=== PATIENT | female | born 1990 | race Caucasian/White ===

== ENCOUNTER 2019-09-30 09:27 | Emergency (ER) | payer SELFPAY ==
[~2019-09-30] VITALS: Ht 173 cm; Wt 86.0 kg
[~2019-09-30 09:27] MED LIST: AZIT-21 PO; CEPH500C PO; CYCL10TA9 PO; DEPRESSION; DOXY100C2 PO; FLUO40CA12 PO; GUAI5LIQ3 PO; HYDR25CA5 PO; METR500T PO; NAPR-243 PO; NITR100C3 PO; ONDA-42 PO; PREN1TAB39 PO; SERT25TA PO; SERT50TA PO
--- OUTSIDE RECORDS SUMMARY | 2019-09-30 09:33 | XMS REPORT | Continuity of Care Document ---
Author Organization Unknown Address Unknown Phone Unavailable Allergies There is no data. Medications There is no data. Problems There is no data. Procedures There is no data. Results There is no data. Encounters ACCT No. Visit Date/Time Discharge Status Pt. Type Provider Facility Loc./Unit Complaint [id number] 12/14/2018 15:10:00 12/14/2018 23:59: 59 CLS Outpatient RUDY LEIVA [facility]
[2019-09-30] MEDS ORDERED: BENZ-13 PO (09:39)
[2019-09-30] MEDS ORDERED: AZIT1PAC PO (09:39)
[2019-09-30] MEDS ORDERED: OMEP20CA18 (09:39)
[2019-09-30] MEDS ORDERED: ESTR0.5T (09:39)
[2019-09-30] MEDS ORDERED: RT-ALBUINH IH (09:39)
[2019-09-30] MEDS ORDERED: PRD50T PO (09:50)
--- NOTE | 2019-09-30 09:51 | ED Cough/URI ---
General Chief Complaint: Respiratory Problems Stated Complaint: COUGH,SOA,HEADACHE Nursing Triage Note: Patient c/o cough x 10 days. was treated at urgent care on 09/24 and given inhaler, zithromax and tessalon pearles. patient states she has not gotten better Sepsis Screen: No Definite Risk Source: patient Exam Limitations: no limitations History of Present Illness Date Seen by Provider: Sep 30, 2019 Time Seen by Provider: 09:47 Initial Comments Intermittent cough and shortness of breath for the past 10 days. Was seen at an outpatient clinic and diagnosed with bronchitis and given prescription for Z- Mike, albuterol inhaler and Tessalon Perles. Denies fever or chills, chest pain. Only has shortness of air when she is coughing. Patient is a smoker, denies history of lung disease. No contact with anyone with COVID-19 Allergies and Home Medications Allergies Coded Allergies: amoxicillin (Verified Allergy, Unknown, 09/30/19) Home Medications Albuterol Sulfate 1 Puff Puff, 2 PUFF IH Q4H, (Reported) 1 PUFF = 90 MCG Prednisone 50 Mg Tab, 50 MG PO DAILY Prescribed by: KANDIS CAMP on 09/30/19 0950 Patient Home Medication List Home Medication List Reviewed: Yes Review of Systems Review of Systems Constitutional: see HPI; No chills, No diaphoresis, No fever, No malaise EENTM: no symptoms reported Respiratory: see HPI, cough; No hemoptysis, No orthopnea, No phlegm; short of breath; No stridor, No wheezing Cardiovascular: No chest pain, No edema, No palpitations Gastrointestinal: No abdominal pain, No loss of appetite, No nausea, No vomiting Musculoskeletal: No back pain, No joint pain Past Rjhsyxr-Zdzwvh-Armsxu Hx Past Med/Social Hx: Reviewed Nursing Past Med/Soc Hx Patient Social History Alcohol Use: Denies Use Recreational Drug Use: No Smoking Status: Current Everyday Smoker Type Used: Cigarettes Recent Foreign Travel: No Contact w/Someone Who Travel: No Recent Infectious Disease Expo: No Past Medical History Surgeries: Yes Hysterectomy Respiratory: Yes Asthma Cardiac: No Neurological: No Genitourinary: No Gastrointestinal: No Musculoskeletal: No Endocrine: No HEENT: No Cancer: No Psychosocial: No Integumentary: No Blood Disorders: No Physical Exam Vital Signs - First Documented 09/30/19 09:33 Temp 36.5 Pulse 90 Resp 18 B/P (MAP) 138/87 (104) Pulse Ox 98 Capillary Refill : Less Than 3 Seconds Height: '" Weight: lbs. oz. kg; 28.00 BMI Method: General Appearance: WD/WN, no apparent distress HEENT: PERRL/EOMI, normal ENT inspection Neck: non-tender, supple Respiratory: chest non-tender, lungs clear, normal breath sounds, no respiratory distress, no accessory muscle use Cardiovascular: regular rate, rhythm, no edema Gastrointestinal: non tender, soft Neurologic/Psychiatric: alert, normal mood/affect Progress/Results/Core Measures Suspected Sepsis Recent Fever Within 48 Hours: No Infection Criteria Present: None New/Unexplained Altered Menta: No Sepsis Screen: No Definite Risk SIRS Temperature: Pulse: 90 Respiratory Rate: 18 Blood Pressure 138 /87 Mean: 104 Results/Orders Vital Signs/I&O 09/30/19 09:33 Temp 36.5 Pulse 90 Resp 18 B/P (MAP) 138/87 (104) Pulse Ox 98 Capillary Refill : Less Than 3 Seconds Blood Pressure Mean: 104 Departure Impression Primary Impression: Acute bronchitis Qualified Codes: J20.9 - Acute bronchitis, unspecified Disposition: 01 HOME, SELF-CARE Condition: Stable Departure-Patient Inst. Decision time for Depature: 09:49 Referrals: [facility] (PCP) Primary Care Physician CHIOMA CLEMENTE APRN (Family) Primary Care Physician Patient Instructions: Acute Bronchitis, Adult (DC) Scripts Prednisone (Prednisone) 50 Mg Tab 50 MG PO DAILY, #7 TAB Prov: KANDIS CAMP DO 09/30/19 Work/School Note: Work Release Form Date Seen in the Emergency Department: Sep 30, 2019 Return to Work: October 21, 2019 KANDIS CAMP DO Sep 30, 2019 09:50
[2019-09-30 10:13] VITALS: BP 138/87
== END 2019-09-30 10:13 | disposition home or self-care (01) ==
LOC: MERGE 09:30 → ER FS 09:30
DX: J20.9 Acute bronchitis, unspecified (principal); J45.909 Unspecified asthma, uncomplicated; F17.210 Nicotine dependence, cigarettes, uncomplicated; Z88.0 Allergy status to penicillin
CPT/HCPCS: 99282

== ENCOUNTER 2019-12-30 19:37 | Emergency (ER) | payer SELFPAY ==
[~2019-12-30] VITALS: Ht 172 cm; Wt 89.0 kg
[~2019-12-30 19:37] MED LIST changes: +AZIT1PAC PO; +BENZ-13 PO; +ESTR0.5T; +OMEP20CA18; +PRD50T PO; +RT-ALBUINH IH
--- OUTSIDE RECORDS SUMMARY | 2019-12-30 19:45 | XMS REPORT ---
Author Author Saira Keaton Doctor Organization [facility] Address Unknown Phone Unavailable Care Team Providers Care Grades 9 12 Tutor Name Role Phone Migration, Doctor Unavailable Unavailable PROBLEMS Type Condition ICD9-CM Code DDI27-AH Code Onset Dates Condition S tatus SNOMED Code Problem Dysmenorrhea N94.6 16 Jul, 2016 Active 2665 87026 Problem Vaginal itching N89.8 Aug, Active 3 4622077 Problem Cervical dysplasia N87.9 10 Jul, 2016 Active 86515789 Problem Obesity E66.9 Active 692032945 Problem Anxiety and depression F41.9 Jan, Acti ve 447887037 Problem Depression F32.9 Active 640922952 Problem Cigarette nicotine dependence, uncomplicated F1 7.210 May, Active 385144222 Problem Intractable migraine without status migrainosus, unspecified migraine type G43.919 Active 741860771 Problem Postmenopausal symptoms N95.9 Active 024414687 Problem Reflux gastritis K29.60 Active 574 15017 ALLERGIES No Information ENCOUNTERS Encounter Location Date Diagnosis [facility] [address] [id number] [address] Sep, Bronchitis J40 [facility] [place] [address] [facility] [id number] [address] [place] [address] Sep, [facility] [address] [id number], [place] [address] Jul, Gastroenteritis K52.9 ; Chil ls R68.83 and Headache R51 [address] [id number] [address] Jul, Depression F32.[address] [id number], [place] [address] Jul, Depression F32.9 ; Reflux ga stritis K29.60 and Postmenopausal symptoms N95.[address] [id number] [place] [address] Jun, Postmenopausal symptoms N95. 9 ; Reflux gastritis K29.60 and Depression F32.9 [facility] [place] [address] [facility] [place] [place] [id number] [address] [place] [address] May, Elevated glucose R73.[address] [id number] [address] May, Postmenopausal symptoms N95. 9 ; Reflux gastritis K29.60 ; Depression F32.9 ; Cigarette nicotine dependence, uncomplicated F17.210 and Obesity E66.[address] [id number], [place] [address] May, Depression F32.9 ; Postmenop ausal symptoms N95.9 ; Reflux gastritis K29.60 ; Cigarette nicotine dependence, uncomplicated F17.210 and Obesity E66.9 [facility] [address] [id number], [place] [address] Jan, Acute bacterial conjunctivit is of right eye H10.[address] [id number], [place] [address] Jan, Right wrist pain M25.531 and Injury of right upper extremity, initial encounter S49.91XA [facility] [address] [id number], [place] [address] Jan, [facility] [address] [id number], [place] [address] Jan, Right wrist pain M25.531 and Injury of right upper extremity, initial encounter S49.91XA [address] [id number], [place] [address] Jan, Injury of right upper extrem ity, initial encounter S49.91XA and Right wrist pain M25.531 [facility] [address] [id number], [place] [address] Jan, Injury of right upper extrem ity, initial encounter S49.91XA and Drug screening, pre-employment Z02.1 [facility] [address] [id number] [address] Dec, Bronchitis J40 ; Sore throat J02.9 and Viral upper respiratory tract infection J06.9 [facility] [address] [id number] [place] [address] Aug, Intractable migraine without status migrainosus, unspecified migraine type G43.919 [facility] [address] [id number] [address] Jul, Viral upper respiratory trac t infection J06.9 [facility] [place] [address] [facility] [id number] [address] [place] [address] May, [facility] [place] [address] [facility] [id number] [address] [place] [address] May, [facility] [place] [address] [facility] [id number] [address] [place] [address] May, [facility] [place] [address] [facility] [id number] [address] [place] [address] Jan, [facility] [place] [address] [facility] [place] [id number] [address] [place] [address] Jan, [facility] [place] [address] [facility] [id number] [address] [place] [address] Sep, [facility] [place] [address] [id number] [address] [place] [address] Sep, [facility] [place] [address] [facility] [place] [id number] [address] [place] [address] October, [facility] [place] [address] [facility] [place] [id number] [address] [place] [address] October, [facility] [place] [address] [facility] [place] [id number] [address] [place] [address] Jul, [facility] [address] [id number] [address] [place] [address], [place] [address] Jul, [facility] [address] [id number] [address] [place] [address], [place] [address] Apr, [facility] [address] [id number] [address] [place] [address], [place] [address] Apr, [facility] [address] [id number] [address] [place] [address], [place] [address] Feb, [facility] [address] [id number] [address] [place] [address], [place] [address] Jul, [facility] [address] [id number] [address] [place] [address], [place] [address] Jul, [facility] [address] [id number] [address] [place] [address], [place] [address] Jun, [facility] [address] [id number] [address] [place] [address], [place] [address] May, [facility] [address] [id number] [address] [place] [address], [place] [address] May, [facility] [address] [id number] [address] [place] [address], [place] [address] May, [facility] [address] [id number] [address] [place] [address], [place] [address] Apr, [facility] [address] [id number] [address] [place] [address], [place] [address] Apr, [facility] [address] [id number] [address] [place] [address], [place] [address] Mar, [facility] [address] [id number] [address] [place] [address], [place] [address] Mar, [facility] [address] [id number] [address] [place] [address], [place] [address] Mar, [facility] [address] [id number] [address] [place] [address], [place] [address] 30 Feb, 2012 [facility] [address] [id number] [address] [place] [address], [place] [address] 13 Feb, 2012 [facility] [address] [id number] [address] [place] [address], [place] [address] 10 Feb, 2012 [facility] [address] [id number] [address] [place] [address], [place] [address] 23 Jan, 2012 [facility] [address] [id number] [address] [place] [address], [place] [address] Jan, [facility] [address] [id number] [address] [place] [address], [place] [address] 16 Jan, 2012 [facility] [address] [id number] [address] [place] [address], [place] [address] Jan, [facility] [address] [id number] [address] [place] [address], [place] [address] Jan, [facility] [address] [id number] [address] [place] [address], [place] [address] Jan, [facility] [address] [id number] [address] [place] [address], [place] [address] Dec, [facility] [address] [id number] [address] [place] [address], [place] [address] Nov, [facility] [address] [id number] [address] [place] [address], [place] [address] Nov, [facility] [address] [id number] [address] [place] [address], [place] [address] Nov, [facility] [address] [id number] [address] [place] [address], [place] [address] Nov, [facility] [address] [id number] [address] [place] [address], [place] [address] Nov, [facility] [address] [id number] [address] [place] [address], [place] [address] Nov, [facility] [address] [id number] [address] [place] [address], [place] [address] Nov, [facility] [address] [id number] [address] [place] [address], [place] [address] Nov, [facility] [address] [id number] [address] [place] [address], [place] [address] Nov, [facility] [address] [id number] [address] [place] [address], [place] [address] October, [facility] [address] [id number] [address] [place] [address], [place] [address] October, [facility] [address] [id number] [address] [place] [address], [place] [address] October, [facility] [address] [id number] [address] [place] [address], [place] [address] October, [facility] [address] [id number] [address] [place] [address], [place] [address] October, [facility] [address] [id number] [address] [place] [address], [place] [address] October, [facility] [address] [id number] [address] [place] [address], [place] [address] Sep, [facility] [address] [id number] [address] [place] [address], [place] [address] Sep, [facility] [address] [id number] [address] [place] [address], [place] [address] Sep, [facility] [address] [id number] [address] [place] [address], [place] [address] Aug, [facility] [address] [id number] [address] [place] [address], [place] [address] Aug, [facility] [address] [id number] [address] [place] [address], [place] [address] Jul, [facility] [address] [id number] [address] [place] [address] 15 Jul, 2011 [facility] [place] [address] [id number] [address] [place] [address] 10 Jul, 2011 [facility] [place] [address] [id number] [address] [place] [address] Jul, [facility] [place] [address] [id number] [address] [place] [address] Jul, [facility] [place] [address] [id number] [address] [place] [address] Jun, [facility] [place] [address] [id number] [address] [place] [address] Jun, [facility] [place] [address] [facility] [place] [place] [id number] [address] [place] [address] Jun, [facility] [place] [address] [facility] [place] [id number] [address] [place] [address] Jun, [facility] [place] [address] [id number] [address] [place] [address] May, [facility] [place] [address] [facility] [id number] [address] [place] [address] May, IMMUNIZATIONS No Known Immunizations SOCIAL HISTORY Never Assessed REASON FOR VISIT PLAN OF CARE VITAL SIGNS MEDICATIONS No Known Medications RESULTS No Results PROCEDURES No Known procedures INSTRUCTIONS MEDICATIONS ADMINISTERED No Known Medications MEDICAL (GENERAL) HISTORY Type Description Date Medical History acid reflux Medical History Anxiety and depression Medical History Dysmenorrhea Medical History Cigarette nicotine dependence, uncomplic ated Medical History Cervical dysplasia Medical History Vaginal itching Medical History Intractable migraine without status migrainosus, unspecified migraine type Surgical History hysterectomy Surgical History gastrectomy Surgical History wisdom teeth removed Surgical History oral surgery to remove all teeth Surgical History cholecystectomy Hospitalization History surgeries Hospitalization History child
--- OUTSIDE RECORDS SUMMARY | 2019-12-30 19:45 | XMS REPORT ---
Author Author Saira Keaton Doctor Organization [facility] Address Unknown Phone Unavailable Care Team Providers Care Rn Clinical Review Name Role Phone Migration, Doctor Unavailable Unavailable PROBLEMS Type Condition ICD9-CM Code SAQ42-QQ Code Onset Dates Condition S tatus SNOMED Code Problem Dysmenorrhea N94.6 16 Jul, 2016 Active 2665 06322 Problem Vaginal itching N89.8 Aug, Active 3 3424459 Problem Cervical dysplasia N87.9 10 Jul, 2016 Active 04535549 Problem Obesity E66.9 Active 963767071 Problem Anxiety and depression F41.9 Jan, Acti ve 111507371 Problem Depression F32.9 Active 678843095 Problem Cigarette nicotine dependence, uncomplicated F1 7.210 May, Active 912213172 Problem Intractable migraine without status migrainosus, unspecified migraine type G43.919 Active 112025317 Problem Postmenopausal symptoms N95.9 Active 799687205 Problem Reflux gastritis K29.60 Active [id number] ALLERGIES No Information ENCOUNTERS Encounter Location Date Diagnosis [facility] [address] [id number] [address] Sep, Bronchitis J40 [facility] [address] [facility] [id number] [place] [address] Sep, [facility] [address] [id number], [place] [address] Jul, Gastroenteritis K52.9 ; Chil ls R68.83 and Headache R51 [address] 340[address] [id number], [place] [address] Jul, Depression F32.[address] [id number], [place] [address] Jul, Depression F32.9 ; Reflux ga stritis K29.60 and Postmenopausal symptoms N95.[address] [id number] [place] [address] Jun, Postmenopausal symptoms N95. 9 ; Reflux gastritis K29.60 and Depression F32.9 [facility] [address] [facility] [id number] [address] [address] May, Elevated glucose R73.[address] 340 [id number], [place] [address] May, Postmenopausal symptoms N95. 9 ; Reflux gastritis K29.60 ; Depression F32.9 ; Cigarette nicotine dependence, uncomplicated F17.210 and Obesity E66.[address] [id number], [place] [address] May, Depression F32.9 ; Postmenop ausal symptoms N95.9 ; Reflux gastritis K29.60 ; Cigarette nicotine dependence, uncomplicated F17.210 and Obesity E66.9 [facility] [address] [id number], [place] [address] Jan, Acute bacterial conjunctivit is of right eye H10.[address] 340 [id number], [place] [address] Jan, Right wrist pain M25.531 and Injury of right upper extremity, initial encounter S49.91XA [facility] [address] [id number], [place] [address] Jan, [facility] [address] [id number], [place] [address] Jan, Right wrist pain M25.531 and Injury of right upper extremity, initial encounter S49.91XA [address] 340[address] [id number], [place] [address] Jan, Injury of right upper extrem ity, initial encounter S49.91XA and Right wrist pain M25.531 [facility] [address] [id number], [place] [address] Jan, Injury of right upper extrem ity, initial encounter S49.91XA and Drug screening, pre-employment Z02.1 [facility] [address] [id number] [address] Dec, Bronchitis J40 ; Sore throat J02.9 and Viral upper respiratory tract infection J06.9 [facility] [address] [id number] [place] [address] Aug, Intractable migraine without status migrainosus, unspecified migraine type G43.919 [facility] [address] [id number] [place] [address] Jul, Viral upper respiratory trac t infection J06.9 [facility] [address] [facility] [id number] [address] [place] [address] May, [facility] [address] [facility] [id number] [address] [place] [address] May, [facility] [address] [facility] [id number] [address] [place] [address] May, [facility] [address] [facility] [id number] [address] [place] [address] Jan, [facility] [address] [facility] [id number] [address] [place] [phone] Jan, [facility] [address] [facility] [id number] [address] [place] [address] Sep, [facility] [address] [id number] [address] [place] [address] Sep, [facility] [address] [facility] [id number] [address] [place] [phone] October, [facility] [address] [facility] [id number] [address] [place] [address] October, [facility] [address] [facility] [id number] [address] [place] [address] Jul, [facility] [address] [id number] [address] [place] [address], [place] [address] Jul, [facility] [address] [id number] [address] [place] [address], [place] [address] Apr, [facility] [address] [id number] [address] [place] [address], [place] [address] Apr, [facility] [address] [id number] [address] [place] [address], [place] [address] Feb, [facility] [address] [id number] [address] [place] [address], [place] [address] Jul, [facility] [address] [id number] [address] [place] [address], [place] [address] Jul, [facility] [address] [id number] [address] [place] [address], [place] [address] Jun, [facility] [address] [id number] [address] [place] [address], [place] [address] May, [facility] [address] [id number] [address] [place] [address], [place] [address] May, [facility] [address] [id number] [address] [place] [address], [place] [address] May, [facility] [address] [id number] [address] [place] [address], [place] [address] Apr, [facility] [address] [id number] [address] [place] [address], [place] [address] Apr, [facility] [address] [id number] [address] [place] [address], [place] [address] Mar, [facility] [address] [id number] [address] [place] [address], [place] [address] Mar, [facility] [address] [id number] [address] [place] [address], [place] [address] Mar, [facility] [address] [id number] [address] [place] [address], [place] [address] 30 Feb, 2012 [facility] [address] [id number] [address] [place] [address], [place] [address] 13 Feb, 2012 [facility] [address] [id number] [address] [place] [address], [place] [address] 10 Feb, 2012 [facility] [address] [id number] [address] [place] [address], [place] [address] 23 Jan, 2012 [facility] [address] [id number] [address] [place] [address], [place] [address] Jan, [facility] [address] [id number] [address] [place] [address], [place] [address] 16 Jan, 2012 [facility] [address] [id number] [address] [place] [address], [place] [address] Jan, [facility] [address] [id number] [address] [place] [address], [place] [address] Jan, [facility] [address] [id number] [address] [place] [address], [place] [address] Jan, [facility] [address] [id number] [address] [place] [address], [place] [address] Dec, [facility] [address] [id number] [address] [place] [address], [place] [address] Nov, [facility] [address] [id number] [address] [place] [address], [place] [address] Nov, [facility] [address] [id number] [address] [place] [address], [place] [address] Nov, [facility] [address] [id number] [address] [place] [address], [place] [address] Nov, [facility] [address] [id number] [address] [place] [address], [place] [address] Nov, [facility] [address] [id number] [address] [place] [address], [place] [address] Nov, [facility] [address] [id number] [address] [place] [address], [place] [address] Nov, [facility] [address] [id number] [address] [place] [address], [place] [address] Nov, [facility] [address] [id number] [address] [place] [address], [place] [address] Nov, [facility] [address] [id number] [address] [place] [address], [place] [address] October, [facility] [address] [id number] [address] [place] [address], [place] [address] October, [facility] [address] [id number] [address] [place] [address], [place] [address] October, [facility] [address] [id number] [address] [place] [address], [place] [address] October, [facility] [address] [id number] [address] [place] [address], [place] [address] October, [facility] [address] [id number] [address] [place] [address], [place] [address] October, [facility] [address] [id number] [address] [place] [address], [place] [address] Sep, [facility] [address] [id number] [address] [place] [address], [place] [address] Sep, [facility] [address] [id number] [address] [place] [address], [place] [address] Sep, [facility] [address] [id number] [address] [place] [address], [place] [address] Aug, [facility] [address] [id number] [address] [place] [address], [place] [address] Aug, [facility] [address] [id number] [address] [place] [address], [place] [address] Jul, [facility] [address] [id number] [address] [place] [id number] 15 Jul, 2011 [facility] [address] [id number] [address] [place] [address] 10 Jul, 2011 [facility] [address] [id number] [address] [place] [phone] Jul, [facility] [address] [id number] [address] [place] [address] Jul, [facility] [address] [id number] [address] [place] [address] Jun, [facility] [address] [id number] [address] [place] [address] Jun, [facility] [address] [facility] [id number] [address] [place] [phone] Jun, [facility] [address] [facility] [id number] [address] [place] [phone] Jun, [facility] [address] [id number] [address] [place] [address] May, [facility] [address] [facility] [id number] [address] [place] [phone] May, IMMUNIZATIONS No Known Immunizations SOCIAL HISTORY [...]
--- OUTSIDE RECORDS SUMMARY | 2019-12-30 19:45 | XMS REPORT ---
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 Name Role Phone Migration, Doctor Unavailable Unavailable PROBLEMS Type Condition ICD9-CM Code MKA01-DU Code Onset Dates Condition S tatus SNOMED Code Problem Dysmenorrhea N94.6 16 Jul, 2016 Active 2665 43594 Problem Vaginal itching N89.8 Aug, Active 3 2952802 Problem Cervical dysplasia N87.9 10 Jul, 2016 Active 83557937 Problem Obesity E66.9 Active 841761950 Problem Anxiety and depression F41.9 Jan, Acti ve 637386164 Problem Depression F32.9 Active 335613984 Problem Cigarette nicotine dependence, uncomplicated F1 7.210 May, Active 931929786 Problem Intractable migraine without status migrainosus, unspecified migraine type G43.919 Active 457968211 Problem Postmenopausal symptoms N95.9 Active 004246052 Problem Reflux gastritis K29.60 Active [id number] ALLERGIES No Information ENCOUNTERS Encounter Location Date Diagnosis [facility] [address] [id number], [place] [address] Sep, Bronchitis J40 [facility] [address] [facility] [id number] [place] [address] Sep, [facility] [address] [id number], [place] [address] Jul, Gastroenteritis K52.9 ; Chil ls R68.83 and Headache R51 [address] [id number], [place] [address] Jul, Depression F32.[address] [id number], [place] [address] Jul, Depression F32.9 ; Reflux ga stritis K29.60 and Postmenopausal symptoms N95.[address] [id number] [place] [address] Jun, Postmenopausal symptoms N95. 9 ; Reflux gastritis K29.60 and Depression F32.9 [facility] [address] [facility] [id number] [place] [address] May, Elevated glucose R73.[address] [id number], [place] [address] May, Postmenopausal symptoms N95. 9 ; Reflux gastritis K29.60 ; Depression F32.9 ; Cigarette nicotine dependence, uncomplicated F17.210 and Obesity E66.[address] [id number], [place] [address] May, Depression F32.9 ; Postmenop ausal symptoms N95.9 ; Reflux gastritis K29.60 ; Cigarette nicotine dependence, uncomplicated F17.210 and Obesity E66.9 [facility] [address] [id number], [place] [address] Jan, Acute bacterial conjunctivit is of right eye H10.[address] [id number], [place] [address] Jan, Right wrist pain M25.531 and Injury of right upper extremity, initial encounter S49.91XA [facility] [address] [id number], [place] [address] Jan, [facility] [address] [id number], [place] [address] Jan, Right wrist pain M25.531 and Injury of right upper extremity, initial encounter S49.91XA [address] [id number], [place] [address] Jan, Injury of right upper extrem ity, initial encounter S49.91XA and Right wrist pain M25.531 [facility] [address] [id number], [place] [address] Jan, Injury of right upper extrem ity, initial encounter S49.91XA and Drug screening, pre-employment Z02.1 [facility] [address] [id number] [place] [address] Dec, Bronchitis J40 ; Sore throat J02.9 and Viral upper respiratory tract infection J06.9 [facility] [address] [id number] [place] [address] Aug, Intractable migraine without status migrainosus, unspecified migraine type G43.919 [facility] [address] [id number] [place] [address] Jul, Viral upper respiratory trac t infection J06.9 [facility] [address] [facility] [id number] [address] [place] [address] May, [facility] [address] [facility] [id number] [address] [place] [address] May, [facility] [address] [facility] [id number] [address] [place] [address] May, [facility] [address] [facility] [id number] [address] [place] [address] Jan, [facility] [address] [facility] [id number] [address] [place] [address] Jan, [facility] [address] [facility] [id number] [address] [place] [address] Sep, [facility] [address] [id number] [address] [place] [address] Sep, [facility] [address] [facility] [id number] [address] [place] [address] October, [facility] [address] [facility] [id number] [address] [place] [address] October, [facility] [address] [facility] [id number] [address] [place] [address] Jul, [facility] [address] [id number] [address] [place] [address], [place] [address] Jul, [facility] [address] [id number] [address] [place] [address], [place] [address] Apr, [facility] [address] [id number] [address] [place] [address], [place] [address] Apr, [facility] [address] [id number] [address] [place] [address], [place] [address] Feb, [facility] [address] [id number] [address] [place] [address], [place] [address] Jul, [facility] [address] [id number] [address] [place] [address], [place] [address] Jul, [facility] [address] [id number] [address] [place] [address], [place] [address] Jun, [facility] [address] [id number] [address] [place] [address], [place] [address] May, [facility] [address] [id number] [address] [place] [address], [place] [address] May, [facility] [address] [id number] [address] [place] [address], [place] [address] May, [facility] [address] [id number] [address] [place] [address], [place] [address] Apr, [facility] [address] [id number] [address] [place] [address], [place] [address] Apr, [facility] [address] [id number] [address] [place] [address], [place] [address] Mar, [facility] [address] [id number] [address] [place] [address], [place] [address] Mar, [facility] [address] [id number] [address] [place] [address], [place] [address] Mar, [facility] [address] [id number] [address] [place] [address], [place] [address] 30 Feb, 2012 [facility] [address] [id number] [address] [place] [address], [place] [address] 13 Feb, 2012 [facility] [address] [id number] [address] [place] [address], [place] [address] 10 Feb, 2012 [facility] [address] [id number] [address] [place] [address], [place] [address] 23 Jan, 2012 [facility] [address] [id number] [address] [place] [address], [place] [address] Jan, [facility] [address] [id number] [address] [place] [address], [place] [address] 16 Jan, 2012 [facility] [address] [id number] [address] [place] [address], [place] [address] Jan, [facility] [address] [id number] [address] [place] [address], [place] [address] Jan, [facility] [address] [id number] [address] [place] [address], [place] [address] Jan, [facility] [address] [id number] [address] [place] [address], [place] [address] Dec, [facility] [address] [id number] [address] [place] [address], [place] [address] Nov, [facility] [address] [id number] [address] [place] [address], [place] [address] Nov, [facility] [address] [id number] [address] [place] [address], [place] [address] Nov, [facility] [address] [id number] [address] [place] [address], [place] [address] Nov, [facility] [address] [id number] [address] [place] [address], [place] [address] Nov, [facility] [address] [id number] [address] [place] [address], [place] [address] Nov, [facility] [address] [id number] [address] [place] [address], [place] [address] Nov, [facility] [address] [id number] [address] [place] [address], [place] [address] Nov, [facility] [address] [id number] [address] [place] [address], [place] [address] Nov, [facility] [address] [id number] [address] [place] [address], [place] [address] October, [facility] [address] [id number] [address] [place] [address], [place] [address] October, [facility] [address] [id number] [address] [place] [address], [place] [address] October, [facility] [address] [id number] [address] [place] [address], [place] [address] October, [facility] [address] [id number] [address] [place] [address], [place] [address] October, [facility] [address] [id number] [address] [place] [address], [place] [address] October, [facility] [address] [id number] [address] [place] [address], [place] [address] Sep, [facility] [address] [id number] [address] [place] [address], [place] [address] Sep, [facility] [address] [id number] [address] [place] [address], [place] [address] Sep, [facility] [address] [id number] [address] [place] [address], [place] [address] Aug, [facility] [address] [id number] [address] [place] [address], [place] [address] Aug, [facility] [address] [id number] [address] [place] [address], [place] [address] Jul, [facility] [address] [id number] [address] [place] [address] 15 Jul, 2011 [facility] [address] [id number] [address] [place] [address] Jul, [facility] [address] [id number] [address] [place] [address] Jul, [facility] [address] [id number] [address] [place] [address] Jul, [facility] [address] [id number] [address] [place] [address] Jun, [facility] [address] [id number] [address] [place] [address] Jun, [facility] [address] [id number] [address] [place] [address] Jun, [facility] [address] [id number] [address] [place] [address] Jun, [facility] [address] [id number] [address] [place] [address] May, [facility] [address] [facility] [id number] [address] [place] [address] May, IMMUNIZATIONS No Known Immunizations SOCIAL HISTORY Never Assessed REASON FOR VISIT PLAN OF CARE VITAL SIGNS Height 66 in 2011-12-01 Weight 148 lbs 2011-12-01 Temperature 97.7 degrees Fahrenheit 2011-12-01 Heart Rate 90 bpm 2011-12-01 Respiratory Rate 18 2011-12-01 Blood pressure systolic 110 mmHg 2011-12-01 Blood pressure diastolic 70 mmHg 2011-12-01 MEDICATIONS No Known Medications RESULTS No Results PROCEDURES Procedure Date Ordered Result Body Site URINALYSIS, AUTO, W/O SCOPE December 01, 2011 STREP CULTURE December 01, 2011 INSTRUCTIONS MEDICATIONS ADMINISTERED No Known Medications MEDICAL [...]
--- OUTSIDE RECORDS SUMMARY | 2019-12-30 19:45 | XMS REPORT ---
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 Name Role Phone Migration, Doctor Unavailable Unavailable PROBLEMS Type Condition ICD9-CM Code FMZ84-HA Code Onset Dates Condition S tatus SNOMED Code Problem Dysmenorrhea N94.6 16 Jul, 2016 Active 2665 50667 Problem Vaginal itching N89.8 Aug, Active 3 4582717 Problem Cervical dysplasia N87.9 10 Jul, 2016 Active 89196551 Problem Obesity E66.9 Active 736758795 Problem Anxiety and depression F41.9 Jan, Acti ve 702867621 Problem Depression F32.9 Active 474754500 Problem Cigarette nicotine dependence, uncomplicated F1 7.210 May, Active 645987326 Problem Intractable migraine without status migrainosus, unspecified migraine type G43.919 Active 289412006 Problem Postmenopausal symptoms N95.9 Active 791534183 Problem Reflux gastritis K29.60 Active 574 43092 ALLERGIES No Information ENCOUNTERS Encounter Location Date Diagnosis [facility] [address] [id number] [address] Sep, Bronchitis J40 [facility] [address] [facility] [id number] [place] [address] Sep, [facility] [address] 340 [id number] [place] [address] Jul, Gastroenteritis K52.9 ; Chil ls R68.83 and Headache R51 [address] 340B [id number] [place] [address] Jul, Depression F32.[address] 340B [id number] [place] [address] Jul, Depression F32.9 ; Reflux ga stritis K29.60 and Postmenopausal symptoms N95.[address] 340B [id number] [place] [address] Jun, Postmenopausal symptoms N95. 9 ; Reflux gastritis K29.60 and Depression F32.9 [facility] [address] [facility] [id number] [address] [address] May, Elevated glucose R73.[address] 340 [id number] [address] May, Postmenopausal symptoms N95. 9 ; Reflux gastritis K29.60 ; Depression F32.9 ; Cigarette nicotine dependence, uncomplicated F17.210 and Obesity E66.[address] 340B [id number] [place] [address] May, Depression F32.9 ; Postmenop ausal symptoms N95.9 ; Reflux gastritis K29.60 ; Cigarette nicotine dependence, uncomplicated F17.210 and Obesity E66.9 [facility] [address] 340 [id number] [place] [address] Jan, Acute bacterial conjunctivit is of right eye H10.[address] 340 [id number] [address] Jan, Right wrist pain M25.531 and Injury of right upper extremity, initial encounter S49.91XA [facility] IN [facility] [address] 340 [id number] [address] Jan, [facility] IN [facility] [address] 340 [id number] [place] [address] Jan, Right wrist pain M25.531 and Injury of right upper extremity, initial encounter S49.91XA [address] 340B [id number] [place] [address] Jan, Injury of right upper extrem ity, initial encounter S49.91XA and Right wrist pain M25.531 [facility] IN [facility] [address] 340 [id number] [address] Jan, Injury of right upper extrem ity, initial encounter S49.91XA and Drug screening, pre-employment Z02.1 [facility] [address] 340 [id number] [place] [address] Dec, Bronchitis J40 ; Sore throat J02.9 and Viral upper respiratory tract infection J06.9 [facility] [address] 340B [id number] [place] [address] Aug, Intractable migraine without status migrainosus, unspecified migraine type G43.919 [facility] [address] 340 [id number] [place] [address] Jul, Viral upper respiratory trac t infection J06.9 [facility] [address] [facility] [id number] [address] [place] [address] May, [facility] [address] [facility] [id number] [address] [place] [address] May, [facility] [address] [facility] [id number] [address] [place] [address] May, [facility] [address] [facility] [id number] [address] [place] [address] Jan, [facility] [address] [facility] [id number] [address] [place] [address] Jan, [facility] [address] [facility] [id number] [address] [place] [address] Sep, [facility] [address] [id number] [address] [place] [address] Sep, [facility] [address] [facility] [id number] [address] [place] [address] October, [facility] [address] [facility] [id number] [address] [place] [address] October, [facility] [address] [facility] [id number] [address] [place] [address] Jul, [facility] [address] [id number] [address] [place] [address], [place] [address] Jul, [facility] [address] [id number] [address] [place] [address], [place] [address] Apr, [facility] [address] [id number] [address] [place] [address], [place] [address] Apr, [facility] [address] [id number] [address] [place] [address], [place] [address] Feb, [facility] [address] [id number] [address] [place] [address], [place] [address] Jul, [facility] [address] [id number] [address] [place] [address], [place] [address] Jul, [facility] [address] [id number] [address] [place] [address], [place] [address] Jun, [facility] [address] [id number] [address] [place] [address], [place] [address] May, [facility] [address] [id number] [address] [place] [address], [place] [address] May, [facility] [address] [id number] [address] [place] [address], [place] [address] May, [facility] [address] [id number] [address] [place] [address], [place] [address] Apr, [facility] [address] [id number] [address] [place] [address], [place] [address] Apr, [facility] [address] [id number] [address] [place] [address], [place] [address] Mar, [facility] [address] [id number] [address] [place] [address], [place] [address] Mar, [facility] [address] [id number] [address] [place] [address], [place] [address] Mar, [facility] [address] [id number] [address] [place] [address], [place] [address] 30 Feb, 2012 [facility] [address] [id number] [address] [place] [address], [place] [address] 13 Feb, 2012 [facility] [address] [id number] [address] [place] [address], [place] [address] 10 Feb, 2012 [facility] [address] [id number] [address] [place] [address], [place] [address] 23 Jan, 2012 [facility] [address] [id number] [address] [place] [address], [place] [address] Jan, [facility] [address] [id number] [address] [place] [address], [place] [address] 16 Jan, 2012 [facility] [address] [id number] [address] [place] [address], [place] [address] Jan, [facility] [address] [id number] [address] [place] [address], [place] [address] Jan, [facility] [address] [id number] [address] [place] [address], [place] [address] Jan, [facility] [address] [id number] [address] [place] [address], [place] [address] Dec, [facility] [address] [id number] [address] [place] [address], [place] [address] Nov, [facility] [address] [id number] [address] [place] [address], [place] [address] Nov, [facility] [address] [id number] [address] [place] [address], [place] [address] Nov, [facility] [address] [id number] [address] [place] [address], [place] [address] Nov, [facility] [address] [id number] [address] [place] [address], [place] [address] Nov, [facility] [address] [id number] [address] [place] [address], [place] [address] Nov, [facility] [address] [id number] [address] [place] [address], [place] [address] Nov, [facility] [address] [id number] [address] [place] [address], [place] [address] Nov, [facility] [address] [id number] [address] [place] [address], [place] [address] Nov, [facility] [address] [id number] [address] [place] [address], [place] [address] October, [facility] [address] [id number] [address] [place] [address], [place] [address] October, [facility] [address] [id number] [address] [place] [address], [place] [address] October, [facility] [address] [id number] [address] [place] [address], [place] [address] October, [facility] [address] [id number] [address] [place] [address], [place] [address] October, [facility] [address] [id number] [address] [place] [address], [place] [address] October, [facility] [address] [id number] [address] [place] [address], [place] [address] Sep, [facility] [address] [id number] [address] [place] [address], [place] [address] Sep, [facility] [address] [id number] [address] [place] [address], [place] [address] Sep, [facility] [address] [id number] [address] [place] [address], [place] [address] Aug, [facility] [address] [id number] [address] [place] [address], [place] [address] Aug, [facility] [address] [id number] [address] [place] [address], [place] [address] Jul, [facility] [address] [id number] [address] [place] [address] 15 Jul, 2011 [facility] [address] [id number] [address] [place] [address] 10 Jul, 2011 [facility] [address] [id number] [address] [place] [address] Jul, [facility] [address] [id number] [address] [place] [address] Jul, [facility] [address] [id number] [address] [place] [address] Jun, [facility] [address] [id number] [address] [place] [address] Jun, [facility] [address] [facility] [id number] [address] [place] [address] Jun, [facility] [address] [facility] [id number] [address] [place] [address] Jun, [facility] [address] [id number] [address] [place] [address] May, [facility] [address] [facility] [id number] [address] [place] [address] May, IMMUNIZATIONS No Known Immunizations SOCIAL HISTORY [...]
--- OUTSIDE RECORDS SUMMARY | 2019-12-30 19:45 | XMS REPORT ---
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 Name Role Phone CARLYN CALHOUN Unavailable PROBLEMS Type Condition ICD9-CM Code SMC15-RH Code Onset Dates Condition S tatus SNOMED Code Problem Dysmenorrhea N94.6 16 Jul, 2016 Active 2665 96395 Problem Vaginal itching N89.8 Aug, Active 3 8885630 Problem Cervical dysplasia N87.9 10 Jul, 2016 Active 19650697 Problem Obesity E66.9 Active 722152763 Problem Anxiety and depression F41.9 Jan, Acti ve 019973955 Problem Depression F32.9 Active 652351549 Problem Cigarette nicotine dependence, uncomplicated F1 7.210 05 May, 2015 Active 672264099 Problem Intractable migraine without status migrainosus, unspecified migraine type G43.919 Active 329548543 Problem Postmenopausal symptoms N95.9 Active 806613055 Problem Reflux gastritis K29.60 Active 574 [id number] ALLERGIES No Information ENCOUNTERS Encounter Location Date Diagnosis [facility] [address] 340 [id number] [place] [address] Sep, Bronchitis J40 [facility] [address] [facility] [id number] [address] [address] Sep, [facility] [address] 340 [id number] [place] [address] Jul, Gastroenteritis K52.9 ; Chil ls R68.83 and Headache R51 [address] 340B [id number], [place] [address] Jul, Depression F32.[address] 340B [id number], [place] [address] Jul, Depression F32.9 ; Reflux ga stritis K29.60 and Postmenopausal symptoms N95.[address] 340B [id number], [place] [address] Jun, Postmenopausal symptoms N95. 9 ; Reflux gastritis K29.60 and Depression F32.9 [facility] [address] [facility] [id number] [address] [address] May, Elevated glucose R73.[address] 340B [id number], [place] [address] May, Postmenopausal symptoms N95. 9 ; Reflux gastritis K29.60 ; Depression F32.9 ; Cigarette nicotine dependence, uncomplicated F17.210 and Obesity E66.[address] 340B [id number], [place] [address] May, Depression F32.9 ; Postmenop ausal symptoms N95.9 ; Reflux gastritis K29.60 ; Cigarette nicotine dependence, uncomplicated F17.210 and Obesity E66.9 [facility] IN [facility] [address] 340 [id number] [place] [address] Jan, Acute bacterial conjunctivit is of right eye H10.[address] 340B [id number], [place] [address] Jan, Right wrist pain M25.531 and Injury of right upper extremity, initial encounter S49.91XA [facility] IN [facility] [address] 340 [id number], [place] [address] Jan, [facility] [address] 340 [id number], [place] [address] Jan, Right wrist pain M25.531 and Injury of right upper extremity, initial encounter S49.91XA [address] 340B 12099877MZSPICELAND, [place] [address] Jan, Injury of right upper extrem ity, initial encounter S49.91XA and Right wrist pain M25.531 [facility] [address] [id number] [address] Jan, Injury of right upper extrem ity, initial encounter S49.91XA and Drug screening, pre-employment Z02.1 [facility] [address] [id number] [place] [address] Dec, Bronchitis J40 ; Sore throat J02.9 and Viral upper respiratory tract infection J06.9 [facility] [place] [address] 340B [id number] [place] [address] Aug, Intractable migraine without status migrainosus, unspecified migraine type G43.919 [facility] [address] [id number] [place] [address] Jul, Viral upper respiratory trac t infection J06.9 [facility] [address] [facility] [id number] [address] [place] [address] May, [facility] [address] [facility] [id number] [address] [place] [address] May, [facility] [address] [facility] [id number] [address] [place] [address] May, [facility] [address] [facility] [id number] [address] [place] [address] Jan, [facility] [address] [facility] [id number] [address] [place] [address] Jan, [facility] [address] [facility] [id number] [address] [place] [address] Sep, [facility] [address] [facility] [id number] [address] [place] [address] Sep, [facility] [address] [facility] [id number] [address] [place] [address] October, [facility] [address] [facility] [id number] [address] [place] [address] October, [facility] [address] [id number] [address] [place] [address], [place] [address] Jul, [facility] [address] [id number] [address] [place] [address], [place] [address] Jul, [facility] [address] [id number] [address] [place] [address], [place] [address] Apr, [facility] [address] [id number] [address] [place] [address], [place] [address] Apr, [facility] [address] [id number] [address] [place] [address], [place] [address] Feb, [facility] [address] [id number] [address] [place] [address], [place] [address] Jul, [facility] [address] [id number] [address] [place] [address], [place] [address] Jul, [facility] [address] [id number] [address] [place] [address], [place] [address] Jun, [facility] [address] [id number] [address] [place] [address], [place] [address] May, [facility] [address] [id number] [address] [place] [address], [place] [address] May, [facility] [address] [id number] [address] [place] [address], [place] [address] May, [facility] [address] [id number] [address] [place] [address] Apr, [facility] [address] [id number] [address] [place] [address], [place] [address] Apr, [facility] [address] [id number] [address] [place] [address], [place] [address] Mar, [facility] [address] [id number] [address] [place] [address], [place] [address] Mar, [facility] [address] [id number] [address] [place] [address], [place] [address] 05 Mar, 2012 [facility] [address] [id number] [address] [place] [address], [place] [address] 30 Feb, 2012 [facility] [address] [id number] [address] [place] [address], [place] [address] 13 Feb, 2012 [facility] [address] [id number] [address] [place] [address], [place] [address] 10 Feb, 2012 [facility] [address] [id number] [address] [place] [address], [place] [address] 23 Jan, 2012 [facility] [address] [id number] [address] [place] [address], [place] [address] Jan, [facility] [address] [id number] [address] [place] [address], [place] [address] 16 Jan, 2012 [facility] [address] [id number] [address] [place] [address], [place] [address] Jan, [facility] [address] [id number] [address] [place] [address], [place] [address] Jan, [facility] [address] [id number] [address] [place] [address], [place] [address] Jan, [facility] [address] [id number] [address] [place] [address], [place] [address] Dec, [facility] [address] [id number] [address] [place] [address], [place] [address] Nov, [facility] [address] [id number] [address] [place] [address], [place] [address] Nov, [facility] [address] [id number] [address] [place] [address], [place] [address] Nov, [facility] [address] [id number] [address] [place] [address], [place] [address] Nov, [facility] [address] [id number] [address] [place] [address], [place] [address] Nov, [facility] [address] [id number] [address] [place] [address], [place] [address] Nov, [facility] [address] [id number] [address] [place] [address], [place] [id number] 14 Nov, 2011 [facility] [address] [id number] [address] [place] [address], [place] [address] Nov, [facility] [address] [id number] [address] [place] [address], [place] [address] Nov, [facility] [address] [id number] [address] [place] [address], [place] [address] October, [facility] [address] [id number] [address] [place] [address], [place] [address] October, [facility] [address] [id number] [address] [place] [address], [place] [address] October, [facility] [address] [id number] [address] [place] [address], [place] [address] October, [facility] [address] [id number] [address] [place] [address], [place] [address] October, [facility] [address] [id number] [address] [place] [address], [place] [address] October, [facility] [address] [id number] [address] [place] [address], [place] [address] Sep, [facility] [address] [id number] [address] [place] [address], [place] [address] Sep, [facility] [address] [id number] [address] [place] [address], [place] [address] Sep, [facility] [address] [id number] [address] [place] [address], [place] [address] Aug, [facility] [address] [id number] [address] [place] [address], [place] [address] 08 Aug, 2011 [facility] [address] [id number] [address] [address] Jul, [facility] [address] [id number] [address] [place] [id number] 15 Jul, 2011 [facility] [address] [id number] [address] [place] [id number] Jul, [facility] [address] [id number] [address] [place] [id number] Jul, [facility] [address] [id number] [address] [place] [id number] Jul, [facility] [address] [id number] [address] [place] [id number] Jun, [facility] [address] [id number] [address] [place] [id number] Jun, [facility] [address] [id number] [address] [place] [id number] Jun, [facility] [address] [id number] [address] [place] [id number] Jun, [facility] [address] [id number] [address] [place] [id number] May, [facility] [address] [id number] [address] [place] [id number] May, IMMUNIZATIONS No Known Immunizations SOCIAL HISTORY [...]
--- OUTSIDE RECORDS SUMMARY | 2019-12-30 19:45 | XMS REPORT ---
Author Author Keaton CALHOUN Organization [facility] Address [address] [place] [address] Care Team Providers [facility] Manager Name Role Phone CARLYN CALHOUN Unavailable PROBLEMS Type Condition ICD9-CM Code [id number] Code Onset Dates Condition S tatus SNOMED Code Problem Dysmenorrhea N94.6 16 Jul, 2016 Active 2665 87983 Problem Vaginal itching N89.8 Aug, Active 3 5268511 Problem Cervical dysplasia N87.9 10 Jul, 2016 Active 80678374 Problem Obesity E66.9 Active 712442156 Problem Anxiety and depression F41.9 Jan, Acti ve 142493243 Problem Depression F32.9 Active 909432954 Problem Cigarette nicotine dependence, uncomplicated F1 7.210 May, Active 525851181 Problem Intractable migraine without status migrainosus, unspecified migraine type G43.919 Active 497554964 Problem Postmenopausal symptoms N95.9 Active 962044022 Problem Reflux gastritis K29.60 Active 574 17262 ALLERGIES No Information ENCOUNTERS Encounter Location Date Diagnosis [facility] [address] [id number] [place] [address] Sep, Bronchitis J40 [facility] [address] [facility] [id number] [address] [place] [address] Sep, [facility] [address] [id number] [place] [address] Jul, Gastroenteritis K52.9 ; Chil ls R68.83 and Headache R51 [address] [id number], [place] [address] Jul, Depression F32.[address] [id number], [place] [address] Jul, Depression F32.9 ; Reflux ga stritis K29.60 and Postmenopausal symptoms N95.[address] [id number], [place] [address] Jun, Postmenopausal symptoms N95. 9 ; Reflux gastritis K29.60 and Depression F32.9 [facility] [address] [facility] [id number] [address] [place] [address] May, Elevated glucose R73.[address] [id number], [place] [address] May, Postmenopausal symptoms N95. 9 ; Reflux gastritis K29.60 ; Depression F32.9 ; Cigarette nicotine dependence, uncomplicated F17.210 and Obesity E66.[address] [id number], [place] [address] May, Depression F32.9 ; Postmenop ausal symptoms N95.9 ; Reflux gastritis K29.60 ; Cigarette nicotine dependence, uncomplicated F17.210 and Obesity E66.9 [facility] [address] [id number] [place] [address] Jan, Acute bacterial conjunctivit is of right eye H10.[address] [id number], [place] [address] Jan, Right wrist pain M25.531 and Injury of right upper extremity, initial encounter S49.91XA [facility] [address] [id number], [place] [address] Jan, [facility] [address] [id number], [place] [address] Jan, Right wrist pain M25.531 and Injury of right upper extremity, initial encounter S49.91XA [address] [id number], [place] [address] Jan, Injury of right upper extrem ity, initial encounter S49.91XA and Right wrist pain M25.531 [facility] [address] [id number] [address] Jan, Injury of right upper extrem ity, initial encounter S49.91XA and Drug screening, pre-employment Z02.1 [facility] [address] [id number] [place] [address] Dec, Bronchitis J40 ; Sore throat J02.9 and Viral upper respiratory tract infection J06.9 [facility] [place] [address] [id number] [place] [address] Aug, Intractable migraine without status migrainosus, unspecified migraine type G43.919 [facility] [address] [id number] [place] [address] Jul, Viral upper respiratory trac t infection J06.9 [facility] [address] [facility] [id number] [address] [place] [address] May, [facility] [address] [facility] [id number] [address] [place] [address] May, [facility] [address] [facility] [id number] [address] [place] [address] May, [facility] [address] [facility] [id number] [address] [place] [address] Jan, [facility] [address] [facility] [id number] [address] [place] [address] Jan, [facility] [address] [facility] [id number] [address] [place] [address] Sep, [facility] [address] [facility] [id number] [address] [place] [address] Sep, [facility] [address] [facility] [id number] [address] [place] [address] October, [facility] [address] [facility] [id number] [address] [place] [address] October, [facility] [address] [id number] [address] [place] [address], [place] [address] Jul, [facility] [address] [id number] [address] [place] [address], [place] [address] Jul, [facility] [address] [id number] [address] [place] [address], [place] [address] Apr, [facility] [address] [id number] [address] [place] [address], [place] [address] Apr, [facility] [address] [id number] [address] [place] [address], [place] [address] Feb, [facility] [address] [id number] [address] [place] [address], [place] [address] Jul, [facility] [address] [id number] [address] [place] [address], [place] [address] Jul, [facility] [address] [id number] [address] [place] [address], [place] [address] Jun, [facility] [address] [id number] [address] [place] [address], [place] [address] May, [facility] [address] [id number] [address] [place] [address], [place] [address] May, [facility] [address] [id number] [address] [place] [address], [place] [address] May, [facility] [address] [id number] [address] [place] [address] Apr, [facility] [address] [id number] [address] [place] [address], [place] [address] Apr, [facility] [address] [id number] [address] [place] [address], [place] [address] Mar, [facility] [address] [id number] [address] [place] [address], [place] [address] Mar, [facility] [address] [id number] [address] [place] [address], [place] [address] 05 Mar, 2012 [facility] [address] [id number] [address] [place] [address], [place] [address] 30 Feb, 2012 [facility] [address] [id number] [address] [place] [address], [place] [address] 13 Feb, 2012 [facility] [address] [id number] [address] [place] [address], [place] [address] 10 Feb, 2012 [facility] [address] [id number] [address] [place] [address], [place] [address] 23 Jan, 2012 [facility] [address] [id number] [address] [place] [address], [place] [address] Jan, [facility] [address] [id number] [address] [place] [address], [place] [address] 16 Jan, 2012 [facility] [address] [id number] [address] [place] [address], [place] [address] Jan, [facility] [address] [id number] [address] [place] [address], [place] [address] Jan, [facility] [address] [id number] [address] [place] [address], [place] [address] Jan, [facility] [address] [id number] [address] [place] [address], [place] [address] Dec, [facility] [address] [id number] [address] [place] [address], [place] [address] Nov, [facility] [address] [id number] [address] [place] [address], [place] [address] Nov, [facility] [address] [id number] [address] [place] [address], [place] [address] Nov, [facility] [address] [id number] [address] [place] [address], [place] [address] Nov, [facility] [address] [id number] [address] [place] [address], [place] [address] Nov, [facility] [address] [id number] [address] [place] [address], [place] [address] Nov, [facility] [address] [id number] [address] [place] [address], [place] [address] 14 Nov, 2011 [facility] [address] [id number] [address] [place] [address], [place] [address] Nov, [facility] [address] [id number] [address] [place] [address], [place] [address] Nov, [facility] [address] [id number] [address] [place] [address], [place] [address] October, [facility] [address] [id number] [address] [place] [address], [place] [address] October, [facility] [address] [id number] [address] [place] [address], [place] [address] October, [facility] [address] [id number] [address] [place] [address], [place] [address] October, [facility] [address] [id number] [address] [place] [address], [place] [address] October, [facility] [address] [id number] [address] [place] [address], [place] [address] October, [facility] [address] [id number] [address] [place] [address], [place] [address] Sep, [facility] [address] [id number] [address] [place] [address], [place] [address] Sep, [facility] [address] [id number] [address] [place] [address], [place] [address] Sep, [facility] [address] [id number] [address] [place] [address], [place] [address] Aug, [facility] [address] [id number] [address] [place] [address], [place] [address] 08 Aug, 2011 [facility] [address] [id number] [address] [address] Jul, [facility] [address] [id number] [address] [place] [address] 15 Jul, 2011 [facility] [address] [id number] [address] [place] [address] Jul, [facility] [address] [id number] [address] [place] [address] Jul, [facility] [address] [id number] [address] [place] [address] Jul, [facility] [address] [id number] [address] [place] [address] Jun, [facility] [address] [id number] [address] [place] [address] Jun, [facility] [address] [id number] [address] [place] [address] Jun, [facility] [address] [id number] [address] [place] [address] Jun, [facility] [address] [id number] [address] [place] [address] May, [facility] [address] [id number] [address] [place] [address] May, IMMUNIZATIONS No Known Immunizations SOCIAL HISTORY [...]
--- OUTSIDE RECORDS SUMMARY | 2019-12-30 19:45 | XMS REPORT ---
Author Author Keaton CALHOUN Organization [facility] Address [address] [place] [address] Care Team Providers Care Transportation Planning Engineer Name Role Phone CARLYN CALHOUN Unavailable PROBLEMS Type Condition ICD9-CM Code GOJ00-HF Code Onset Dates Condition S tatus SNOMED Code Problem Dysmenorrhea N94.6 16 Jul, 2016 Active 2665 76166 Problem Vaginal itching N89.8 Aug, Active 3 0801292 Problem Cervical dysplasia N87.9 10 Jul, 2016 Active 80885145 Problem Obesity E66.9 Active 506612482 Problem Anxiety and depression F41.9 Jan, Acti ve 898063820 Problem Depression F32.9 Active 206802262 Problem Cigarette nicotine dependence, uncomplicated F1 7.210 May, Active 595079937 Problem Intractable migraine without status migrainosus, unspecified migraine type G43.919 Active 231124294 Problem Postmenopausal symptoms N95.9 Active 477032469 Problem Reflux gastritis K29.60 Active 574 61222 ALLERGIES No Information ENCOUNTERS Encounter Location Date Diagnosis [facility] [address] [id number] [address] Sep, Bronchitis J40 [facility] [address] [facility] [id number] [address] [place] [address] Sep, [facility] [address] [id number] [place] [address] Jul, Gastroenteritis K52.9 ; Chil ls R68.83 and Headache R51 [address] [id number] [address] 20 Jul, 2019 Depression F32.[address] [id number], [place] [address] Jul, Depression F32.9 ; Reflux ga stritis K29.60 and Postmenopausal symptoms N95.[address] [id number], [place] [address] Jun, Postmenopausal symptoms N95. 9 ; Reflux gastritis K29.60 and Depression F32.9 [facility] [address] [facility] [id number] [address] [place] [address] May, Elevated glucose R73.[address] [id number], [place] [address] May, Postmenopausal symptoms N95. 9 ; Reflux gastritis K29.60 ; Depression F32.9 ; Cigarette nicotine dependence, uncomplicated F17.210 and Obesity E66.[address] [id number] [address] May, Depression F32.9 ; Postmenop ausal symptoms N95.9 ; Reflux gastritis K29.60 ; Cigarette nicotine dependence, uncomplicated F17.210 and Obesity E66.9 [facility] [address] [id number] [place] [address] Jan, Acute bacterial conjunctivit is of right eye H10.[address] [id number], [place] [address] Jan, Right wrist pain M25.531 and Injury of right upper extremity, initial encounter S49.91XA [facility] [address] [id number], [place] [address] Jan, [facility] [address] [id number], [place] [address] Jan, Right wrist pain M25.531 and Injury of right upper extremity, initial encounter S49.91XA [address] 340[address] [id number], [place] [address] Jan, Injury of right upper extrem ity, initial encounter S49.91XA and Right wrist pain M25.531 [facility] [address] [id number] [address] Jan, Injury of right upper extrem ity, initial encounter S49.91XA and Drug screening, pre-employment Z02.1 [facility] [address] [id number] [address] Dec, Bronchitis J40 ; Sore throat J02.9 and Viral upper respiratory tract infection J06.9 [facility] [place] [address] 340B [id number] [place] [address] Aug, Intractable migraine without status migrainosus, unspecified migraine type G43.919 [facility] [address] [id number] [place] [address] Jul, Viral upper respiratory trac t infection J06.9 [facility] [address] [facility] [id number] [address] [place] [address] May, [facility] [address] [facility] [id number] [address] [place] [address] May, [facility] [address] [facility] [id number] [address] [place] [address] May, [facility] [address] [facility] [id number] [address] [place] [address] Jan, [facility] [address] [facility] [id number] [address] [place] [address] Jan, [facility] [address] [facility] [id number] [address] [place] [address] Sep, [facility] [address] [facility] [id number] [address] [place] [address] Sep, [facility] [address] [facility] [id number] [address] [place] [address] October, [facility] [address] [facility] [id number] [address] [place] [address] October, [facility] [address] [id number] [address] [place] [address], [place] [address] Jul, [facility] [address] [id number] [address] [place] [address], [place] [address] Jul, [facility] [address] [id number] [address] [place] [address], [place] [address] Apr, [facility] [address] [id number] [address] [place] [address], [place] [address] Apr, [facility] [address] [id number] [address] [place] [address], [place] [address] Feb, [facility] [address] [id number] [address] [place] [address], [place] [address] Jul, [facility] [address] [id number] [address] [place] [address], [place] [address] Jul, [facility] [address] [id number] [address] [place] [address], [place] [address] Jun, [facility] [address] [id number] [address] [place] [address], [place] [address] May, [facility] [address] [id number] [address] [place] [address], [place] [address] May, [facility] [address] [id number] [address] [place] [address], [place] [address] May, [facility] [address] [id number] [address] [place] [address] Apr, [facility] [address] [id number] [address] [place] [address], [place] [address] Apr, [facility] [address] [id number] [address] [place] [address], [place] [address] Mar, [facility] [address] [id number] [address] [place] [address], [place] [address] Mar, [facility] [address] [id number] [address] [place] [address], [place] [address] 05 Mar, 2012 [facility] [address] [id number] [address] [place] [address], [place] [address] 30 Feb, 2012 [facility] [address] [id number] [address] [place] [address], [place] [address] 13 Feb, 2012 [facility] [address] [id number] [address] [place] [address], [place] [address] 10 Feb, 2012 [facility] [address] [id number] [address] [place] [address], [place] [address] 23 Jan, 2012 [facility] [address] [id number] [address] [place] [address], [place] [address] Jan, [facility] [address] [id number] [address] [place] [address], [place] [address] 16 Jan, 2012 [facility] [address] [id number] [address] [place] [address], [place] [address] Jan, [facility] [address] [id number] [address] [place] [address], [place] [address] Jan, [facility] [address] [id number] [address] [place] [address], [place] [address] Jan, [facility] [address] [id number] [address] [place] [address], [place] [address] Dec, [facility] [address] [id number] [address] [place] [address], [place] [address] Nov, [facility] [address] [id number] [address] [place] [address], [place] [address] Nov, [facility] [address] [id number] [address] [place] [address], [place] [address] Nov, [facility] [address] [id number] [address] [place] [address], [place] [address] Nov, [facility] [address] [id number] [address] [place] [address], [place] [address] Nov, [facility] [address] [id number] [address] [place] [address], [place] [address] Nov, [facility] [address] [id number] [address] [place] [address], [place] [address] 14 Nov, 2011 [facility] [address] [id number] [address] [place] [address], [place] [address] Nov, [facility] [address] [id number] [address] [place] [address], [place] [address] Nov, [facility] [address] [id number] [address] [place] [address], [place] [address] October, [facility] [address] [id number] [address] [place] [address], [place] [address] October, [facility] [address] [id number] [address] [place] [address], [place] [address] October, [facility] [address] [id number] [address] [place] [address], [place] [address] October, [facility] [address] [id number] [address] [place] [address], [place] [address] October, [facility] [address] [id number] [address] [place] [address], [place] [address] October, [facility] [address] [id number] [address] [place] [address], [place] [address] Sep, [facility] [address] [id number] [address] [place] [address], [place] [address] Sep, [facility] [address] [id number] [address] [place] [address], [place] [address] Sep, [facility] [address] [id number] [address] [place] [address], [place] [address] Aug, [facility] [address] [id number] [address] [place] [address], [place] [address] 08 Aug, 2011 [facility] [address] [id number] [place] [address] Jul, [facility] [address] [id number] [address] [place] [address] Jul, [facility] [address] [id number] [address] [place] [address] Jul, [facility] [address] [id number] [address] [place] [address] Jul, [facility] [address] [id number] [address] [place] [address] Jul, [facility] [address] [id number] [address] [place] [address] Jun, [facility] [address] [id number] [address] [place] [address] Jun, [facility] [address] [id number] [address] [place] [address] Jun, [facility] [address] [id number] [address] [place] [address] Jun, [facility] [address] [id number] [address] [place] [address] May, [facility] [address] [id number] [address] [place] [address] May, IMMUNIZATIONS No Known Immunizations SOCIAL HISTORY Never Assessed REASON FOR VISIT PLAN OF CARE VITAL SIGNS Height 66 in 2011-11-18 Weight 147.9 lbs 2011-11-18 Temperature 97.3 degrees Fahrenheit 2011-11-18 Heart Rate 90 bpm 2011-11-18 Respiratory Rate 16 2011-11-18 Blood pressure systolic 114 mmHg 2011-11-18 Blood pressure diastolic 70 mmHg 2011-11-18 MEDICATIONS No Known Medications RESULTS No Results PROCEDURES Procedure Date Ordered Result Body Site URINE-NO MICRO November 18, 2011 INSTRUCTIONS MEDICATIONS ADMINISTERED No Known Medications [...]
--- OUTSIDE RECORDS SUMMARY | 2019-12-30 19:46 | XMS REPORT ---
Author Author Saira Keaton Doctor Organization [facility] Address Unknown Phone Unavailable Care Team Providers Care Entry Level Management Name Role Phone Migration, Doctor Unavailable Unavailable PROBLEMS Type Condition ICD9-CM Code TBO67-DN Code Onset Dates Condition S tatus SNOMED Code Problem Screening for malignant neoplasm of the cervix V76.2 Active 903013351 Problem Counseling on other sexually transmitted diseases V65.45 Active 537626559 Problem Screening examination for venereal disease V74.5 Active 753985588 Problem General counseling for initiation of oth er contraceptive measures V25.02 Active 756391851453809 Problem Encounter for long-term (current) use of other medications V58.69 Active 286258614 Problem Cough 786.2 Active 97459099 Problem Pain in thoracic spine 724.1 Active 062781245 Problem Esophageal reflux 530.81 Active 24 7988989 Problem Hypopotassemia 276.8 Active 85456 004 Problem Papanicolaou smear of cervix with low grade squamous intraepithelial lesion (LGSIL) 795.03 Active 218796355 Problem Intractable migraine without status migrainosus, unspecified migraine type G43.919 Active 572567173 Problem Routine follow-up V24.2 A ctive 551970124 Problem Mild hyperemesis gravidarum, unspecified as to episode of care 643.00 Active 11413686 Problem Depressive disorder, not elsewhere classified 311 Active 47403903 Problem Posttraumatic stress disorder 309.81 Active 86743067 Problem Anxiety state, unspecified 300.00 Act idaila [id number] ALLERGIES No Information ENCOUNTERS Encounter Location Date Diagnosis [address] [address] Aug, Intractable migraine without status migr ainosus, unspecified migraine type G43.919 [facility] [address] [facility] [id number] [address] [place] [address] Sep, [facility] [address] [facility] [id number] [address] [place] [address] Sep, [facility] [address] [id number] [address] [place] [address], [place] [address] October, [facility] [address] [id number] [address] [place] [address], [place] [address] October, [facility] [address] [id number] [address] [place] [address], [place] [address] Jul, [facility] [address] [id number] [address] [place] [address], [place] [address] Jul, [facility] [address] [id number] [address] [place] [address], [place] [address] Apr, [facility] [address] [id number] [address] [place] [address], [place] [address] Apr, [facility] [address] [id number] [address] [place] [address], [place] [address] Feb, [facility] [address] [id number] [address] [place] [address], [place] [address] Jul, [facility] [address] [id number] [address] [place] [address], [place] [address] Jul, [facility] [address] [id number] [address] [place] [address], [place] [address] Jun, [facility] [address] [id number] [address] [place] [address], [place] [address] May, [facility] [address] [id number] [address] [place] [address], [place] [address] May, [facility] [address] [id number] [address] [place] [address], [place] [address] May, [facility] [address] [id number] [address] [place] [address], [place] [address] Apr, [facility] [address] [id number] [address] [place] [address], [place] [address] Apr, [facility] [address] [id number] [address] [place] [address], [place] [address] Mar, [facility] [address] [id number] [address] [place] [address], [place] [address] Mar, [facility] [address] [id number] [address] [place] [address], [place] [address] Mar, [facility] [address] [id number] [address] [place] [address], [place] [address] 30 Feb, 2012 [facility] [address] [id number] [address] [place] [address], [place] [address] Feb, [facility] [address] [id number] [address] [place] [address], [place] [address] Feb, [facility] [address] [id number] [address] [place] [address], [place] [address] Jan, [facility] [address] [id number] [address] [place] [address], [place] [address] Jan, [facility] [address] [id number] [address] [place] [address], [place] [address] Jan, [facility] [address] [id number] [address] [place] [address], [place] [address] Jan, [facility] [address] [id number] [address] [place] [address], [place] [address] Jan, [facility] [address] [id number] [address] [place] [address], [place] [address] Jan, [facility] [address] [id number] [address] [place] [address], [place] [address] Dec, [facility] [address] [id number] [address] [place] [address], [place] [address] Nov, [facility] [address] [id number] [address] [place] [address], [place] [address] Nov, [facility] [address] [id number] [address] [place] [address], [place] [address] Nov, [facility] [address] [id number] [address] [place] [address], [place] [address] Nov, [facility] [address] [id number] [address] [place] [address], [place] [address] Nov, [facility] [address] [id number] [address] [place] [address], [place] [address] Nov, [facility] [address] [id number] [address] [place] [address], [place] [address] Nov, [facility] [address] [id number] [address] [place] [address], [place] [address] Nov, [facility] [address] [id number] [address] [place] [address], [place] [address] Nov, [facility] [address] [id number] [address] [place] [address], [place] [address] October, [facility] [address] [id number] [address] [place] [address], [place] [address] October, [facility] [address] [id number] [address] [place] [address], [place] [address] October, [facility] [address] [id number] [address] [place] [address], [place] [address] October, [facility] [address] [id number] [address] [place] [address], [place] [address] October, [facility] [address] [id number] [address] [place] [address], [place] [address] October, [facility] [address] [id number] [address] [place] [address], [place] [address] Sep, [facility] [address] [id number] [address] [place] [address], [place] [address] Sep, [facility] [address] [id number] [address] [place] [address], [place] [address] Sep, [facility] [address] [id number] [address] [place] [address] Aug, [facility] [address] [id number] [address] [place] [address] Aug, [facility] [address] [id number] [address] [place] [address] Jul, [facility] [address] [id number] [address] [place] [address] Jul, [facility] [address] [id number] [address] [place] [address] Jul, [facility] [address] [id number] [address] [place] [address] Jul, [facility] [address] [id number] [address] [place] [address] Jul, [facility] [address] [id number] [address] [place] [address] Jun, [facility] [address] [id number] [address] [place] [address] Jun, [facility] [address] [id number] [address] [place] [phone] Jun, [facility] [address] [id number] [address] [place] [id number] Jun, [facility] [address] [id number] [address] [place] [phone] May, [facility] [address] [id number] [address] [place] [id number] May, IMMUNIZATIONS No Known Immunizations SOCIAL HISTORY Never Assessed REASON FOR VISIT [facility] [place] VITAL SIGNS MEDICATIONS No Known Medications RESULTS No Results PROCEDURES No Known procedures INSTRUCTIONS MEDICATIONS ADMINISTERED No Known Medications MEDICAL (GENERAL) HISTORY Type Description Date Medical History anxiety & depression Medical History cigarette dependence Medical History cervical dysplasia Medical History dysmenorrhea Medical History calculus of gallbladder with chronic cholecystitis without obstruction Surgical History hysterectomy Surgical History wisdom teeth removed Surgical History oral surgery to remove all teeth Surgical History cholecystectomy Hospitalization History surgeries Hospitalization History child
--- OUTSIDE RECORDS SUMMARY | 2019-12-30 19:46 | XMS REPORT ---
Author Author Saira Keaton Doctor Organization [facility] Address Unknown Phone Unavailable Care Team Providers Care Steward/Stewardess Night Name Role Phone Migration, Doctor Unavailable Unavailable PROBLEMS Type Condition ICD9-CM Code [id number] Code Onset Dates Condition S tatus SNOMED Code Problem Screening for malignant neoplasm of the cervix V76.2 Active 254662046 Problem Counseling on other sexually transmitted diseases V65.45 Active 840289442 Problem Screening examination for venereal disease V74.5 Active 167890741 Problem General counseling for initiation of oth er contraceptive measures V25.02 Active 138876741560680 Problem Encounter for long-term (current) use of other medications V58.69 Active 441083738 Problem Cough 786.2 Active 04359013 Problem Pain in thoracic spine 724.1 Active 140129889 Problem Esophageal reflux 530.81 Active 24 4658442 Problem Hypopotassemia 276.8 Active 50665 004 Problem Papanicolaou smear of cervix with low grade squamous intraepithelial lesion (LGSIL) 795.03 Active 299284339 Problem Intractable migraine without status migrainosus, unspecified migraine type G43.919 Active 818792754 Problem Routine follow-up V24.2 A ctive 834861379 Problem Mild hyperemesis gravidarum, unspecified as to episode of care 643.00 Active 81037079 Problem Depressive disorder, not elsewhere classified 311 Active 26853062 Problem Posttraumatic stress disorder 309.81 Active 06989455 Problem Anxiety state, unspecified 300.00 Act idalia [id number] ALLERGIES No Information ENCOUNTERS Encounter Location Date Diagnosis [address] [address] Aug, Intractable migraine without status migr ainosus, unspecified migraine type G43.919 [facility] [address] [facility] [id number] [address] [place] [address] Sep, [facility] [address] [facility] [id number] [address] [place] [address] Sep, [facility] [address] [id number] [address] [place] [address], [place] [address] October, [facility] [address] [id number] [address] [place] [address], [place] [address] October, [facility] [address] [id number] [address] [place] [address], [place] [address] Jul, [facility] [address] [id number] [address] [place] [address], [place] [address] Jul, [facility] [address] [id number] [address] [place] [address], [place] [address] Apr, [facility] [address] [id number] [address] [place] [address], [place] [address] Apr, [facility] [address] [id number] [address] [place] [address], [place] [address] Feb, [facility] [address] [id number] [address] [place] [address], [place] [address] Jul, [facility] [address] [id number] [address] [place] [address], [place] [address] Jul, [facility] [address] [id number] [address] [place] [address], [place] [address] Jun, [facility] [address] [id number] [address] [place] [address], [place] [address] May, [facility] [address] [id number] [address] [place] [address], [place] [address] May, [facility] [address] [id number] [address] [place] [address], [place] [address] May, [facility] [address] [id number] [address] [place] [address], [place] [address] Apr, [facility] [address] [id number] [address] [place] [address], [place] [address] Apr, [facility] [address] [id number] [address] [place] [address], [place] [address] Mar, [facility] [address] [id number] [address] [place] [address], [place] [address] Mar, [facility] [address] [id number] [address] [place] [address], [place] [address] Mar, [facility] [address] [id number] [address] [place] [address], [place] [address] 30 Feb, 2012 [facility] [address] [id number] [address] [place] [address], [place] [address] Feb, [facility] [address] [id number] [address] [place] [address], [place] [address] Feb, [facility] [address] [id number] [address] [place] [address], [place] [address] Jan, [facility] [address] [id number] [address] [place] [address], [place] [address] Jan, [facility] [address] [id number] [address] [place] [address], [place] [address] Jan, [facility] [address] [id number] [address] [place] [address], [place] [address] Jan, [facility] [address] [id number] [address] [place] [address], [place] [address] Jan, [facility] [address] [id number] [address] [place] [address], [place] [address] Jan, [facility] [address] [id number] [address] [place] [address], [place] [address] Dec, [facility] [address] [id number] [address] [place] [address], [place] [address] Nov, [facility] [address] [id number] [address] [place] [address], [place] [address] Nov, [facility] [address] [id number] [address] [place] [address], [place] [address] Nov, [facility] [address] [id number] [address] [place] [address], [place] [address] Nov, [facility] [address] [id number] [address] [place] [address], [place] [address] Nov, [facility] [address] [id number] [address] [place] [address], [place] [address] Nov, [facility] [address] [id number] [address] [place] [address], [place] [address] Nov, [facility] [address] [id number] [address] [place] [address], [place] [address] Nov, [facility] [address] [id number] [address] [place] [address], [place] [address] Nov, [facility] [address] [id number] [address] [place] [address], [place] [address] October, [facility] [address] [id number] [address] [place] [address], [place] [address] October, [facility] [address] [id number] [address] [place] [address], [place] [address] October, [facility] [address] [id number] [address] [place] [address], [place] [address] October, [facility] [address] [id number] [address] [place] [address], [place] [address] October, [facility] [address] [id number] [address] [place] [address], [place] [address] October, [facility] [address] [id number] [address] [place] [address], [place] [address] Sep, [facility] [address] [id number] [address] [place] [address], [place] [address] Sep, [facility] [address] [id number] [address] [place] [address], [place] [address] Sep, [facility] [address] [id number] [address] [place] [address] Aug, [facility] [address] [id number] [address] [place] [address] Aug, [facility] [address] [id number] [address] [place] [address] Jul, [facility] [address] [id number] [address] [place] [address] Jul, [facility] [address] [id number] [address] [place] [address] Jul, [facility] [address] [id number] [address] [place] [address] Jul, [facility] [address] [id number] [address] [place] [address] Jul, [facility] [address] [id number] [address] [place] [address] Jun, [facility] [address] [id number] [address] [place] [address] Jun, [facility] [address] [id number] [address] [place] [address] Jun, [facility] [address] [id number] [address] [place] [address] Jun, [facility] [address] [id number] [address] [place] [address] May, [facility] [address] [id number] [address] [place] [address] May, IMMUNIZATIONS No Known Immunizations SOCIAL HISTORY Never Assessed REASON FOR VISIT EMR-[facility] PLAN OF CARE VITAL SIGNS MEDICATIONS No [...]
--- OUTSIDE RECORDS SUMMARY | 2019-12-30 19:46 | XMS REPORT ---
Author Author Saira Keaton Doctor Organization [facility] Address Unknown Phone Unavailable Care Team Providers Care Chief Deputy Sheriff Name Role Phone Migration, Doctor Unavailable Unavailable PROBLEMS Type Condition ICD9-CM Code CQC17-JM Code Onset Dates Condition S tatus SNOMED Code Problem Dysmenorrhea N94.6 16 Jul, 2016 Active 2665 34765 Problem Vaginal itching N89.8 Aug, Active 3 9211338 Problem Cervical dysplasia N87.9 10 Jul, 2016 Active 99731255 Problem Obesity E66.9 Active 798526668 Problem Anxiety and depression F41.9 Jan, Acti ve 703933300 Problem Depression F32.9 Active 745083739 Problem Cigarette nicotine dependence, uncomplicated F1 7.210 May, Active 910172461 Problem Intractable migraine without status migrainosus, unspecified migraine type G43.919 Active 437245302 Problem Postmenopausal symptoms N95.9 Active 877732833 Problem Reflux gastritis K29.60 Active 574 12686 ALLERGIES No Information ENCOUNTERS Encounter Location Date Diagnosis [facility] [address] [id number] [address] Sep, [address]itis [address] [facility] [address] [facility] [id number] [address] [address] Sep, [facility] [address] [id number], [place] [address] Jul, Gastroenteritis K52.9 ; Chil ls R68.83 and Headache R51 [address] [id number], [place] [address] Jul, Depression F32.[address] [id number], [place] [address] Jul, Depression F32.9 ; Reflux ga stritis K29.60 and Postmenopausal symptoms N95.[address] [id number] [place] [address] Jun, Postmenopausal symptoms N95. 9 ; Reflux gastritis K29.[address] [facility] [address] [facility] [id number] [address] [address] May, Elevated glucose R73.[address] [id number], [place] [address] May, Postmenopausal symptoms N95. 9 ; Reflux gastritis K29.60 ; Depression F32.9 ; Cigarette nicotine dependence, uncomplicated F17.210 and Obesity E66.[address] [id number], [place] [address] May, Depression F32.9 ; Postmenop ausal symptoms N95.9 ; Reflux gastritis K29.60 ; Cigarette nicotine dependence, uncomplicated F17.210 and Obesity E66.9 [facility] [address] [id number], [place] [address] Jan, Acute bacterial conjunctivit is of right eye H10.[address] [id number], [place] [address] Jan, Right wrist pain M25.531 and Injury of right upper extremity, initial encounter S49.91XA [facility] [address] [id number], [place] [address] Jan, [facility] [address] [id number], [place] [address] Jan, Right wrist pain M25.531 and Injury of right upper extremity, initial encounter S49.91XA [address] 340[address] [id number], [place] [address] Jan, Injury of right upper extrem ity, initial encounter S49.91XA and Right wrist pain M25.531 [facility] [address] [id number], [place] [address] Jan, Injury of right upper extrem ity, initial encounter S49.91XA and Drug screening, pre-employment Z02.1 [facility] [address] [id number] [place] [address] Dec, Bronchitis J40 ; Sore throat J02.9 and Viral upper respiratory tract infection J06.9 [facility] [address] 340B [id number] [place] [address] Aug, Intractable migraine without status migrainosus, unspecified migraine type G43.919 [facility] [address] [id number] [address] Jul, Viral upper respiratory trac t infection J06.9 [facility] [address] [facility] [id number] [address] [place] [address] May, [facility] [address] [facility] [id number] [address] [place] [address] May, [facility] [address] [facility] [id number] [address] [place] [address] May, [facility] [address] [facility] [id number] [address] [place] [address] Jan, [facility] [address] [facility] [id number] [address] [place] [address] Jan, [facility] [address] [facility] [id number] [address] [place] [address] Sep, [facility] [address] [id number] [address] [place] [address] Sep, [facility] [address] [facility] [id number] [address] [place] [address] October, [facility] [address] [facility] [id number] [address] [place] [address] October, [facility] [address] [facility] [id number] [address] [place] [address] Jul, [facility] [address] [id number] [address] [place] [address], [place] [address] Jul, [facility] [address] [id number] [address] [place] [address], [place] [address] Apr, [facility] [address] [id number] [address] [place] [address], [place] [address] Apr, [facility] [address] [id number] [address] [place] [address], [place] [address] Feb, [facility] [address] [id number] [address] [place] [address], [place] [address] Jul, [facility] [address] [id number] [address] [place] [address], [place] [address] Jul, [facility] [address] [id number] [address] [place] [address], [place] [address] Jun, [facility] [address] [id number] [address] [place] [address], [place] [address] May, [facility] [address] [id number] [address] [place] [address], [place] [address] May, [facility] [address] [id number] [address] [place] [address], [place] [address] May, [facility] [address] [id number] [address] [place] [address], [place] [address] Apr, [facility] [address] [id number] [address] [place] [address], [place] [address] Apr, [facility] [address] [id number] [address] [place] [address], [place] [address] Mar, [facility] [address] [id number] [address] [place] [address], [place] [address] Mar, [facility] [address] [id number] [address] [place] [address], [place] [address] Mar, [facility] [address] [id number] [address] [place] [address], [place] [address] 30 Feb, 2012 [facility] [address] [id number] [address] [place] [address], [place] [address] 13 Feb, 2012 [facility] [address] [id number] [address] [place] [address], [place] [address] 10 Feb, 2012 [facility] [address] [id number] [address] [place] [address], [place] [address] 23 Jan, 2012 [facility] [address] [id number] [address] [place] [address], [place] [address] Jan, [facility] [address] [id number] [address] [place] [address], [place] [address] 16 Jan, 2012 [facility] [address] [id number] [address] [place] [address], [place] [address] Jan, [facility] [address] [id number] [address] [place] [address], [place] [address] Jan, [facility] [address] [id number] [address] [place] [address], [place] [address] Jan, [facility] [address] [id number] [address] [place] [address], [place] [address] Dec, [facility] [address] [id number] [address] [place] [address], [place] [address] Nov, [facility] [address] [id number] [address] [place] [address], [place] [address] Nov, [facility] [address] [id number] [address] [place] [address], [place] [address] Nov, [facility] [address] [id number] [address] [place] [address], [place] [address] Nov, [facility] [address] [id number] [address] [place] [address], [place] [address] Nov, [facility] [address] [id number] [address] [place] [address], [place] [address] Nov, [facility] [address] [id number] [address] [place] [address], [place] [address] Nov, [facility] [address] [id number] [address] [place] [address], [place] [address] Nov, [facility] [address] [id number] [address] [place] [address], [place] [address] Nov, [facility] [address] [id number] [address] [place] [address], [place] [address] October, [facility] [address] [id number] [address] [place] [address], [place] [address] October, [facility] [address] [id number] [address] [place] [address], [place] [address] October, [facility] [address] [id number] [address] [place] [address], [place] [address] October, [facility] [address] [id number] [address] [place] [address], [place] [address] October, [facility] [address] [id number] [address] [place] [address], [place] [address] October, [facility] [address] [id number] [address] [place] [address], [place] [address] Sep, [facility] [address] [id number] [address] [place] [address], [place] [address] Sep, [facility] [address] [id number] [address] [place] [address], [place] [address] Sep, [facility] [address] [id number] [address] [place] [address], [place] [address] Aug, [facility] [address] [id number] [address] [place] [address], [place] [address] Aug, [facility] [address] [id number] [address] [place] [address], [place] [address] Jul, [facility] [address] [id number] [address] [place] [address] 15 Jul, 2011 [facility] [address] [id number] [address] [place] [address] 10 Jul, 2011 [facility] [address] [id number] [address] [place] [address] Jul, [facility] [address] [id number] [address] [place] [address] Jul, [facility] [address] [id number] [address] [place] [address] Jun, [facility] [address] [id number] [address] [place] [address] Jun, [facility] [address] [facility] [id number] [address] [place] [id number] Jun, [facility] [address] [facility] [id number] [address] [place] [id number] Jun, [facility] [address] [id number] [address] [place] [id number] May, [facility] [address] [facility] [id number] [address] [place] [id number] May, IMMUNIZATIONS No Known Immunizations SOCIAL HISTORY [...]
--- OUTSIDE RECORDS SUMMARY | 2019-12-30 19:46 | XMS REPORT ---
Author Author Keaton Colin Organization [facility] Address [address] [place] [address] Care Team Providers Care Corporate Responsibility Officer Name Role Phone IRASEMA Colin Unavailable PROBLEMS Type Condition ICD9-CM Code FHU80-MG Code Onset Dates Condition S tatus SNOMED Code Problem Dysmenorrhea N94.6 16 Jul, 2016 Active 2665 74493 Problem Vaginal itching N89.8 Aug, Active 3 2415617 Problem Cervical dysplasia N87.9 10 Jul, 2016 Active 43093086 Problem Obesity E66.9 Active 247576455 Problem Anxiety and depression F41.9 Jan, Acti ve 695903203 Problem Depression F32.9 Active 949295116 Problem Cigarette nicotine dependence, uncomplicated F1 7.210 May, Active 061557073 Problem Intractable migraine without status migrainosus, unspecified migraine type G43.919 Active 328849328 Problem Postmenopausal symptoms N95.9 Active 942728714 Problem Reflux gastritis K29.60 Active 574 18758 ALLERGIES Substance Reaction Event Type Date Status Cinnamon swelling Drug Allergy Aug, Active Amoxicillin Unknown Drug Allergy Aug, Active nutmeg angioedema Non Drug Allergy Aug, Active ENCOUNTERS Encounter Location Date Diagnosis [facility] [address] [place] [address] Jul, Gastroenteritis K52.9 ; Chil ls R68.83 and Headache R51 [address] [place] [address] Jul, Depression F32.[address] [place] [address] Jul, Depression F32.9 ; Reflux ga stritis K29.60 and Postmenopausal symptoms N95.[address] [place] [address] Jun, Postmenopausal symptoms N95. 9 ; Reflux gastritis K29.60 and Depression F32.9 [facility] [address] [id number] [place] [address] May, Elevated glucose R73.[address] [place] [address] May, Postmenopausal symptoms N95. 9 ; Reflux gastritis K29.60 ; Depression F32.9 ; Cigarette nicotine dependence, uncomplicated F17.210 and Obesity E66.[address] [place] [address] May, Depression F32.9 ; Postmenop ausal symptoms N95.9 ; Reflux gastritis K29.60 ; Cigarette nicotine dependence, uncomplicated F17.210 and Obesity E66.9 [facility] [address] [place] [address] Jan, Acute bacterial conjunctivit is of right eye H10.[address] [place] [address] Jan, Right wrist pain M25.531 and Injury of right upper extremity, initial encounter S49.91XA [facility] [address] [place] [address] Jan, [facility] [address] [place] [address] Jan, Right wrist pain M25.531 and Injury of right upper extremity, initial encounter S49.91XA [address] [place] [address] Jan, Injury of right upper extrem ity, initial encounter S49.91XA and Right wrist pain M25.531 [facility] [address] [place] [address] Jan, Injury of right upper extrem ity, initial encounter S49.91XA and Drug screening, pre-employment Z02.1 [facility] [address] [place] [address] Dec, Bronchitis J40 ; Sore throat J02.9 and Viral upper respiratory tract infection J06.9 [facility] [address] [place] [address] Aug, Intractable migraine without status migrainosus, unspecified migraine type G43.919 [facility] [address] [place] [address] Jul, Viral upper respiratory trac t infection J06.9 [facility] [address] [place] [address] May, [facility] [address] [place] [address] May, [facility] [address] [address] May, [facility] [address] [place] [address] Jan, [facility] [address] [address] Jan, [facility] [address] [place] [address] Sep, [facility] [address] [place] [address] Sep, [facility] [id number] [place] [address] October, [facility] [address] [place] [address] October, [facility] [address] [place] [address] Jul, [facility] [address] [place] [address] Jul, [facility] [address] [id number] [place] [address] 06 Apr, 2013 [facility] [address] [id number] [place] [address] Apr, [facility] [address] [id number] [place] [address] 26 Feb, 2013 [facility] [id number] [place] [address] 08 Jul, 2012 [facility] [id number] [place] [address] Jul, [facility] [address] [id number] [place] [address] Jun, [facility] [id number] [place] [address] May, [facility] [id number] [place] [address] May, [facility] [id number] [place] [address] May, [facility] [id number] [place] [address] Apr, [facility] [id number] [place] [address] Apr, [facility] [id number] [place] [address] Mar, [facility] [id number] [place] [address] 08 Mar, 2012 [facility] [address] [id number] [place] [address] 05 Mar, 2012 [facility] [id number] [place] [address] 30 Feb, 2012 [facility] [address] [id number] [place] [address] 13 Feb, 2012 [facility] [id number] [place] [address] Feb, [facility] [address] [id number] [place] [address] Jan, [facility] [address] [id number] [facility] [address] Jan, [facility] [address] [id number] [place] [address] Jan, [facility] [address] [id number] [facility] [address] Jan, [facility] [address] [facility] [id number] [place] [address] Jan, [facility] [address] [id number] [place] [address] Jan, [facility] [address] [id number] [place] [address] Dec, [facility] [address] [id number] [place] [address] Nov, [facility] [address] [id number] [place] [address] Nov, [facility] [address] [id number] [place] [address] Nov, [facility] [address] [id number] [place] [address] Nov, [facility] [address] [id number] [place] [address] Nov, [facility] [address] [id number] [place] [address] Nov, [facility] [address] [id number] [place] [address] 14 Nov, 2011 [facility] [address] [id number] [place] [address] Nov, [facility] [address] [id number] [place] [address] Nov, [facility] [address] [id number] [place] [address] October, [facility] [address] [facility] [id number] [facility] [address] October, [facility] [address] [id number] [place] [address] October, [facility] [address] [id number] [place] [address] October, [facility] [address] [id number] [place] [address] October, [facility] [address] [id number] [place] [address] October, [facility] [address] [id number] [place] [address] Sep, [facility] [address] [id number] [place] [address] Sep, [facility] [address] [id number] [place] [address] Sep, [facility] [address] [id number] [place] [address] Aug, [facility] [address] [id number] [place] [address] Aug, [facility] [address] [id number] [place] [address] Jul, [facility] [address] [id number] [place] [address] 15 Jul, 2011 [facility] [address] [id number] [place] [address] Jul, [facility] [address] [id number] [place] [address] Jul, [facility] [address] [id number] [place] [address] Jul, [facility] [address] [id number] [place] [address] Jun, [facility] [address] [id number] [place] [address] Jun, [place] [id number] [place] [address] Jun, [facility] [id number] [place] [address] Jun, [place] [address] [address] May, [place] [address] [address] May, IMMUNIZATIONS Vaccine Route Administration Date Status TORADOL (IM) 60 MG/2ML (UP TO 15 MG) IM Intramuscular September 08, 2018 Administered SOCIAL HISTORY Never Assessed REASON FOR VISIT Migraine, c/o migraine x2 weeks, head is tender to the touch, did not have a inj ury, gallbladder surgery in 02/2018 about a month after surgery has to have a BM after meals, irregular mucus type BM, abdominal & back pain PLAN OF CARE Activity Details Follow Up prn with me. Follow up with Dr Christie if not improving Reason: VITAL SIGNS Height 66 in 2018-09-08 Weight 177 lbs 2018-09-08 Temperature 99.4 degrees Fahrenheit 2018-09-08 BMI 28.57 kg/m2 2018-09-08 Blood pressure systolic 140 mmHg 2018-09-08 Blood pressure diastolic 76 mmHg 2018-09-08 MEDICATIONS Medication Instructions Dosage Frequency Start Date End Date Duration S tatus Imitrex 50 mg Orally as directed 1 tablet PO X 1, May repeat dose X 1 after 2h 30 days Active Estradiol 0.5 MG Orally daily 1 tablet 24h 30 day(s) Active Ibuprofen 200 MG Orally Three times a day 1 tablet with food or milk as needed 8h Active Omeprazole 20 MG Orally Once a day 1 capsule 24h 30 day(s) Active Effexor XR 75 MG Orally Once a day 1 capsule with food 24h 30 day(s) Active RESULTS No Results PROCEDURES Procedure Date Ordered Result Body Site THER/PROPH/DIAG INJ, SC/IM September 08, 2018 TORADOL (IM) 60 MG/2ML (UP TO 15 MG) September 08, 2018 INSTRUCTIONS MEDICATIONS ADMINISTERED No Known Medications MEDICAL [...]
--- OUTSIDE RECORDS SUMMARY | 2019-12-30 19:46 | XMS REPORT ---
Author Author Keaton CALHOUN Organization [facility] Address [address] [place] [address] Care Team Providers Care Finance Clerk Name Role Phone CARLYN CALHOUN Unavailable PROBLEMS Type Condition ICD9-CM Code RQA94-DX Code Onset Dates Condition S tatus SNOMED Code Problem Screening for malignant neoplasm of the cervix V76.2 Active 694572332 Problem Counseling on other sexually transmitted diseases V65.45 Active 840648156 Problem Screening examination for venereal disease V74.5 Active 195223940 Problem General counseling for initiation of oth er contraceptive measures V25.02 Active 726686074976702 Problem Encounter for long-term (current) use of other medications V58.69 Active 879177192 Problem Cough 786.2 Active 02666320 Problem Pain in thoracic spine 724.1 Active 507114545 Problem Esophageal reflux 530.81 Active 24 2895201 Problem Hypopotassemia 276.8 Active 63197 004 Problem Papanicolaou smear of cervix with low grade squamous intraepithelial lesion (LGSIL) 795.03 Active 755293994 Problem Intractable migraine without status migrainosus, unspecified migraine type G43.919 Active 170008151 Problem Routine follow-up V24.2 A ctive 075099016 Problem Mild hyperemesis gravidarum, unspecified as to episode of care 643.00 Active 22359691 Problem Depressive disorder, not elsewhere classified 311 Active 95162350 Problem Posttraumatic stress disorder 309.81 Active 65584633 Problem Anxiety state, unspecified 300.00 Act idalia [id number] ALLERGIES No Information ENCOUNTERS Encounter Location Date Diagnosis [address] [address] Aug, Intractable migraine without status migr ainosus, unspecified migraine type G43.919 [facility] [address] [facility] [id number] [place] [address] Sep, [facility] [address] [id number] [address] [place] [address], [place] [address] Sep, [facility] [address] [id number] [address] [place] [address], [place] [address] October, [facility] [address] [id number] [address] [place] [address], [place] [address] October, [facility] [address] [id number] [address] [place] [address], [place] [address] Jul, [facility] [address] [id number] [address] [place] [address], [place] [address] Jul, [facility] [address] [id number] [address] [place] [address], [place] [address] Apr, [facility] [address] [id number] [address] [place] [address], [place] [address] Apr, [facility] [address] [id number] [address] [place] [address], [place] [address] Feb, [facility] [address] [id number] [address] [place] [address], [place] [address] Jul, [facility] [address] [id number] [address] [place] [address], [place] [address] Jul, [facility] [address] [id number] [address] [place] [address], [place] [address] Jun, [facility] [address] [id number] [address] [place] [address], [place] [address] May, [facility] [address] [id number] [address] [place] [address], [place] [address] May, [facility] [address] [id number] [address] [place] [address], [place] [address] May, [facility] [address] [id number] [address] [place] [address], [place] [address] Apr, [facility] [address] [id number] [address] [place] [address], [place] [address] Apr, [facility] [address] [id number] [address] [place] [address], [place] [address] Mar, [facility] [address] [id number] [address] [place] [address], [place] [address] Mar, [facility] [address] [id number] [address] [place] [address], [place] [address] Mar, [facility] [address] [id number] [address] [place] [address], [place] [address] 30 Feb, 2012 [facility] [address] [id number] [address] [place] [address], [place] [address] Feb, [facility] [address] [id number] [address] [place] [address], [place] [address] Feb, [facility] [address] [id number] [address] [place] [address], [place] [address] Jan, [facility] [address] [id number] [address] [place] [address], [place] [address] Jan, [facility] [address] [id number] [address] [place] [address], [place] [address] Jan, [facility] [address] [id number] [address] [place] [address], [place] [address] Jan, [facility] [address] [id number] [address] [place] [address], [place] [address] Jan, [facility] [address] [id number] [address] [place] [address], [place] [address] Jan, [facility] [address] [id number] [address] [place] [address], [place] [address] Dec, [facility] [address] [id number] [address] [place] [address], [place] [address] Nov, [facility] [address] [id number] [address] [place] [address], [place] [address] Nov, [facility] [address] [id number] [address] [place] [address], [place] [address] Nov, [facility] [address] [id number] [address] [place] [address], [place] [address] Nov, [facility] [address] [id number] [address] [place] [address], [place] [address] Nov, [facility] [address] [id number] [address] [place] [address], [place] [address] Nov, [facility] [address] [id number] [address] [place] [address], [place] [address] 14 Nov, 2011 [facility] [address] [id number] [address] [place] [address], [place] [address] Nov, [facility] [address] [id number] [address] [place] [address], [place] [address] Nov, [facility] [address] [id number] [address] [place] [address], [place] [address] October, [facility] [address] [id number] [address] [place] [address], [place] [address] October, [facility] [address] [id number] [address] [place] [address], [place] [address] October, [facility] [address] [id number] [address] [place] [address], [place] [address] October, [facility] [address] [id number] [address] [place] [address], [place] [address] October, [facility] [address] [id number] [address] [place] [address], [place] [address] October, [facility] [address] [id number] [address] [place] [address], [place] [address] Sep, [facility] [address] [id number] [address] [place] [address], [place] [address] Sep, [facility] [address] [id number] [place] [address] Sep, [facility] [address] [id number] [address] [place] [address] Aug, [facility] [address] [id number] [address] [place] [address] Aug, [facility] [address] [id number] [address] [place] [address] Jul, [facility] [address] [id number] [address] [place] [address] Jul, [facility] [address] [id number] [address] [place] [address] Jul, [facility] [address] [id number] [address] [place] [address] Jul, [facility] [address] [id number] [address] [place] [address] Jul, [facility] [address] [id number] [address] [place] [address] Jun, [facility] [address] [id number] [address] [place] [address] Jun, [facility] [address] [id number] [address] [place] [address] Jun, [facility] [address] [id number] [address] [place] [address] Jun, [facility] [address] [id number] [address] [place] [address] May, [facility] [address] [id number] [address] [place] [address] May, IMMUNIZATIONS No Known Immunizations SOCIAL HISTORY [...]
--- OUTSIDE RECORDS SUMMARY | 2019-12-30 19:46 | XMS REPORT ---
Author Author Saira Keaton Doctor Organization [facility] Address Unknown Phone Unavailable Care Team Providers Care Piece Jobber Name Role Phone Migration, Doctor Unavailable Unavailable PROBLEMS Type Condition ICD9-CM Code HDT31-TF Code Onset Dates Condition S tatus SNOMED Code Problem Dysmenorrhea N94.6 16 Jul, 2016 Active 2665 44725 Problem Vaginal itching N89.8 Aug, Active 3 7956629 Problem Cervical dysplasia N87.9 10 Jul, 2016 Active 89864348 Problem Obesity E66.9 Active 515917668 Problem Anxiety and depression F41.9 Jan, Acti ve 735858016 Problem Depression F32.9 Active 498492008 Problem Cigarette nicotine dependence, uncomplicated F1 7.210 May, Active 566343291 Problem Intractable migraine without status migrainosus, unspecified migraine type G43.919 Active 719981169 Problem Postmenopausal symptoms N95.9 Active 872893191 Problem Reflux gastritis K29.60 Active 574 70494 ALLERGIES No Information ENCOUNTERS Encounter Location Date Diagnosis [facility] [address] [place] [address] Jul, Gastroenteritis K52.9 ; Chil ls R68.83 and Headache R[address] [place] [address] Jul, Depression F32.9 [address] [place] [address] Jul, Depression F32.9 ; Reflux ga stritis K29.60 and Postmenopausal symptoms N95.[address] [place] [address] Jun, Postmenopausal symptoms N95. 9 ; Reflux gastritis K29.[address] [facility] [address] [id number] [place] [address] May, Elevated glucose R73.09 [facility] [address] [place] [address] May, Postmenopausal symptoms N95. 9 ; Reflux gastritis K29.60 ; Depression F32.9 ; Cigarette nicotine dependence, uncomplicated F17.210 and Obesity E66.9 [address] [place] [address] May, Depression F32.9 ; Postmenop ausal symptoms N95.9 ; Reflux gastritis K29.60 ; Cigarette nicotine dependence, uncomplicated F17.210 and Obesity E66.9 [facility] [address] [place] [address] Jan, Acute bacterial conjunctivit is of right eye H10.31 [facility] [address] [place] [address] Jan, Right wrist pain M25.531 and Injury of right upper extremity, initial encounter S49.91XA [facility] [address] [place] [address] Jan, [facility] [address] [place] [address] Jan, Right wrist pain M25.531 and Injury of right upper extremity, initial encounter S49.91XA [facility] [address] [place] [address] Jan, Injury of right upper extrem ity, initial encounter S49.91XA and Right wrist pain M25.531 [facility] [address] [place] [address] Jan, Injury of right upper extrem ity, initial encounter S49.91XA and Drug screening, pre-[facility] Z02.1 [facility] [address] [place] [address] Dec, Bronchitis J40 ; Sore throat J02.9 and Viral upper respiratory tract infection J06.9 [facility] [place] [facility] [address] [facility] [address] [address] [place] [address] Aug, Intractable migraine without status migrainosus, unspecified migraine type G43.919 [facility] [address] [place] [address] Jul, Viral upper respiratory trac t infection J06.9 [facility] [address] [id number] [place] [address] May, [facility] [address] [id number] [place] [address] May, [facility] [id number] [place] [address] May, [facility] [address] [id number] [place] [address] Jan, [facility] [id number] [place] [address] Jan, [facility] [address] [id number] [place] [address] Sep, [facility] [id number] [place] [address] Sep, [facility] [address] [id number] [place] [address] October, [facility] [id number] [place] [address] October, [facility] [address] [id number] [place] [address] Jul, [facility] [address] [id number] [place] [address] Jul, [facility] [address] [id number] [place] [address] Apr, [facility] [id number] [place] [address] Apr, [facility] [id number] [place] [address] 26 Feb, 2013 [facility] [address] [id number] [place] [address] Jul, [facility] [address] [id number] [place] [address] Jul, [facility] [address] [id number] [place] [address] Jun, [facility] [address] [id number] [place] [address] May, [facility] [address] [id number] [place] [address] May, [facility] [address] [id number] [place] [address] May, [facility] [id number] [place] [address] Apr, [facility] [address] [id number] [place] [address] Apr, [facility] [address] [id number] [place] [address] Mar, [facility] [address] [id number] [place] [address] Mar, [facility] [address] [id number] [place] [address] Mar, [facility] [address] [id number] [place] [address] 30 Feb, 2012 [facility] [address] [id number] [place] [address] 13 Feb, 2012 [facility] [id number] [place] [address] 10 Feb, 2012 [facility] [address] [id number] [place] [address] Jan, [facility] [id number] [place] [address] Jan, [facility] [address] [id number] [place] [address] Jan, [facility] [address] [id number] [place] [address] Jan, [facility] [address] [id number] [place] [address] Jan, [facility] [address] [id number] [place] [address] Jan, [facility] [address] [facility] [id number] [place] [address] Dec, [facility] [address] [id number] [place] [address] Nov, [facility] [address] [id number] [place] [address] Nov, [facility] [address] [id number] [place] [address] Nov, [facility] [address] [id number] [place] [address] Nov, [facility] [address] [id number] [place] [address] Nov, [facility] [address] [id number] [place] [address] Nov, [facility] [address] [id number] [place] [address] Nov, [facility] [address] [id number] [place] [address] Nov, [facility] [address] [id number] [place] [address] Nov, [facility] [address] [id number] [place] [address] October, [facility] [address] [id number] [place] [address] October, [facility] [address] [id number] [place] [address] October, [facility] [address] [id number] [place] [address] October, [facility] [address] [id number] [place] [address] October, [facility] [address] [id number] [place] [address] October, [facility] [address] [id number] [place] [address] Sep, [facility] [address] [id number] [facility] [place] [place] [address] Sep, [facility] [address] [id number] [place] [address] Sep, [facility] [address] [id number] [place] [address] Aug, [facility] [address] [id number] [place] [address] Aug, [facility] [address] [id number] [place] [address] Jul, [facility] [address] [id number] [place] [address] Jul, [facility] [address] [id number] [place] [address] Jul, [facility] [address] [id number] [place] [address] Jul, [facility] [address] [id number] [place] [address] Jul, [facility] [address] [id number] [place] [address] Jun, [facility] [address] [id number] [place] [address] Jun, [facility] [address] [id number] [place] [address] Jun, [facility] [address] [facility] [id number] [place] [address] Jun, [facility] [address] [facility] [id number] [place] [address] May, [facility] [address] [facility] [id number] [place] [address] May, IMMUNIZATIONS No Known Immunizations SOCIAL HISTORY [...]
--- OUTSIDE RECORDS SUMMARY | 2019-12-30 19:46 | XMS REPORT ---
Author Author Keaton Chávez Doctor Organization [facility] Address Unknown Phone Unavailable Care Team Providers Care Air Antisubmarine Officer Name Role Phone Migration, Doctor Unavailable Unavailable PROBLEMS Type Condition ICD9-CM Code QOH12-BQ Code Onset Dates Condition S tatus SNOMED Code Problem Screening for malignant neoplasm of the cervix V76.2 Active 031729904 Problem Counseling on other sexually transmitted diseases V65.45 Active 963409184 Problem Screening examination for venereal disease V74.5 Active 786526532 Problem General counseling for initiation of oth er contraceptive measures V25.02 Active 936923375593214 Problem Encounter for long-term (current) use of other medications V58.69 Active 055166324 Problem Cough 786.2 Active 57935316 Problem Pain in thoracic spine 724.1 Active 927280221 Problem Esophageal reflux 530.81 Active 24 3713089 Problem Hypopotassemia 276.8 Active 69112 004 Problem Papanicolaou smear of cervix with low grade squamous intraepithelial lesion (LGSIL) 795.03 Active 102129813 Problem Intractable migraine without status migrainosus, unspecified migraine type G43.919 Active 652242033 Problem Routine follow-up V24.2 A ctive 240193390 Problem Mild hyperemesis gravidarum, unspecified as to episode of care 643.00 Active 62646339 Problem Depressive disorder, not elsewhere classified 311 Active 73150790 Problem Posttraumatic stress disorder 309.81 Active 01759107 Problem Anxiety state, unspecified 300.00 Act idalia 763574300 ALLERGIES Substance Reaction Event Type Date Status Amoxicillin Unknown Drug Allergy Sep, Active ENCOUNTERS Encounter Location Date Diagnosis [address] [address] Aug, Intractable migraine without status migr ainosus, unspecified migraine type G43.919 [facility] [address] [facility] [id number] [address] [place] [address] Sep, [facility] [address] [id number] [address] [place] [address], [place] [id number] Sep, [facility] [address] [id number] [address] [place] [address], [place] [address] October, [facility] [address] [id number] [address] [place] [address], [place] [address] October, [facility] [address] [id number] [address] [place] [address], [place] [address] Jul, [facility] [address] [id number] [address] [place] [address], [place] [address] Jul, [facility] [address] [id number] [address] [place] [address], [place] [id number] Apr, [facility] [address] [id number] [address] [place] [address], [place] [address] Apr, [facility] [address] [id number] [address] [place] [address], [place] [id number] Feb, [facility] [address] [id number] [address] [place] [address], [place] [address] Jul, [facility] [address] [id number] [address] [place] [address], [place] [id number] Jul, [facility] [address] [id number] [address] [place] [address], [place] [address] Jun, [facility] [address] [id number] [address] [place] [address], [place] [address] May, [facility] [address] [id number] [address] [place] [address], [place] [address] May, [facility] [address] [id number] [address] [place] [address], [place] [id number] May, [facility] [address] [id number] [address] [place] [address], [place] [address] Apr, [facility] [address] [id number] [address] [place] [address], [place] [address] Apr, [facility] [address] [id number] [address] [place] [address], [place] [address] Mar, [facility] [address] [id number] [address] [place] [address], [place] [address] Mar, [facility] [address] [id number] [address] [place] [address], [place] [id number] Mar, [facility] [address] [id number] [address] [place] [address], [place] [id number] 30 Feb, 2012 [facility] [address] [id number] [address] [place] [address], [place] [id number] Feb, [facility] [address] [id number] [address] [place] [address], [place] [id number] Feb, [facility] [address] [id number] [address] [place] [address], [place] [address] Jan, [facility] [address] [id number] [address] [place] [address], [place] [address] Jan, [facility] [address] [id number] [address] [place] [address], [place] [id number] Jan, [facility] [address] [id number] [address] [place] [address], [place] [address] Jan, [facility] [address] [id number] [address] [place] [address], [place] [address] Jan, [facility] [address] [id number] [address] [place] [address], [place] [id number] Jan, [facility] [address] [id number] [address] [place] [address], [place] [address] Dec, [facility] [address] [id number] [address] [place] [address], [place] [address] Nov, [facility] [address] [id number] [address] [place] [address], [place] [address] Nov, [facility] [address] [id number] [address] [place] [address], [place] [address] Nov, [facility] [address] [id number] [address] [place] [address], [place] [id number] Nov, [facility] [address] [id number] [address] [place] [address], [place] [id number] Nov, [facility] [address] [id number] [address] [place] [address], [place] [id number] Nov, [facility] [address] [id number] [address] [place] [address], [place] [id number] 14 Nov, 2011 [facility] [address] [id number] [address] [place] [address], [place] [id number] Nov, [facility] [address] [id number] [address] [place] [address], [place] [id number] Nov, [facility] [address] [id number] [address] [place] [address], [place] [id number] October, [facility] [address] [id number] [address] [place] [address], [place] [id number] October, [facility] [address] [id number] [address] [place] [address], [place] [address] October, [facility] [address] [id number] [address] [place] [address], [place] [id number] October, [facility] [address] [id number] [address] [place] [address], [place] [id number] October, [facility] [address] [id number] [address] [place] [address], [place] [id number] October, [facility] [address] [id number] [address] [place] [address], [place] [address] Sep, [facility] [address] [id number] [address] [place] [address], [place] [address] Sep, [facility] [address] [id number] [address] [place] [address], [place] [id number] Sep, [facility] [address] [id number] [address] [place] [address] Aug, [facility] [address] [id number] [address] [place] [address] Aug, [facility] [address] [id number] [address] [place] [address] Jul, [facility] [address] [id number] [address] [place] [id number] Jul, [facility] [address] [id number] [address] [place] [address] Jul, [facility] [address] [id number] [address] [place] [address] Jul, [facility] [address] [id number] [address] [place] [address] Jul, [facility] [address] [id number] [address] [place] [address] Jun, [facility] [address] [id number] [address] [place] [address] Jun, [facility] [address] [id number] [address] [place] [address] Jun, [facility] [address] [id number] [address] [place] [address] Jun, [facility] [address] [id number] [address] [place] [address] May, [facility] [address] [id number] [address] [place] [address] May, IMMUNIZATIONS No Known Immunizations SOCIAL HISTORY Never Assessed REASON FOR VISIT EMR-[facility] [place] PLAN OF CARE VITAL SIGNS MEDICATIONS Medication Instructions Dosage Frequency Start Date End Date Duration S tatus Flexeril 10 mg 1 tablet by Oral route 1 time per dayPR Nmuscle spasm Apr, Active PredniSONE 20 mg 2 tablet by Oral route 1 time per day for 5 day(s) Jun, Active Depo-Provera Contraceptive 150 mg/mL inj ect 150 mg by intramuscular route every 3 months Jan, Active Effexor XR 75 mg 1 capsule by Oral ro karrie 2 times per day take with prozac 40mg one cap daily x1 week then prozac 40mg one cap every other day x1 week then stop prozac completely Jul, Active HydrOXYzine HCl 25 mg 1 tablet by Oral route 4 times p er dayPRN Apr, Active Albuterol Sulfate 90 mcg/actuation 2 puf fs by Inhalation route every 4-6 hours as neededPRNcough or wheezing Jun, Active RESULTS No Results PROCEDURES No Known procedures [...]
--- OUTSIDE RECORDS SUMMARY | 2019-12-30 19:46 | XMS REPORT ---
Author Author Keaton CALHOUN Organization [facility] Address [address] [place] [address] Care Team Providers Care Mailing Section Clerk Name Role Phone CARLYN CALHOUN Unavailable PROBLEMS Type Condition ICD9-CM Code [id number] Code Onset Dates Condition S tatus SNOMED Code Problem Screening for malignant neoplasm of the cervix V76.2 Active 458941113 Problem Counseling on other sexually transmitted diseases V65.45 Active 378347871 Problem Screening examination for venereal disease V74.5 Active 769127524 Problem General counseling for initiation of oth er contraceptive measures V25.02 Active [id number] Problem Encounter for long-term (current) use of other medications V58.69 Active 903832128 Problem Cough 786.2 Active 37749932 Problem Pain in thoracic spine 724.1 Active 368083858 Problem Esophageal reflux 530.81 Active 24 8725097 Problem Hypopotassemia 276.8 Active 45834 004 Problem Papanicolaou smear of cervix with low grade squamous intraepithelial lesion (LGSIL) 795.03 Active 076873301 Problem Intractable migraine without status migrainosus, unspecified migraine type G43.919 Active 370796072 Problem Routine follow-up V24.2 A ctive 390186709 Problem Mild hyperemesis gravidarum, unspecified as to episode of care 643.00 Active 88501248 Problem Depressive disorder, not elsewhere classified 311 Active 24288542 Problem Posttraumatic stress disorder 309.81 Active 62099151 Problem Anxiety state, unspecified 300.00 Act idalia [id number] ALLERGIES No Information ENCOUNTERS Encounter Location Date Diagnosis [address] [address] Aug, Intractable migraine without status migr ainosus, unspecified migraine type G43.919 [facility] [address] [facility] [id number] [address] [address] Sep, [facility] [address] [id number] [address] [place] [address], [place] [address] Sep, [facility] [address] [id number] [address] [place] [address], [place] [address] October, [facility] [address] [id number] [address] [place] [address], [place] [address] October, [facility] [address] [id number] [address] [place] [address], [place] [address] Jul, [facility] [address] [id number] [address] [place] [address], [place] [address] Jul, [facility] [address] [id number] [address] [place] [address], [place] [address] Apr, [facility] [address] [id number] [address] [place] [address], [place] [address] Apr, [facility] [address] [id number] [address] [place] [address], [place] [address] Feb, [facility] [address] [id number] [address] [place] [address], [place] [address] Jul, [facility] [address] [id number] [address] [place] [address], [place] [address] Jul, [facility] [address] [id number] [address] [place] [address], [place] [address] Jun, [facility] [address] [id number] [address] [place] [address], [place] [address] May, [facility] [address] [id number] [address] [place] [address], [place] [address] May, [facility] [address] [id number] [address] [place] [address], [place] [address] May, [facility] [address] [id number] [address] [place] [address], [place] [address] Apr, [facility] [address] [id number] [address] [place] [address], [place] [address] Apr, [facility] [address] [id number] [address] [place] [address], [place] [address] Mar, [facility] [address] [id number] [address] [place] [address], [place] [address] Mar, [facility] [address] [id number] [address] [place] [address], [place] [address] Mar, [facility] [address] [id number] [address] [place] [address], [place] [address] 30 Feb, 2012 [facility] [address] [id number] [address] [place] [address], [place] [address] Feb, [facility] [address] [id number] [address] [place] [address], [place] [address] Feb, [facility] [address] [id number] [address] [place] [address], [place] [address] Jan, [facility] [address] [id number] [address] [place] [address], [place] [address] Jan, [facility] [address] [id number] [address] [place] [address], [place] [address] Jan, [facility] [address] [id number] [address] [place] [address], [place] [address] Jan, [facility] [address] [id number] [address] [place] [address], [place] [address] Jan, [facility] [address] [id number] [address] [place] [address], [place] [address] Jan, [facility] [address] [id number] [address] [place] [address], [place] [address] Dec, [facility] [address] [id number] [address] [place] [address], [place] [address] Nov, [facility] [address] [id number] [address] [place] [address], [place] [address] Nov, [facility] [address] [id number] [address] [place] [address], [place] [address] Nov, [facility] [address] [id number] [address] [place] [address], [place] [address] Nov, [facility] [address] [id number] [address] [place] [address], [place] [address] Nov, [facility] [address] [id number] [address] [place] [address], [place] [address] Nov, [facility] [address] [id number] [address] [place] [address], [place] [address] 14 Nov, 2011 [facility] [address] [id number] [address] [place] [address], [place] [address] Nov, [facility] [address] [id number] [address] [place] [address], [place] [address] Nov, [facility] [address] [id number] [address] [place] [address], [place] [address] October, [facility] [address] [id number] [address] [place] [address], [place] [address] October, [facility] [address] [id number] [address] [place] [address], [place] [address] October, [facility] [address] [id number] [address] [place] [address], [place] [address] October, [facility] [address] [id number] [address] [place] [address], [place] [address] October, [facility] [address] [id number] [address] [place] [address], [place] [address] October, [facility] [address] [id number] [address] [place] [address], [place] [address] Sep, [facility] [address] [id number] [address] [place] [address], [place] [address] Sep, [facility] [address] [id number] [address] [address] Sep, [facility] [address] [id number] [address] [place] [address] Aug, [facility] [address] [id number] [address] [place] [address] Aug, [facility] [address] [id number] [address] [place] [id number] Jul, [facility] [address] [id number] [address] [place] [id number] Jul, [facility] [address] [id number] [address] [place] [address] Jul, [facility] [address] [id number] [address] [place] [phone] Jul, [facility] [address] [id number] [address] [place] [phone] Jul, [facility] [address] [id number] [address] [place] [id number] Jun, [facility] [address] [id number] [address] [place] [phone] Jun, [facility] [address] [id number] [address] [place] [phone] Jun, [facility] [address] [id number] [address] [place] [address] Jun, [facility] [address] [id number] [address] [place] [phone] May, [facility] [address] [id number] [address] [place] [id number] May, IMMUNIZATIONS No Known Immunizations SOCIAL HISTORY [...]
--- OUTSIDE RECORDS SUMMARY | 2019-12-30 19:46 | XMS REPORT ---
Author Author Saira Keaton Doctor Organization [facility] Address Unknown Phone Unavailable Care Team Providers Care Qual Field Manager Name Role Phone Migration, Doctor Unavailable Unavailable PROBLEMS Type Condition ICD9-CM Code [id number] Code Onset Dates Condition S tatus SNOMED Code Problem Screening for malignant neoplasm of the cervix V76.2 Active 025955674 Problem Counseling on other sexually transmitted diseases V65.45 Active 524939349 Problem Screening examination for venereal disease V74.5 Active 308265238 Problem General counseling for initiation of oth er contraceptive measures V25.02 Active 353068338706465 Problem Encounter for long-term (current) use of other medications V58.69 Active 421541392 Problem Cough 786.2 Active 74454643 Problem Pain in thoracic spine 724.1 Active 171349309 Problem Esophageal reflux 530.81 Active 24 6258621 Problem Hypopotassemia 276.8 Active 81360 004 Problem Papanicolaou smear of cervix with low grade squamous intraepithelial lesion (LGSIL) 795.03 Active 204051637 Problem Intractable migraine without status migrainosus, unspecified migraine type G43.919 Active 770885525 Problem Routine follow-up V24.2 A ctive 916489497 Problem Mild hyperemesis gravidarum, unspecified as to episode of care 643.00 Active 98570219 Problem Depressive disorder, not elsewhere classified 311 Active 67209081 Problem Posttraumatic stress disorder 309.81 Active 49966402 Problem Anxiety state, unspecified 300.00 Act idalia [id number] ALLERGIES No Information ENCOUNTERS Encounter Location Date Diagnosis [address] [address] Aug, Intractable migraine without status migr ainosus, unspecified migraine type G43.919 [facility] [address] [facility] [id number] [address] [place] [phone] Sep, [facility] [address] [facility] [id number] [address] [place] [phone] Sep, [facility] [address] [id number] [address] [place] [address], [place] [id number] October, [facility] [address] [id number] [address] [place] [address], [place] [id number] October, [facility] [address] [id number] [address] [place] [address], [place] [id number] Jul, [facility] [address] [id number] [address] [place] [address], [place] [id number] Jul, [facility] [address] [id number] [address] [place] [address], [place] [id number] Apr, [facility] [address] [id number] [address] [place] [address], [place] [id number] Apr, [facility] [address] [id number] [address] [place] [address], [place] [id number] Feb, [facility] [address] [id number] [address] [place] [address], [place] [id number] Jul, [facility] [address] [id number] [address] [place] [address], [place] [id number] Jul, [facility] [address] [id number] [address] [place] [address], [place] [id number] Jun, [facility] [address] [id number] [address] [place] [address], [place] [id number] May, [facility] [address] [id number] [address] [place] [address], [place] [id number] May, [facility] [address] [id number] [address] [place] [address], [place] [id number] May, [facility] [address] [id number] [address] [place] [address], [place] [id number] Apr, [facility] [address] [id number] [address] [place] [address], [place] [id number] Apr, [facility] [address] [id number] [address] [place] [address], [place] [id number] Mar, [facility] [address] [id number] [address] [place] [address], [place] [id number] Mar, [facility] [address] [id number] [address] [place] [address], [place] [id number] Mar, [facility] [address] [id number] [address] [place] [address], [place] [id number] 30 Feb, 2012 [facility] [address] [id number] [address] [place] [address], [place] [id number] Feb, [facility] [address] [id number] [address] [place] [address], [place] [id number] Feb, [facility] [address] [id number] [address] [place] [address], [place] [id number] Jan, [facility] [address] [id number] [address] [place] [address], [place] [id number] Jan, [facility] [address] [id number] [address] [place] [address], [place] [id number] Jan, [facility] [address] [id number] [address] [place] [address], [place] [id number] Jan, [facility] [address] [id number] [address] [place] [address], [place] [id number] Jan, [facility] [address] [id number] [address] [place] [address], [place] [id number] Jan, [facility] [address] [id number] [address] [place] [address], [place] [id number] Dec, [facility] [address] [id number] [address] [place] [address], [place] [id number] Nov, [facility] [address] [id number] [address] [place] [address], [place] [id number] Nov, [facility] [address] [id number] [address] [place] [address], [place] [id number] Nov, [facility] [address] [id number] [address] [place] [address], [place] [id number] Nov, [facility] [address] [id number] [address] [place] [address], [place] [id number] Nov, [facility] [address] [id number] [address] [place] [address], [place] [id number] Nov, [facility] [address] [id number] [address] [place] [address], [place] [id number] Nov, [facility] [address] [id number] [address] [place] [address], [place] [id number] Nov, [facility] [address] [id number] [address] [place] [address], [place] [id number] Nov, [facility] [address] [id number] [address] [place] [address], [place] [id number] October, [facility] [address] [id number] [address] [place] [address], [place] [id number] October, [facility] [address] [id number] [address] [place] [address], [place] [id number] October, [facility] [address] [id number] [address] [place] [address], [place] [id number] October, [facility] [address] [id number] [address] [place] [address], [place] [id number] October, [facility] [address] [id number] [address] [place] [address], [place] [id number] October, [facility] [address] [id number] [address] [place] [address], [place] [id number] Sep, [facility] [address] [id number] [address] [place] [address], [place] [id number] Sep, [facility] [address] [id number] [address] [place] [address], [place] [id number] Sep, [facility] [address] [id number] [address] [place] [id number] Aug, [facility] [address] [id number] [address] [place] [id number] Aug, [facility] [address] [id number] [address] [place] [id number] Jul, [facility] [address] [id number] [address] [place] [id number] Jul, [facility] [address] [id number] [address] [place] [id number] Jul, [facility] [address] [id number] [address] [place] [id number] Jul, [facility] [address] [id number] [address] [place] [id number] Jul, [facility] [address] [id number] [address] [place] [id number] Jun, [facility] [address] [id number] [address] [place] [id number] Jun, [facility] [address] [id number] [address] [place] [id number] Jun, [facility] [address] [id number] [address] [place] [id number] Jun, [facility] [address] [id number] [address] [place] [id number] May, [facility] [address] [id number] [address] [place] [id number] May, IMMUNIZATIONS No Known Immunizations SOCIAL HISTORY Never Assessed REASON FOR VISIT [place] [place] VITAL SIGNS MEDICATIONS No [...]
--- OUTSIDE RECORDS SUMMARY | 2019-12-30 19:46 | XMS REPORT ---
Author Author Keaton HENNING [facility] Address [address] [place] [address] Care Team Providers Care Emergency Veterinarian Name Role Phone CHA HENNING Unavailable PROBLEMS Type Condition ICD9-CM Code OIH96-DY Code Onset Dates Condition S tatus SNOMED Code Problem Screening for malignant neoplasm of the cervix V76.2 Active 726516759 Problem Counseling on other sexually transmitted diseases V65.45 Active 937962201 Problem Screening examination for venereal disease V74.5 Active 686565743 Problem General counseling for initiation of oth er contraceptive measures V25.02 Active [id number] Problem Encounter for long-term (current) use of other medications V58.69 Active 454415028 Problem Cough 786.2 Active 66754704 Problem Pain in thoracic spine 724.1 Active 179677598 Problem Esophageal reflux 530.81 Active 24 1234420 Problem Hypopotassemia 276.8 Active 75259 004 Problem Papanicolaou smear of cervix with low grade squamous intraepithelial lesion (LGSIL) 795.03 Active 962504787 Problem Intractable migraine without status migrainosus, unspecified migraine type G43.919 Active 180380337 Problem Routine follow-up V24.2 A ctive 158531455 Problem Mild hyperemesis gravidarum, unspecified as to episode of care 643.00 Active 75445131 Problem Depressive disorder, not elsewhere classified 311 Active 27206038 Problem Posttraumatic stress disorder 309.81 Active 93955261 Problem Anxiety state, unspecified 300.00 Act idalia [id number] ALLERGIES No Information ENCOUNTERS Encounter Location Date Diagnosis [address] [address] Aug, Intractable migraine without status migr ainosus, unspecified migraine type G43.919 [facility] [address] [facility] [id number] [address] [address] Sep, [facility] [address] [id number] [address] [place] [address], [place] [address] Sep, [facility] [address] [id number] [address] [place] [address], [place] [address] October, [facility] [address] [id number] [address] [place] [address], [place] [address] October, [facility] [address] [id number] [address] [place] [address], [place] [address] Jul, [facility] [address] [id number] [address] [place] [address], [place] [address] Jul, [facility] [address] [id number] [address] [place] [address], [place] [address] Apr, [facility] [address] [id number] [address] [place] [address], [place] [address] Apr, [facility] [address] [id number] [address] [place] [address], [place] [address] Feb, [facility] [address] [id number] [address] [place] [address], [place] [address] Jul, [facility] [address] [id number] [address] [place] [address], [place] [address] Jul, [facility] [address] [id number] [address] [place] [address], [place] [address] Jun, [facility] [address] [id number] [address] [place] [address], [place] [address] May, [facility] [address] [id number] [address] [place] [address], [place] [address] May, [facility] [address] [id number] [address] [place] [address], [place] [address] May, [facility] [address] [id number] [address] [place] [address], [place] [address] Apr, [facility] [address] [id number] [address] [place] [address], [place] [address] Apr, [facility] [address] [id number] [address] [place] [address], [place] [address] Mar, [facility] [address] [id number] [address] [place] [address], [place] [address] Mar, [facility] [address] [id number] [address] [place] [address], [place] [address] Mar, [facility] [address] [id number] [address] [place] [address], [place] [address] 30 Feb, 2012 [facility] [address] [id number] [address] [place] [address], [place] [address] Feb, [facility] [address] [id number] [address] [place] [address], [place] [address] Feb, [facility] [address] [id number] [address] [place] [address], [place] [address] Jan, [facility] [address] [id number] [address] [place] [address], [place] [address] Jan, [facility] [address] [id number] [address] [place] [address], [place] [address] Jan, [facility] [address] [id number] [address] [place] [address], [place] [address] Jan, [facility] [address] [id number] [address] [place] [address], [place] [address] Jan, [facility] [address] [id number] [address] [place] [address], [place] [address] Jan, [facility] [address] [id number] [address] [place] [address], [place] [address] Dec, [facility] [address] [id number] [address] [place] [address], [place] [address] Nov, [facility] [address] [id number] [address] [place] [address], [place] [address] Nov, [facility] [address] [id number] [address] [address] Nov, [facility] [address] [id number] [address] [place] [address], [place] [address] Nov, [facility] [address] [id number] [address] [place] [address], [place] [address] Nov, [facility] [address] [id number] [address] [place] [address], [place] [address] Nov, [facility] [address] [id number] [address] [place] [address], [place] [address] 14 Nov, 2011 [facility] [address] [id number] [address] [place] [address], [place] [address] Nov, [facility] [address] [id number] [address] [place] [address], [place] [address] Nov, [facility] [address] [id number] [address] [place] [address], [place] [address] October, [facility] [address] [id number] [address] [place] [address], [place] [address] October, [facility] [address] [id number] [address] [place] [address], [place] [address] October, [facility] [address] [id number] [address] [place] [address], [place] [address] October, [facility] [address] [id number] [address] [place] [address], [place] [address] October, [facility] [address] [id number] [address] [place] [address], [place] [address] October, [facility] [address] [id number] [address] [place] [address], [place] [address] Sep, [facility] [address] [id number] [address] [place] [address], [place] [address] Sep, [facility] [address] [id number] [address] [place] [address], [place] [address] Sep, [facility] [address] [id number] [address] [place] [address] Aug, [facility] [address] [id number] [address] [place] [address] Aug, [facility] [address] [id number] [address] [place] [address] Jul, [facility] [address] [id number] [address] [place] [address] Jul, [facility] [address] [id number] [address] [place] [address] Jul, [facility] [address] [id number] [address] [place] [address] Jul, [facility] [address] [id number] [address] [place] [address] Jul, [facility] [address] [id number] [address] [place] [address] Jun, [facility] [address] [id number] [address] [place] [address] Jun, [facility] [address] [id number] [address] [place] [address] Jun, [facility] [address] [id number] [address] [place] [address] Jun, [facility] [address] [id number] [address] [place] [address] May, [facility] [address] [id number] [address] [place] [address] May, IMMUNIZATIONS No Known Immunizations SOCIAL HISTORY Never Assessed REASON FOR VISIT PLAN OF CARE VITAL SIGNS MEDICATIONS No Known Medications RESULTS No Results PROCEDURES Procedure Date Ordered Result Body Site OB US, LIMITED, FETUS(S) December 11, 2011 INSTRUCTIONS MEDICATIONS ADMINISTERED No Known Medications [...]
--- OUTSIDE RECORDS SUMMARY | 2019-12-30 19:46 | XMS REPORT ---
Author Author SairaKeaton Doctor Organization [facility] Address Unknown Phone Unavailable Care Team Providers Care Recooperer Name Role Phone Migration, Doctor Unavailable Unavailable PROBLEMS Type Condition ICD9-CM Code PDC61-TV Code Onset Dates Condition S tatus SNOMED Code Problem Screening for malignant neoplasm of the cervix V76.2 Active 192985060 Problem Counseling on other sexually transmitted diseases V65.45 Active 726542557 Problem Screening examination for venereal disease V74.5 Active 623246922 Problem General counseling for initiation of oth er contraceptive measures V25.02 Active 144329617139812 Problem Encounter for long-term (current) use of other medications V58.69 Active 689922927 Problem Pain in thoracic spine 724.1 Active 317409061 Problem Esophageal reflux 530.81 Active 24 4587733 Problem Mild hyperemesis gravidarum, unspecified as to episode of care 643.00 Active 84335356 Problem Papanicolaou smear of cervix with low grade squamous intraepithelial lesion (LGSIL) 795.03 Active 632038757 Problem Cough 786.2 Active 16710563 Problem Intractable migraine without status migrainosus, unspecified migraine type G43.919 Active 497892296 Problem Routine follow-up V24.2 A ctive 252193537 Problem Depressive disorder, not elsewhere classified 311 Active 81448385 Problem Anxiety state, unspecified 300.00 Act idalia 261120595 Problem Hypopotassemia 276.8 Active 34180 004 Problem Posttraumatic stress disorder 309.81 Active [id number] ALLERGIES No Information ENCOUNTERS Encounter Location Date Diagnosis [address] [address] Aug, Intractable migraine without status migr ainosus, unspecified migraine type G43.919 [facility] [address] [facility] [id number] [address] [place] [address] Sep, [facility] [address] [facility] [id number] [address] [place] [address] Sep, [facility] [address] [id number] [address] [place] [address], [place] [address] October, [facility] [address] [id number] [address] [place] [address], [place] [address] October, [facility] [address] [id number] [address] [place] [address], [place] [address] Jul, [facility] [address] [id number] [address] [place] [address], [place] [address] Jul, [facility] [address] [id number] [address] [place] [address], [place] [address] Apr, [facility] [address] [id number] [address] [place] [address], [place] [address] Apr, [facility] [address] [id number] [address] [place] [address], [place] [address] Feb, [facility] [address] [id number] [address] [place] [address], [place] [address] Jul, [facility] [address] [id number] [address] [place] [address], [place] [address] Jul, [facility] [address] [id number] [address] [place] [address], [place] [address] Jun, [facility] [address] [id number] [address] [place] [address], [place] [address] May, [facility] [address] [id number] [address] [place] [address], [place] [address] May, [facility] [address] [id number] [address] [place] [address], [place] [address] May, [facility] [address] [id number] [address] [place] [address], [place] [address] Apr, [facility] [address] [id number] [address] [place] [address], [place] [address] Apr, [facility] [address] [id number] [address] [place] [address], [place] [address] Mar, [facility] [address] [id number] [address] [place] [address], [place] [address] Mar, [facility] [address] [id number] [address] [place] [address], [place] [address] Mar, [facility] [address] [id number] [address] [place] [address], [place] [address] 30 Feb, 2012 [facility] [address] [id number] [address] [place] [address], [place] [address] Feb, [facility] [address] [id number] [address] [place] [address], [place] [address] Feb, [facility] [address] [id number] [address] [place] [address], [place] [address] Jan, [facility] [address] [id number] [address] [place] [address], [place] [address] Jan, [facility] [address] [id number] [address] [place] [address], [place] [address] Jan, [facility] [address] [id number] [address] [place] [address], [place] [address] Jan, [facility] [address] [id number] [address] [place] [address], [place] [address] Jan, [facility] [address] [id number] [address] [place] [address], [place] [address] Jan, [facility] [address] [id number] [address] [place] [address], [place] [address] Dec, [facility] [address] [id number] [address] [place] [address], [place] [address] Nov, [facility] [address] [id number] [address] [place] [address], [place] [address] Nov, [facility] [address] [id number] [address] [place] [address], [place] [address] Nov, [facility] [address] [id number] [address] [place] [address], [place] [address] Nov, [facility] [address] [id number] [address] [place] [address], [place] [address] Nov, [facility] [address] [id number] [address] [place] [address], [place] [address] Nov, [facility] [address] [id number] [address] [place] [address], [place] [address] Nov, [facility] [address] [id number] [address] [place] [address], [place] [address] Nov, [facility] [address] [id number] [address] [place] [address], [place] [address] Nov, [facility] [address] [id number] [address] [place] [address], [place] [address] October, [facility] [address] [id number] [address] [place] [address], [place] [address] October, [facility] [address] [id number] [address] [place] [address], [place] [address] October, [facility] [address] [id number] [address] [place] [address], [place] [address] October, [facility] [address] [id number] [address] [place] [address], [place] [address] October, [facility] [address] [id number] [address] [place] [address], [place] [address] October, [facility] [address] [id number] [address] [place] [address], [place] [address] Sep, [facility] [address] [id number] [address] [place] [address], [place] [address] Sep, [facility] [address] [id number] [address] [place] [address], [place] [address] Sep, [facility] [address] [id number] [address] [place] [address] Aug, [facility] [address] [id number] [address] [place] [address] Aug, [facility] [address] [id number] [address] [place] [address] Jul, [facility] [address] [id number] [address] [place] [address] Jul, [facility] [address] [id number] [address] [place] [address] Jul, [facility] [address] [id number] [address] [place] [address] Jul, [facility] [address] [id number] [address] [place] [address] Jul, [facility] [address] [id number] [address] [place] [address] Jun, [facility] [address] [id number] [address] [place] [address] Jun, [facility] [address] [id number] [address] [place] [address] Jun, [facility] [address] [id number] [address] [place] [address] Jun, [facility] [address] [id number] [address] [place] [address] May, [facility] [address] [id number] [address] [place] [address] May, IMMUNIZATIONS No Known Immunizations SOCIAL HISTORY Never Assessed [place]AS[place] FOR [place]IT [place] [place] [...]
--- OUTSIDE RECORDS SUMMARY | 2019-12-30 19:47 | XMS REPORT | Continuity of Care Document ---
Author Organization Unknown Address Unknown Phone Unavailable Allergies Active Description Code Type Severity Reaction Onset Reported/Identified Relationship to Patient Clinical Status Yes amoxicillin [id number] Drug Aller gy Unknown N/A 05/24/2011 Yes Amoxicillin Drug Allergy 07/23/2011 Yes Amoxicillin Drug Allergy N/A N/A 07/23/2011 Medications There is no data. Problems Date Dx Coded Attending Type Code Diagnosis Diagnosed By 06/04/[address] Of - Std Unspecified 06/04/[address] OF - TOBACCO USE 06/04/2011 787.02 Huang sea Alone 06/04/2011 V22.1 PREG PATITO, NORMAL OTHER 06/04/2011 GWENDOLYN YUN APRN R 647.20 Compl Of - Std Unspecified 06/04/2011 GWENDOLYN YUN APRN R 649.00 COMPL OF - TOBACCO USE 06/04/2011 GWENDOLYN YUN APRN R 787.02 Nausea Alone 06/04/2011 GWENDOLYN YUN APRN R V22.1 , NORMAL OTHER 06/04/[address] Of - Std Unspecified 06/04/[address] OF - TOBACCO USE 06/04/2011 787.02 Huang sea Alone 06/04/2011 V22.1 PREG PATITO, NORMAL OTHER 06/26/2011 799.22 IRR ITIBILITY 06/26/2011 V65.45 Std Counseling 06/26/2011 V74.5 Std Screen 06/26/2011 V76.2 Cerv ical Cancer Screening (pap Smear) 06/26/2011 GWENDOLYN YUN APRN R 799.22 IRRITIBILITY 06/26/2011 GWENDOLYN YUN APRN R V65.45 Std Counseling 06/26/2011 GWENDOLYN YUN APRN R V74.5 Std Screen 06/26/2011 GWENDOLYN YUN APRN V76.2 Cervical Cancer Screening (pap Smear) 06/26/2011 799.22 IRR ITIBILITY 06/26/2011 V65.45 Std Counseling 06/26/2011 V74.5 Std Screen 06/26/2011 V76.2 Cerv ical Cancer Screening (pap Smear) 07/23/2011 643.00 Mil d Hyperemesis Gravidarum Unspecified As To Episode Of Care 07/23/2011 GWENDOLYN YUN APRN R 643.00 Mild Hyperemesis Gravidarum Unspecified As To Episode Of Care 07/23/2011 643.00 Mil d Hyperemesis Gravidarum Unspecified As To Episode Of Care 08/20/2011 530.81 ESO PHAGEAL REFLUX 08/20/2011 GWENDOLYN YUN APRN 530.81 ESOPHAGEAL REFLUX 08/20/2011 530.81 ESO PHAGEAL REFLUX 09/22/2011 309.81 AN PTSD 09/22/2011 GWENDOLYN YUN APRN 309.81 AN PTSD 09/22/2011 309.81 AN PTSD 11/03/2011 276.8 Hypo potassemia 11/03/2011 311 DEPRES SIVE DISORDER NOT ELSEWHERE CLASSIFIED 11/03/2011 GWENDOLYN YUN APRN R 276.8 Hypopotassemia 11/03/2011 GWENDOLYN YUN APRN R 311 DEPRESSIVE DISORDER NOT ELSEWHERE CLASSIFIED 11/03/2011 276.8 Hypo potassemia 11/03/2011 311 DEPRES SIVE DISORDER NOT ELSEWHERE CLASSIFIED 01/25/2012 V24.2 POST F/U, ROUTINE 01/25/2012 V25.02 CON TRACEPTION - ANY METHOD 01/25/2012 V76.2 CERV ICAL CANCER SCREENING (PAP SMEAR) 01/25/2012 GWENDOLYN YUN APRN V24.2 F/U, ROUTINE 01/25/2012 GWENDOLYN YUN APRN V25.02 CONTRACEPTION - ANY METHOD 01/25/2012 GWENDOLYN YUN APRN V76.2 CERVICAL CANCER SCREENING (PAP SMEAR) 01/25/2012 V24.2 POST F/U, ROUTINE 01/25/2012 V25.02 CON TRACEPTION - ANY METHOD 01/25/2012 V76.2 CERV ICAL CANCER SCREENING (PAP SMEAR) 02/22/2012 V58.69 [place] G-TERM (CURRENT) USE OF OTHER MEDICATIONS 02/22/2012 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, 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 V58.69 LONG-TERM (CURRENT) USE OF OTHER MEDICATIONS 02/22/2012 V58.69 [place] G-TERM (CURRENT) USE OF OTHER MEDICATIONS 02/25/2012 795.03 ABN ORMAL PAP - LGSIL 02/25/2012 GWENDOLYN YUN APRN R 795.03 ABNORMAL PAP - LGSIL 02/25/2012 795.03 ABN ORMAL PAP - LGSIL 04/15/2012 300.00 ANX IETY STATE UNSPECIFIED 04/15/2012 724.1 PAIN IN THORACIC SPINE 04/15/2012 GWENDOLYN YUN APRN R 300.00 ANXIETY STATE UNSPECIFIED 04/15/2012 GWENDOLYN YUN APRN 724.1 PAIN IN THORACIC SPINE 04/15/2012 300.00 ANX IETY STATE UNSPECIFIED 04/15/2012 724.1 PAIN IN THORACIC SPINE 07/12/2012 GWENDOLYN YUN APRN 786.2 cough 10/03/2019 Ot F17.210 NI COTINE DEPENDENCE, CIGARETTES, UNCOMPL 10/03/2019 Ot J20.9 ACUT E BRONCHITIS, UNSPECIFIED 10/03/2019 Ot J45.909 UN SPECIFIED ASTHMA, UNCOMPLICATED 10/03/2019 Ot R05 COUGH 10/03/2019 Ot Z88.0 JENNIE RGY STATUS TO PENICILLIN Procedures There is no data. Results Test Result Range CBC w/MANUAL DIFF - 06/02/19 08:26 WHITE BLOOD CELL COUNT 9.5 Thousand/uL 3 .8-10.8 RED BLOOD CELL COUNT 4.41 Million/uL 3.8 0-5.10 HEMOGLOBIN 14.8 g/dL 11.7-15.5 HEMATOCRIT 43.5 % 35.0-45.0 MCV 98.6 fL 80.0-100.0 MCH 33.6 pg 27.0-33.0 MCHC 34.0 g/dL 32.0-36.0 RDW 12.7 % 11.0-15.0 PLATELET COUNT 357 Thousand/uL 140-400 MPV 11.5 fL 7.5-12.5 ABSOLUTE NEUTROPHILS 4617 cells/uL 1500- 7800 ABSOLUTE MONOCYTES 371 cells/uL 200-950 ABSOLUTE EOSINOPHILS 181 cells/uL 15-500 ABSOLUTE BASOPHILS 0 cells/uL 0-200 NEUTROPHILS 48.6 % NRG LYMPHOCYTES 42.7 % NRG MONOCYTES 3.9 % NRG EOSINOPHILS 1.9 % NRG BASOPHILS 0 % NRG ABSOLUTE BAND NEUTROPHILS 276 cells/uL 0 -750 ABSOLUTE LYMPHOCYTES 4057 cells/uL 850-3 900 BAND NEUTROPHILS 2.9 % NRG PLATELET ESTIMATION ADEQUATE ADEQUATE Encounters ACCT No. Visit Date/Time Discharge Status Pt. Type Provider Facility Loc./Unit Complaint [id number] 09/25/2019 15:30:00 09/25/2019 23:59: 59 CLS Outpatient [facility] [id number] 06/02/2019 07:45:00 Document Registration [id number] 07/12/2012 12:49:00 07/12/2012 23:59: 59 CLS Outpatient GWENDOLYN YUN APRN [id number] 04/15/2012 13:33:00 04/15/2012 23:59: 59 CLS Outpatient [id number] 04/15/2012 13:33:00 04/15/2012 23:59:5 9 CLS Outpatient [id number] 10/02/2019 12:10:00 Document Registration
[2019-12-30] MEDS ORDERED: fentaNYL INJECTION 100 MCG/2 ML AMP IVP ONE (20:45)
[2019-12-30] MEDS ORDERED: PROCHLORPERAZINE 10 MG/2ML INJ (COMPAZINE) IV ONE (20:45)
[2019-12-30] MEDS ORDERED: NS IV 1000 ML 1,000 ML IV SCH (20:45)
--- NOTE | 2019-12-30 20:46 | ED Headache ---
General Chief Complaint: Head/Cervical Problems Stated Complaint: FELT POP IN NECK/LEFT EYE BLURRY/DIZZINESS Nursing Triage Note: Pt was at work and felt a "pop" on the left side of her neck around 1900 Pt became dizzy and has blurred vision in the left eye. Nursing Sepsis Screen: No Definite Risk History of Present Illness Date Seen by Provider: Dec 30, 2019 Time Seen by Provider: 20:00 Initial Comments Patient is a 29-year-old female with history of migraine headaches who presents with acute onset worse headache of her life. Patient was at work 45 minutes prior to arrival when she felt this sudden sharp pain pump posterior neck which is radiating to her left retro-orbital region. Headache is described as severe, sharp and throbbing behind right eye. Is associated with blurred vision in the right eye.. Is worse with light, position change and movement. Patient reports nausea without vomiting. Headache pattern is different than typical migraine in severity location. No extremity weakness loss of sensation. Chest pain palpitations. No history of subarachnoid hemorrhage. 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 Timing/Duration: 1 hour Severity/Quality: moderate Location: frontal, occipital Prior Headaches/Recent Trauma: no recent headache/trauma, frequent headaches Associated Symptoms: denies symptoms Allergies and Home Medications Allergies Coded Allergies: Amoxicillin (Unverified Allergy, 05/24/11) Home Medications Albuterol Sulfate 1 Puff Puff, 2 PUFF IH Q4H, (Reported) 1 PUFF = 90 MCG Azithromycin 250 Mg Tab, 1 TAB PO DAILY Prescribed by: LOPEZ MARTINEZ on 07/08/122235 Cyclobenzaprine Hcl 10 Mg Tablet, 1 EACH PO Q8HR PRN FOR MUSCLE SPASMS Prescribed by: PAMELA CHAVEZ on 04/04/122225 Doxycycline Hyclate 100 Mg Capsule, 1 EACH PO BID Prescribed by: LOPEZ MARTINEZ on 06/19/12 0200 Fluoxetine Hcl 40 Mg Capsule, 2 EACH PO DAILY, (Reported) Guaifenesin/Dextromethorphan 5 Ml Liquid, 10 ML PO Q4H PRN Prescribed by: LOPEZ MARTINEZ on 07/08/122235 Hydroxyzine Pamoate 25 Mg Capsule, 25 MG PO Q6H, (Reported) Prednisone 50 Mg Tab, 50 MG PO DAILY Prescribed by: KANDIS CAMP on 09/30/19 0950 Patient Home Medication List Home Medication List Reviewed: Yes Review of Systems Review of Systems Constitutional: see HPI Eyes: See HPI Ears, Nose, Mouth, Throat: see HPI Respiratory: see HPI Cardiovascular: see HPI Gastrointestinal: see HPI Genitourinary: see HPI Musculoskeletal: see HPI Skin: see HPI Psychiatric/Neurological: See HPI All Other Systems Reviewed Negative Unless Noted: Yes Past Rplrdej-Chywfp-Cmvcxk Hx Past Med/Social Hx: Reviewed Nursing Past Med/Soc Hx Patient Social History Alcohol Use: Denies Use Recreational Drug Use: No Smoking Status: Current Everyday Smoker Type Used: Cigarettes Recent Foreign Travel: No Contact w/Someone Who Travel: No Recent Infectious Disease Expo: No Recent Hopitalizations: Yes (childbirth) Physical Abuse: No Sexual Abuse: No Immunizations Up To Date Date of Influenza Vaccine: Dec 13, 2011 Past Medical History Surgeries: Yes Hysterectomy Respiratory: Yes Asthma Cardiac: No Neurological: No Reproductive Disorders: No Sexually Transmitted Disease: Yes Genitourinary: No Gastrointestinal: No Musculoskeletal: No Chronic Back Pain Endocrine: No HEENT: No Cancer: No Cervical Psychosocial: No Integumentary: No Blood Disorders: No Adverse Reaction/Blood Tranf: No Physical Exam Vital Signs Vital Signs - First Documented 12/30/19 19:45 Temp 36.7 Pulse 68 Resp 16 B/P (MAP) 138/89 (105) Pulse Ox 99 O2 Delivery Room Air Capillary Refill : Less Than 3 Seconds Height, Weight, BMI Height: '" Weight: lbs. oz. kg; 30.00 BMI Method:Stated General Appearance: WD/WN, mild distress HEENT: PERRL/EOMI, normal ENT inspection Neck: non-tender, full range of motion, supple Cardiovascular: normal peripheral pulses Respiratory: chest non-tender, lungs clear Gastrointestinal: normal bowel sounds, non tender, soft Back: normal inspection Extremities: normal range of motion, non-tender Psychiatric: alert, oriented x 3 Crainal Nerves: normal hearing, normal speech, PERRL Motor/Sensory: no motor deficit, no sensory deficit Skin: normal color Progress/Results/Core Measures Results/Orders Lab Results Laboratory Tests Test 12/30/19 22:10 Range/Units White Blood Count 9.9 4.3-11.0 10^3/uL Red Blood Count 3.51 L 4.35-5.85 10^6/uL Hemoglobin 11.6 11.5-16.0 G/DL Hematocrit 34 L 35-52 % Mean Corpuscular Volume 96 80-99 FL Mean Corpuscular Hemoglobin 33 25-34 PG Mean Corpuscular Hemoglobin Concent 35 32-36 G/DL Red Cell Distribution Width 11.8 10.0-14.5 % Platelet Count 245 130-400 10^3/uL Mean Platelet Volume 11.0 H 7.4-10.4 FL Neutrophils (%) (Auto) 45 42-75 % Lymphocytes (%) (Auto) 47 H 12-44 % Monocytes (%) (Auto) 6 0-12 % Eosinophils (%) (Auto) 2 0-10 % Basophils (%) (Auto) 0 0-10 % Neutrophils # (Auto) 4.4 1.8-7.8 X 10^3 Lymphocytes # (Auto) 4.7 H 1.0-4.0 X 10^3 Monocytes # (Auto) 0.6 0.0-1.0 X 10^3 Eosinophils # (Auto) 0.2 0.0-0.3 10^3/uL Basophils # (Auto) 0.0 0.0-0.1 10^3/uL My Orders Orders - CHARLEE BONDS DO Cbc With Automated Diff (12/30/19 20:36) Comprehensive Metabolic Panel (12/30/19 20:36) Ct Angio Head/Neck (12/30/19 20:36) Ct Head W Wo (12/30/19 20:36) Fentanyl Injection (Sublimaze Injection (12/30/19 20:45) Prochlorperazine Injection (Compazine In (12/30/19 20:45) Ns Iv 1000 Ml (Sodium Chloride 0.9%) (12/30/19 20:45) Iohexol Injection (Omnipaque 350 Mg/Ml 1 (12/30/19 21:00) Di Iv Start (Assessment) .IV start (12/30/19 20:57) Received Contrast (Hold Metformin- Contr (12/30/19 21:00) Sodium Chloride Flush (Catheter Flush Sy (12/30/19 21:00) Ns (Ivpb) (Sodium Chloride 0.9% Ivpb Bag (12/30/19 21:00) Ed Iv/Invasive Line Start (12/30/19 20:59) Medications Given in ED Current Medications Medications Dose Ordered Sig/Latasha Route Start Time Stop Time Status Last Admin Dose Admin Fentanyl Citrate 100 mcg ONCE ONCE IVP 12/30/19 20:45 12/30/19 20:46 DC 12/30/19 21:20 100 MCG Iohexol 75 ml ONCE ONCE IV 12/30/19 21:00 12/30/19 21:01 DC 12/30/19 21:15 75 ML Prochlorperazine Edisylate 10 mg ONCE ONCE IV 12/30/19 20:45 12/30/19 20:46 DC 12/30/19 21:20 10 MG Sodium Chloride 10 ml NEEDED PRN IV 12/30/19 21:00 12/30/19 21:16 10 ML Sodium Chloride 100 ml ONCE ONCE IV 12/30/19 21:00 12/30/19 21:01 DC 12/30/19 21:16 100 ML Vital Signs/I&O 12/30/19 19:45 Temp 36.7 Pulse 68 Resp 16 B/P (MAP) 138/89 (105) Pulse Ox 99 O2 Delivery Room Air Blood Pressure Mean: 105 Departure Communication (Admissions) Acute onset thunderclap headache. No neurologic deficits. Patient resting comfortably in bed with treatment. Vital signs improved. CT angiogram head and neck negative for presence of aneurysm or dissection. Suspect migraine variant. Recommend supportive care, watchful waiting and PCP follow-up. Return precautions reviewed. Patient verbalizes understanding and agreement discharge instructions prior to departure. Impression Primary Impression: Headache Disposition: HOME, SELF-CARE Condition: Stable Departure-Patient Inst. Decision time for Depature: 22:28 Referrals: JOE HARRIS (PCP/Family) Primary Care Physician Patient Instructions: Headache, Adult (DC) Add. Discharge Instructions: Please go home and rest and increase fluid intake. Take Excedrin Migraine and Compazine as needed if headache persists or returns. Follow-up with your PCP for reevaluation as needed. Return to the ED if new or worsening symptoms. All discharge instructions reviewed with patient and/or family. Voiced understanding. Scripts Prochlorperazine Maleate (Compazine) 10 Mg Tablet 10 MG PO Q6H, #10 TAB Prov: CHARLEE BONDS DO 12/30/19 CHARLEE BONDS DO Dec 30, 2019 20:46
[2019-12-30] MEDS ORDERED: IOHEXOL 350 MG/ML 100 ML (OMNIPAQUE 350) VIAL IV ONE (21:00)
[2019-12-30] MEDS ORDERED: NS 100 ML (IVPB) BAG IV ONE (21:00)
[2019-12-30] MEDS ORDERED: HOLD METFORMIN - RECEIVED CONTRAST 20 ML VIAL IV SCH (21:00)
[2019-12-30] MEDS ORDERED: CATHETER FLUSH 10 ML SYR IV PRN (21:00)
[2019-12-30 22:16] LABS: BASOPHILS % (AUTO) 0 % (0-10); EOSINOPHILS # (AUTO) 0.2 10^3/uL (0.0-0.3); EOSINOPHILS % (AUTO) 2 % (0-10); HEMATOCRIT 34 % (35-52); HEMOGLOBIN 11.6 G/DL (11.5-16.0); LYMPHOCYTES # (AUTO) 4.7 X 10^3 (1.0-4.0); LYMPHOCYTES % (AUTO) 47 % (12-44); MEAN CORPUSCULAR HEMOGLOBIN 33 PG (25-34); MEAN CORPUSCULAR HGB CONC 35 G/DL (32-36); MEAN CORPUSCULAR VOLUME 96 FL (80-99); MONOCYTES # (AUTO) 0.6 X 10^3 (0.0-1.0); MONOCYTES % (AUTO) 6 % (0-12); NEUTROPHILS # (AUTO) 4.4 X 10^3 (1.8-7.8); NEUTROPHILS % (AUTO) 45 % (42-75); PLATELET COUNT 245 10^3/uL (130-400); RED CELL DISTRIBUTION WIDTH 11.8 % (10.0-14.5); WHITE BLOOD COUNT 9.9 10^3/uL (4.3-11.0)
[2019-12-30] MEDS ORDERED: PROC-1 PO (22:28)
[2019-12-30] MEDS ORDERED: KETOROLAC 30 MG/ML VIAL IVP ONE (22:30)
[2019-12-30 22:38] LABS: ALANINE AMINOTRANSFERASE 16 U/L (0-55); ALBUMIN 3.8 GM/DL (3.2-4.5); ALKALINE PHOSPHATASE 111 U/L (40-136); BILIRUBIN,TOTAL < 0.2 MG/DL (0.1-1.0); BUN/CREATININE RATIO 6; CALCIUM 8.6 MG/DL (8.5-10.1); CARBON DIOXIDE 24 MMOL/L (21-32); CHLORIDE 107 MMOL/L (98-107); CREATININE SERUM 0.68 MG/DL (0.60-1.30); GFR ESTIMATED > 60; GLUCOSE 107 MG/DL (70-105); POTASSIUM 3.5 MMOL/L (3.6-5.0); SODIUM 142 MMOL/L (135-145); TOTAL PROTEIN 6.3 GM/DL (6.4-8.2)
[2019-12-30 22:41] VITALS: BP 125/89
--- NOTE | 2019-12-31 08:28 | Diagnostic Imaging Report ---
PROCEDURE: CT angiography of the head and CT angiography of the neck with and without contrast. TECHNIQUE: Contiguous noncontrast images were obtained from the skull base through the vertex. After intravenous contrast administration, helical CT angiography of the neck was performed. Source data was reformatted into 3D MIP projections. Delayed post contrast acquisition was also obtained. Auto Exposure Controls were utilized during the CT exam to meet ALARA standards for radiation dose reduction. INDICATION: Dizziness. Left neck sensation. Blurred vision in left eye. COMPARISON: None. FINDINGS: Noncontrast head CT demonstrates no intracranial hemorrhage, mass effect, hydrocephalus or extra-axial fluid collections. No CT evidence of a territorial infarction. The paranasal sinuses and mastoids are clear. CTA does not include the aortic arch. The basilar, bilateral common carotid, internal carotid, vertebral, anterior cerebral, middle cerebral and posterior cerebral arteries are widely patent without evidence of aneurysm or dissection. The dural venous sinuses are grossly patent. No abnormal intracranial enhancement on delayed postcontrast imaging. No substantial spondylotic change in the cervical spine. No evidence of neural impingement or acute osseous findings. The visualized paravertebral soft tissues are unremarkable. The lung apices are clear. IMPRESSION: 1. No acute intracranial CT findings. 2. No high-grade narrowing, aneurysm or dissection involving major arteries in the head and neck. Dictated by: Dictated on workstation # [id number]
== END 2019-12-30 22:40 | disposition home or self-care (01) ==
LOC: EDUNIT# 19:37 → ER FS 19:41
DX: R51 Headache (principal); J45.909 Unspecified asthma, uncomplicated; G89.29 Other chronic pain; M54.9 Dorsalgia, unspecified; Z88.1 Allergy status to other antibiotic agents; F17.210 Nicotine dependence, cigarettes, uncomplicated; Z85.41 Personal history of malignant neoplasm of cervix uteri; Z79.52 Long term (current) use of systemic steroids; Z79.891 Long term (current) use of opiate analgesic
CPT/HCPCS: 36415; 70496; 70498; 80053; 85025

== ENCOUNTER 2021-05-30 22:36 | Emergency (ER) | payer SELFPAY ==
[~2021-05-30 22:36] MED LIST changes: +PROC-1 PO
[2021-05-30] MEDS ORDERED: ONDANSETRON 4 MG/2 ML (SDV) Z0FRAN IVP STA (22:55)
[2021-05-30] MEDS ORDERED: NS IV 1000 ML 1,000 ML IV STA (22:55)
[2021-05-30] MEDS ORDERED: fentaNYL INJ 100 MCG/2 ML AMP IVP STA (22:55)
--- NOTE | 2021-05-30 22:57 | ED Abdominal Pain ---
General Chief Complaint: Abdominal/GI Problems Stated Complaint: ABD PAIN Source of Information: Patient History of Present Illness Date Seen by Provider: May 30, 2021 Time Seen by Provider: 22:40 Initial Comments 30-year-old female presenting with complaints of severe abdominal pain and GERD especially after eating anything. She had been seen at the clinic previously and was advised that she had a hernia. She was waiting to be referred to a specialist in [place] for further evaluation of the hernia. She has had her gallbladder out as well was hysterectomy. She has had looser stools ever since having the gallbladder removed. She denies any significant change in her bowel movements. She denies any pain or burning with urination. She was having increased abdominal pain and cramping especially in the lower half of her abdomen this evening. Since it was so severe she came to the emergency department. She had tried taking ibuprofen earlier in the day for the symptoms but it had not helped. Usually taking ibuprofen helps resolve her pain Timing/Duration: 12-24 Hours Severity/Quality: Severe, Aching, Burning, Cramping Location: Generalized Abdomen Radiation: Epigastric Activities at Onset: None Modifying Factors: Worsens With Eating Associated Symptoms: No Back Pain, No Chest Pain, No Diaphoresis, No Fever/Chills, No Headache; Heartburn, Nausea/Vomiting (Feels nauseated but no vomiting); No Shortness of Air, No Swelling/Mass in Abdomen, No Syncope, No W eakness Allergies and Home Medications Allergies Coded Allergies: Amoxicillin (Unverified Allergy, 05/24/11) Patient Home Medication List Home Medication List Reviewed: Yes Albuterol Sulfate (Proair Hfa) 1 Puff Puff, 2 PUFF IH Q4H, (Reported) Entered as Reported by: CARYL COPELAND on 09/30/19938 Azithromycin (Zithromax Tab) 250 Mg Tab, 1 TAB PO DAILY Prescribed by: LOPEZ MARTINEZ on 07/08/126 Azithromycin (Zithromax) 1 Gm Packet, 1 GM PO, (Reported) Entered as Reported by: CARYL COPELAND on 09/30/19938 Benzonatate (Tessalon Perle) 100 Mg Capsule, 100 MG PO, (Reported) Entered as Reported by: CARYL COPELAND on 09/30/19938 Cyclobenzaprine Hcl (Cyclobenzaprine Hcl) 10 Mg Tablet, 1 EACH PO Q8HR PRN Prescribed by: PAMELA CHAVEZ on 04/04/122225 Dicyclomine HCl (Dicyclomine HCl) 20 Mg Tablet, 20 MG PO Q6H PRN for abdominal pain/cramping Prescribed by: DANIS LAW on 05/31/21 0037 Doxycycline Hyclate (Doxycycline Hyclate) 100 Mg Capsule, 1 EACH PO BID Prescribed by: LOPEZ MARTINEZ on 06/19/12 0200 Estradiol (Estradiol Tablet) 0.5 Mg Tablet, (Reported) Entered as Reported by: CARYL COPELAND on 09/30/19 09 Fluoxetine Hcl (Prozac) 40 Mg Capsule, 2 EACH PO DAILY, (Reported) Entered as Reported by: JOAN QUINONES on 06/19/12136 Guaifenesin/Dextromethorphan (Guaifenesin-Dm Solution) 5 Ml Liquid, 10 ML PO Q4H PRN Prescribed by: LOPEZ MARTINEZ on 07/08/122235 Hydroxyzine Pamoate (Vistaril) 25 Mg Capsule, 25 MG PO Q6H, (Reported) Entered as Reported by: JOAN QUINONES on 06/19/12136 Omeprazole (Omeprazole) 20 Mg Capsule.dr (Reported) Entered as Reported by: CARYL COPELAND on 09/30/19938 Prednisone (Prednisone) 50 Mg Tab, 50 MG PO DAILY Prescribed by: KANDIS CAMP on 09/30/19 0950 Prochlorperazine Maleate (Compazine) 10 Mg Tablet, 10 MG PO Q6H Prescribed by: CHARLEE BONDS on 12/30/192227 Review of Systems Review of Systems Constitutional: No chills, No fever EENTM: No Symptoms Reported; No Eye Pain Respiratory: Denies Cough, Denies Orthopnea Cardiovascular: Denies See HPI, Denies Chest Pain Gastrointestinal: See HPI Genitourinary: No Symptoms Reported Musculoskeletal: no symptoms reported Skin: no symptoms reported Psychiatric/Neurological: Anxiety Hematologic/Lymphatic: Denies Easy Bleeding, Denies Easy Bruising Past Iqphtae-Vkitxh-Uhpvup Hx Patient Social History Tobacco Use?: No Use of E-Cig and/or Vaping dev: No Substance use?: No Alcohol Use?: No Pt feels they are or have been: No Past Medical History Surgery/Hospitalization HX: Cholecystectomy, hysterectomy Surgeries: Yes Hysterectomy Respiratory: Yes Asthma Cardiac: No Neurological: No Reproductive Disorders: No Sexually Transmitted Disease: Yes Genitourinary: No Gastrointestinal: No Musculoskeletal: No Chronic Back Pain Endocrine: No HEENT: No Cancer: No Cervical Psychosocial: No Integumentary: No Blood Disorders: No Adverse Reaction/Blood Tranf: No Physical Exam Vital Signs Vital Signs - First Documented 05/30/21 22:47 Pulse 62 Resp 18 B/P (MAP) 129/84 (99) Pulse Ox 100 O2 Delivery Room Air Capillary Refill : Height/Weight/BMI Height: '" Weight: lbs. oz. kg; 30.00 BMI Method:Stated General Appearance: WD/WN, no apparent distress HEENT: PERRL/EOMI, normal ENT inspection, TMs normal, pharynx normal Neck: non-tender, full range of motion, supple, normal inspection Respiratory: chest non-tender, lungs clear, normal breath sounds, no respiratory distress, no accessory muscle use Cardiovascular: normal peripheral pulses, regular rate, rhythm Gastrointestinal: normal bowel sounds, non tender, soft, guarding; No rebound; tenderness Rectal: normal exam Extremities: normal range of motion, non-tender, normal capillary refill Back: normal inspection, no CVA tenderness, no vertebral tenderness Pelvic: normal external exam, normal adnexa, no cerv. motion tender, no masses Male: normal genitalia Neurologic/Psychiatric: echo vascular tech II-XII nml as tested, no motor/sensory deficits, alert, oriented x 3, other (Anxious) Skin: normal color, warm/dry; No rash Progress/Results/Core Measures Results/Orders Lab Results Laboratory Tests Test 05/30/21 22:58 05/30/21 23:07 Range/Units Urine Color YELLOW Urine Clarity CLEAR Urine pH 6.0 5-9 Urine Specific [place] <=1.005 1.016-1.022 Urine Protein NEGATIVE NEGATIVE Urine Glucose (UA) NEGATIVE NEGATIVE Urine Ketones NEGATIVE NEGATIVE Urine Nitrite NEGATIVE NEGATIVE Urine Bilirubin NEGATIVE NEGATIVE Urine Urobilinogen 0.2 < = 1.0 MG/DL Urine Leukocyte Esterase NEGATIVE NEGATIVE Urine RBC (Auto) NEGATIVE NEGATIVE Urine RBC 0-2 /HPF Urine WBC NONE /HPF Urine Squamous Epithelial Cells 5-10 /HPF Urine Crystals NONE /LPF Urine Bacteria NEGATIVE /HPF Urine Casts NONE /LPF Urine Mucus NEGATIVE /LPF Urine Culture Indicated NO White Blood Count 13.9 H 4.3-11.0 10^3/uL Red Blood Count 3.60 L 3.80-5.11 10^6/uL Hemoglobin 12.0 11.5-16.0 g/dL Hematocrit 34 L 35-52 % Mean Corpuscular Volume 95 80-99 fL Mean Corpuscular Hemoglobin 33 25-34 pg Mean Corpuscular Hemoglobin Concent 35 32-36 g/dL Red Cell Distribution Width 12.1 10.0-14.5 % Platelet Count 274 130-400 10^3/uL Mean Platelet Volume 11.0 9.0-12.2 fL Immature Granulocyte % (Auto) 0 % Neutrophils (%) (Auto) 57 42-75 % Lymphocytes (%) (Auto) 35 12-44 % Monocytes (%) (Auto) 6 0-12 % Eosinophils (%) (Auto) 1 0-10 % Basophils (%) (Auto) 0 0-10 % Neutrophils # (Auto) 7.9 H 1.8-7.8 X 10^3 Lymphocytes # (Auto) 4.9 H 1.0-4.0 X 10^3 Monocytes # (Auto) 0.8 0.0-1.0 X 10^3 Eosinophils # (Auto) 0.2 0.0-0.3 10^3/uL Basophils # (Auto) 0.1 0.0-0.1 10^3/uL Immature Granulocyte # (Auto) 0.0 0.0-0.1 10^3/uL Sodium Level 141 135-145 MMOL/L Potassium Level 3.5 L 3.6-5.0 MMOL/L Chloride Level 105 98-107 MMOL/L Carbon Dioxide Level 23 21-32 MMOL/L Anion Gap 13 5-14 MMOL/L Blood Urea Nitrogen 3 L 7-18 MG/DL Creatinine 0.55 L 0.60-1.30 MG/DL Estimat Glomerular Filtration Rate 129 BUN/Creatinine Ratio 5 Glucose Level 91 70-105 MG/DL Calcium Level 9.4 8.5-10.1 MG/DL Corrected Calcium 9.2 8.5-10.1 MG/DL Total Bilirubin 0.3 0.1-1.0 MG/DL Aspartate Amino Transf (AST/SGOT) 15 5-34 U/L Alanine Aminotransferase (ALT/SGPT) 18 0-55 U/L Alkaline Phosphatase 102 40-136 U/L Total Protein 7.3 6.4-8.2 GM/DL Albumin 4.2 3.2-4.5 GM/DL Lipase 19 8-78 U/L My Orders Orders - DANIS LAW MD Comprehensive Metabolic Panel (05/30/21 22:55) Lipase (05/30/21 22:55) Ua Culture If Indicated (05/30/21 22:55) Ed Iv/Invasive Line Start (05/30/21 22:55) Cbc With Automated Diff (05/30/21 22:55) Ct Abdomen/Pelvis W (05/30/21 22:55) Ns Iv 1000 Ml (Sodium Chloride 0.9%) (05/30/21 22:55) Fentanyl Inj (Sublimaze Injection) (05/30/21 22:55) Ondansetron Injection (Zofran Injectio (05/30/21 22:55) Iohexol Injection (Omnipaque 350 Mg/Ml 1 (05/30/21 23:00) Received Contrast (Hold Metformin- Contr (05/30/21 23:00) Ns (Ivpb) (Sodium Chloride 0.9% Ivpb Bag (05/30/21 23:00) Medications Given in ED Current Medications Medications Dose Ordered Sig/Latasha Route Start Time Stop Time Status Last Admin Dose Admin Iohexol 100 ml ONCE ONCE IV 05/30/21 23:00 05/30/21 23:01 DC 05/30/21 23:31 100 ML Sodium Chloride 100 ml ONCE ONCE IV 05/30/21 23:00 05/30/21 23:01 DC 05/30/21 23:31 100 ML Vital Signs/I&O 05/30/21 05/31/21 22:47 00:41 Pulse 62 52 Resp 18 18 B/P (MAP) 129/84 (99) 116/66 Pulse Ox 100 99 O2 Delivery Room Air Room Air Progress Progress Note #1: Progress Note Obtain basic labs as well as urinalysis. Give IV fluids for hydration, Toradol and fentanyl for pain, Protonix for gastritis, Zofran for nausea. CT scan of the abdomen pelvis to evaluate for possible kidney stone versus diverticulitis versus colitis versus bowel obstruction that was causing pain Progress Note #2: Progress Note Labs appear stable without acute significant abnormality. Her CT scan shows no signs of obstruction or distention. She has no diarrhea or blockage on imaging. Patient's pain was improved with treatment in the ED. Counseled on follow-up and return precautions. Advised that could prescribe Bentyl from here and have her check back through the clinic as well as have stronger pain medicine if needed for more severe pain. Diagnostic Imaging Diagonstic Imaging: CT Plain Films/CT/US/NM/MRI: abdomen, pelvis Comments NAME: EUGENIO VILLANUEVA [facility] REC#: [id number] PT STATUS: REG ER : 1990 PHYSICIAN: DANIS LAW MD ADMIT DATE: 05/30/21/ER FS Draft Date of Exam:05/30/21 CT ABDOMEN/PELVIS W PROCEDURE: CT abdomen and pelvis with contrast. TECHNIQUE: Multiple contiguous axial images were obtained through the abdomen and pelvis after administration of intravenous contrast. Auto Exposure Controls were utilized during the CT exam to meet ALARA standards for radiation dose reduction. All CT scans use one or more of the following dose optimizing techniques: automated exposure control, MA and/or KvP adjustment based on patient size and exam type or iterative reconstruction. INDICATION: Abdominal pain and nausea. FINDINGS: The heart size is normal. The lung bases are clear. There is mild fatty infiltration of the liver. There are no focal liver lesions. There is no biliary duct dilatation. The gallbladder is surgically absent. Spleen is normal. The pancreas and adrenal glands are unremarkable. The kidneys are normal in appearance. The aorta is nonaneurysmal. The bowel gas pattern is nonspecific. The appendix appears to be normal. There is no free air. There is no ascites. Bladder is normal. There is no pelvic mass or adenopathy. The osseous structures are unremarkable. IMPRESSION: Fatty infiltration of the liver. Previous cholecystectomy. Unremarkable appendix. No other acute abnormality in the abdomen or pelvis Dictated on workstation # [id number] Dict: 05/30/21 2351 Trans: 05/30/21 2356 [facility] [id number] Interpreted by: GEM GOMEZ MD Electronically signed by: Reviewed: Reviewed by Me Departure Impression Primary Impression: Abdominal pain, diffuse Additional Impression: Gastritis Qualified Codes: K29.30 - Chronic superficial gastritis without bleeding Disposition: HOME, SELF-CARE Condition: Stable Departure-Patient Inst. Decision time for Depature: 00:34 Referrals: JOE HARRIS (PCP) Primary Care Physician [facility] Patient Instructions: Gastritis ED, Abdominal Pain, Adult ED Add. Discharge Instructions: Try taking the Bentyl (Dicyclomine) medicine for abdominal pain/cramping. Follow a low fat bland diet. Check back with clinic and you may need to have a colonoscopy or scope of your stomach to look for reasons you are having pain. All discharge instructions reviewed with patient and/or family. Voiced understanding. Scripts Dicyclomine HCl (Dicyclomine HCl) 20 Mg Tablet 20 MG PO Q6H PRN for abdominal pain/cramping for 15 Days, #60 TAB 0 Refills Prov: DANIS LAW MD 05/31/21 DANIS LAW MD May 30, 2021 22:57
[2021-05-30] MEDS ORDERED: IOHEXOL 350 MG/ML 100 ML (OMNIPAQUE 350) VIAL IV ONE (23:00)
[2021-05-30] MEDS ORDERED: NS 100 ML (IVPB) BAG IV ONE (23:00)
[2021-05-30] MEDS ORDERED: HOLD METFORMIN - RECEIVED CONTRAST 20 ML VIAL IV SCH (23:00)
[2021-05-30 23:06] LABS: CLARITY,URINE CLEAR; COLOR,URINE YELLOW
[2021-05-30 23:07] LABS: BACTERIA,URINE NEGATIVE /HPF; BILIRUBIN,URINE NEGATIVE (NEGATIVE); GLUCOSE, URINE (UA) NEGATIVE (NEGATIVE); KETONES,URINE NEGATIVE (NEGATIVE); LEUKOCYTE ESTERASE ,URINE NEGATIVE (NEGATIVE); NITRITE,URINE NEGATIVE (NEGATIVE); PROTEIN,URINE NEGATIVE (NEGATIVE); RBC,URINE 0-2 /HPF
[2021-05-30 23:12] LABS: BASOPHILS # (AUTO) 0.1 10^3/uL (0.0-0.1); BASOPHILS % (AUTO) 0 % (0-10); EOSINOPHILS # (AUTO) 0.2 10^3/uL (0.0-0.3); EOSINOPHILS % (AUTO) 1 % (0-10); HEMATOCRIT 34 % (35-52); LYMPHOCYTES # (AUTO) 4.9 X 10^3 (1.0-4.0); LYMPHOCYTES % (AUTO) 35 % (12-44); MEAN CORPUSCULAR HEMOGLOBIN 33 pg (25-34); MEAN CORPUSCULAR HGB CONC 35 g/dL (32-36); MEAN CORPUSCULAR VOLUME 95 fL (80-99); MONOCYTES # (AUTO) 0.8 X 10^3 (0.0-1.0); MONOCYTES % (AUTO) 6 % (0-12); NEUTROPHILS # (AUTO) 7.9 X 10^3 (1.8-7.8); NEUTROPHILS % (AUTO) 57 % (42-75); PLATELET COUNT 274 10^3/uL (130-400); WHITE BLOOD COUNT 13.9 10^3/uL (4.3-11.0)
[2021-05-30 23:29] LABS: CREATININE SERUM 0.55 MG/DL (0.60-1.30); POTASSIUM 3.5 MMOL/L (3.6-5.0)
[2021-05-30 23:30] LABS: ALBUMIN 4.2 GM/DL (3.2-4.5); BILIRUBIN,TOTAL 0.3 MG/DL (0.1-1.0); CALCIUM 9.4 MG/DL (8.5-10.1); TOTAL PROTEIN 7.3 GM/DL (6.4-8.2)
--- NOTE | 2021-05-30 23:56 | Diagnostic Imaging Report ---
PROCEDURE: CT abdomen and pelvis with contrast. TECHNIQUE: Multiple contiguous axial images were obtained through the abdomen and pelvis after administration of intravenous contrast. Auto Exposure Controls were utilized during the CT exam to meet ALARA standards for radiation dose reduction. All CT scans use one or more of the following dose optimizing techniques: automated exposure control, MA and/or KvP adjustment based on patient size and exam type or iterative reconstruction. INDICATION: Abdominal pain and nausea. FINDINGS: The heart size is normal. The lung bases are clear. There is mild fatty infiltration of the liver. There are no focal liver lesions. There is no biliary duct dilatation. The gallbladder is surgically absent. Spleen is normal. The pancreas and adrenal glands are unremarkable. The kidneys are normal in appearance. The aorta is nonaneurysmal. The bowel gas pattern is nonspecific. The appendix appears to be normal. There is no free air. There is no ascites. Bladder is normal. There is no pelvic mass or adenopathy. The osseous structures are unremarkable. IMPRESSION: Fatty infiltration of the liver. Previous cholecystectomy. Unremarkable appendix. No other acute abnormality in the abdomen or pelvis Dictated by: Dictated on workstation # [id number]
[2021-05-31] MEDS ORDERED: DICY20TA PO (00:37)
[2021-05-31 00:41] VITALS: BP 116/66
== END 2021-05-31 00:44 | disposition home or self-care (01) ==
LOC: EDUNIT# 22:36 → ER FS 22:37
DX: K29.70 Gastritis, unspecified, without bleeding (principal); J45.909 Unspecified asthma, uncomplicated; K21.9 Gastro-esophageal reflux disease without esophagitis; Z79.899 Other long term (current) drug therapy
CPT/HCPCS: 36415; 74177; 80053; 81000; 83690; 85025

== ENCOUNTER 2022-05-13 20:05 | Emergency (ER) | payer SELFPAY ==
[~2022-05-13] VITALS: Ht 170 cm; Wt 79.1 kg
[~2022-05-13 20:05] MED LIST changes: +ALBU8.5H6 IH; +DICY20TA PO; -RT-ALBUINH IH
--- NOTE | 2022-05-13 20:16 | ED Cough/URI ---
General Chief Complaint: Cough/Cold/Flu Symptoms Stated Complaint: HEADACHE,TROUBLE BREATHING,PRESSURE IN EYES/EARS Source: patient Exam Limitations: no limitations History of Present Illness Date Seen by Provider: May 13, 2022 Time Seen by Provider: 20:10 Initial Comments 31 yo F presents emergency from today for headache, cough, pressure behind her eyes and inner ears for 3 days. No known sick contacts. No fevers or chills.89 y Allergies and Home Medications Allergies Coded Allergies: Amoxicillin (Unverified Allergy, 05/24/11) Patient Home Medication List Home Medication List Reviewed: Yes Albuterol Sulfate (Ventolin Hfa) 1 Puff Puff, 2 PUFF IH Q4H, (Reported) Entered as Reported by: CARYL COPELAND on 09/30/19 09 Azithromycin (Zithromax Tab) 250 Mg Tab, 1 TAB PO DAILY Prescribed by: LOPEZ MARTINEZ on 07/08/122235 Azithromycin (Zithromax) 1 Gm Packet, 1 GM PO, (Reported) Entered as Reported by: CARYL COPELAND on 09/30/19 0939 Benzonatate (Tessalon Perle) 100 Mg Capsule, 100 MG PO, (Reported) Entered as Reported by: CARYL COPELAND on 09/30/19 09 Cyclobenzaprine Hcl (Cyclobenzaprine Hcl) 10 Mg Tablet, 1 EACH PO Q8HR PRN Prescribed by: PAMELA CHAVEZ on 04/04/122225 Dicyclomine HCl (Dicyclomine HCl) 20 Mg Tablet, 20 MG PO Q6H PRN for abdominal pain/cramping Prescribed by: DANIS LAW on 05/31/21 0037 Doxycycline Hyclate (Doxycycline Hyclate) 100 Mg Capsule, 1 EACH PO BID Prescribed by: LOPEZ MARTINEZ on 06/19/12 0200 Estradiol (Estradiol Tablet) 0.5 Mg Tablet, (Reported) Entered as Reported by: CARYL COPELAND on 09/30/19 0939 Fluoxetine Hcl (Prozac) 40 Mg Capsule, 2 EACH PO DAILY, (Reported) Entered as Reported by: JOAN QUINONES on 06/19/12 0137 Guaifenesin/Dextromethorphan (Guaifenesin-Dm Solution) 5 Ml Liquid, 10 ML PO Q4H PRN Prescribed by: LOPEZ MARTINEZ on 07/08/122235 Hydroxyzine Pamoate (Vistaril) 25 Mg Capsule, 25 MG PO Q6H, (Reported) Entered as Reported by: JOAN QUINONES on 06/19/12 0137 Omeprazole (Omeprazole) 20 Mg Capsule., (Reported) Entered as Reported by: CARYL COPELAND on 09/30/19 0939 Prednisone (Prednisone) 50 Mg Tab, 50 MG PO DAILY Prescribed by: KANDIS CAMP on 09/30/19 0950 Prochlorperazine Maleate (Compazine) 10 Mg Tablet, 10 MG PO Q6H Prescribed by: CHARLEE BONDS on 12/30/192227 Review of Systems Review of Systems Constitutional: no symptoms reported EENTM: nose congestion Respiratory: cough, short of breath Cardiovascular: no symptoms reported Gastrointestinal: no symptoms reported Genitourinary: no symptoms reported Musculoskeletal: no symptoms reported Skin: no symptoms reported Psychiatric/Neurological: No Symptoms Reported Hematologic/Lymphatic: No Symptoms Reported Immunological/Allergic: no symptoms reported Past Ilicnec-Myqahn-Sinvku Hx Patient Social History Tobacco Use?: No Use of E-Cig and/or Vaping dev: No Substance use?: No Alcohol Use?: No Past Medical History Surgery/Hospitalization HX: Cholecystectomy, hysterectomy Surgeries: Yes Hysterectomy Respiratory: Yes Asthma Cardiac: No Neurological: No Reproductive Disorders: No Sexually Transmitted Disease: Yes Genitourinary: No Gastrointestinal: No Musculoskeletal: No Chronic Back Pain Endocrine: No HEENT: No Cancer: No Cervical Psychosocial: No Integumentary: No Blood Disorders: No Adverse Reaction/Blood Tranf: No Family Medical History Reviewed Nursing Family Hx No Pertinent Family Hx Physical Exam Vital Signs - First Documented 05/13/22 20:15 Temp 36.2 Pulse 93 Resp 16 B/P (MAP) 134/78 (96) Pulse Ox 100 O2 Delivery Room Air Capillary Refill : Height: '" Weight: lbs. oz. kg; 30.00 BMI Method:Stated General Appearance: WD/WN, no apparent distress HEENT: normal ENT inspection, pharynx normal Neck: non-tender, supple, normal inspection Respiratory: chest non-tender, lungs clear, normal breath sounds, no respiratory distress, no accessory muscle use Cardiovascular: regular rate, rhythm, no edema, no gallop, no JVD, no murmur Gastrointestinal: normal bowel sounds, non tender, soft, no organomegaly Extremities: normal range of motion, non-tender, normal inspection, no pedal edema Neurologic/Psychiatric: alert, normal mood/affect, oriented x 3 Skin: normal color, warm/dry Lymphatic: no adenopathy Progress/Results/Core Measures Suspected Sepsis SIRS Temperature: Pulse: Respiratory Rate: Blood Pressure / Mean: Results/Orders Vital Signs/I&O 05/13/22 05/13/22 20:15 20:20 Temp 36.2 36.2 Pulse 93 93 Resp 16 16 B/P (MAP) 134/78 (96) 134/78 Pulse Ox 100 100 O2 Delivery Room Air Room Air Capillary Refill : Departure Communication (Admissions) Patient is hemodynamically stable with normal vital signs. Discharged in stable condition with supportive care. No indication of bacterial infection that would require antibiotics. Impression Primary Impression: Upper respiratory infection Qualified Codes: J06.9 - Acute upper respiratory infection, unspecified Disposition: HOME, SELF-CARE Condition: Stable Departure-Patient Inst. Referrals: LIZZIE MACK APRN (PCP/Family) Primary Care Physician Patient Instructions: Viral Upper Respiratory Infection, Adult (DC) Add. Discharge Instructions: Use Sudafed as recommended. Use Flonase, 2 sprays in each nostril twice a day. Increase your fluids at home and rest. Return to the emergency department for any severe concerns. Follow-up with primary doctor for any nonemergent needs. All discharge instructions reviewed with patient and/or family. Voiced understanding. Work/School Note: Work Release Form Date Seen in the Emergency Department: May 13, 2022 Return to Work: May 14, 2022 Restrictions: No Restrictions DONAVON SMITH DO May 13, 2022 20:16
[2022-05-13 20:20] VITALS: BP 134/78
== END 2022-05-13 20:26 | disposition home or self-care (01) ==
LOC: EDUNIT# 20:05 → ER FS 20:07
DX: J06.9 Acute upper respiratory infection, unspecified (principal); Z28.310 Unvaccinated for COVID-19
CPT/HCPCS: 99283

== ENCOUNTER 2022-06-22 14:51 | Emergency (ER) | payer SELFPAY ==
[~2022-06-22] VITALS: Ht 170.2 cm; Wt 81.6 kg
[2022-06-22] MEDS ORDERED: DICYCLOMINE 10 MG/ML (BENTYL) 2 ML AMP IM ONE (15:08)
--- NOTE | 2022-06-22 15:10 | ED General ---
General Stated Complaint: FALLS; ALTERED VISION; SUPRAPUBIC PAIN Source of Information: Patient Exam Limitations: No Limitations History of Present Illness Date Seen by Provider: Jun 22, 2022 Time Seen by Provider: 15:00 Initial Comments 31-year-old female presents to the emergency department today for headache, dizziness, abdominal pain and nausea. Symptoms started on Wednesday as a migraine headache. She had dizziness which is fairly typical for her migraine headaches. She then states she was falling to the left side. She has had this happen with previous migraines however it is not frequent. She states yesterday she started to have some chills and nausea. Today she developed bilateral lower abdominal pain. She described as sharp stabbing bilateral without any aggravating or alleviating factors. No radiation. Moderate. She has been using Tylenol without much relief. Notably on Wednesday she was seen at the walk- in clinic and told she had a "GI bug." No sick contacts. No chest pain, cough. Allergies and Home Medications Allergies Coded Allergies: Amoxicillin (Unverified Allergy, 05/24/11) Patient Home Medication List Home Medication List Reviewed: Yes Albuterol Sulfate (Ventolin Hfa) 1 Puff Puff, 2 PUFF IH Q4H, (Reported) Entered as Reported by: CARYL COPELAND on 09/30/19938 Azithromycin (Zithromax Tab) 250 Mg Tab, 1 TAB PO DAILY Prescribed by: LOPEZ MARTINEZ on 07/08/122235 Azithromycin (Zithromax) 1 Gm Packet, 1 GM PO, (Reported) Entered as Reported by: CARYL COPELAND on 09/30/19938 Benzonatate (Tessalon Perle) 100 Mg Capsule, 100 MG PO, (Reported) Entered as Reported by: CARYL COPELAND on 09/30/19938 Cyclobenzaprine Hcl (Cyclobenzaprine Hcl) 10 Mg Tablet, 1 EACH PO Q8HR PRN Prescribed by: PAMELA CHAVEZ on 04/04/12 2226 Dicyclomine HCl (Dicyclomine HCl) 20 Mg Tablet, 20 MG PO Q6H PRN for abdominal pain/cramping Prescribed by: DANIS LAW on 05/31/21 0037 Dicyclomine HCl (Dicyclomine HCl) 20 Mg Tablet, 20 MG PO QID Prescribed by: DONAVON SMITH MD on 06/22/22 1643 Last Action: New Order Doxycycline Hyclate (Doxycycline Hyclate) 100 Mg Capsule, 1 EACH PO BID Prescribed by: LOPEZ MARTINEZ on 06/19/12 0200 Estradiol (Estradiol Tablet) 0.5 Mg Tablet, (Reported) Entered as Reported by: CARYL COPELAND on 09/30/19 0939 Fluoxetine Hcl (Prozac) 40 Mg Capsule, 2 EACH PO DAILY, (Reported) Entered as Reported by: JOAN QUINONES on 06/19/12 013 Guaifenesin/Dextromethorphan (Guaifenesin-Dm Solution) 5 Ml Liquid, 10 ML PO Q4H PRN Prescribed by: LOPEZ MARTINEZ on 07/08/12 223 Hydroxyzine Pamoate (Vistaril) 25 Mg Capsule, 25 MG PO Q6H, (Reported) Entered as Reported by: JOAN QUINONES on 06/19/12 013 Omeprazole (Omeprazole) 20 Mg Capsule.dr (Reported) Entered as Reported by: CARYL COPELAND on 09/30/19 09 Prednisone (Prednisone) 50 Mg Tab, 50 MG PO DAILY Prescribed by: KANDIS CAMP on 09/30/19 0950 Prochlorperazine Maleate (Compazine) 10 Mg Tablet, 10 MG PO Q6H Prescribed by: CHARLEE BONDS on 12/30/192227 Review of Systems Review of Systems Constitutional: chills EENTM: no symptoms reported Respiratory: no symptoms reported Cardiovascular: no symptoms reported Gastrointestinal: abdominal pain, nausea Genitourinary: no symptoms reported Musculoskeletal: no symptoms reported Skin: no symptoms reported Psychiatric/Neurological: No Symptoms Reported Past Edqbsiq-Xidvgm-Jnxgut Hx Patient Social History Tobacco Use?: Yes Use of E-Cig and/or Vaping dev: No Substance use?: No Alcohol Use?: No Past Medical History Surgery/Hospitalization HX: Cholecystectomy, hysterectomy Surgeries: Yes Hysterectomy Respiratory: Yes Asthma Cardiac: No Neurological: No Reproductive Disorders: No Sexually Transmitted Disease: Yes Genitourinary: No Gastrointestinal: No Musculoskeletal: No Chronic Back Pain Endocrine: No HEENT: No Cancer: No Cervical Psychosocial: No Integumentary: No Blood Disorders: No Adverse Reaction/Blood Tranf: No Family Medical History Reviewed Nursing Family Hx No Pertinent Family Hx Physical Exam Vital Signs Vital Signs - First Documented 06/22/22 06/22/22 14:56 16:42 Temp 37.6 Pulse 88 Resp 20 B/P (MAP) 161/78 (105) Pulse Ox 100 O2 Delivery Room Air Capillary Refill : Height, Weight, BMI Height: '" Weight: lbs. oz. kg; 27.00 BMI Method:Stated General Appearance: No Apparent Distress, WD/WN HEENT: Normal ENT Inspection, Pharynx Normal Neck: Full Range of Motion, Normal Inspection, Non Tender, Supple Respiratory: Chest Non Tender, Lungs Clear, Normal Breath Sounds, No Accessory Muscle Use, No Respiratory Distress Cardiovascular: Regular Rate, Rhythm, No Murmur, Normal Peripheral Pulses Gastrointestinal: Normal Bowel Sounds, No Organomegaly, Soft, Tenderness (T enderness palpation even light touch to her bilateral lower abdomen. There is voluntary guarding without any rebound tenderness. No mass organomegaly. 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 Skin: Normal Color, Warm/Dry Lymphatic: No Adenopathy Progress/Results/Core Measures Suspected Sepsis SIRS Temperature: Pulse: Respiratory Rate: Laboratory Tests 06/22/22 15:07: White Blood Count 8.5 Blood Pressure / Mean: Laboratory Tests 06/22/22 15:07: Creatinine 0.59L, Platelet Count 271, Total Bilirubin 0.3 Results/Orders Lab Results Laboratory Tests Test 06/22/22 15:07 06/22/22 16:05 Range/Units White Blood Count 8.5 4.3-11.0 10^3/uL Red Blood Count 3.92 3.80-5.11 10^6/uL Hemoglobin 12.5 11.5-16.0 g/dL Hematocrit 36 35-52 % Mean Corpuscular Volume 93 80-99 fL Mean Corpuscular Hemoglobin 32 25-34 pg Mean Corpuscular Hemoglobin Concent 34 32-36 g/dL Red Cell Distribution Width 12.0 10.0-14.5 % Platelet Count 271 130-400 10^3/uL Mean Platelet Volume 10.8 9.0-12.2 fL Immature Granulocyte % (Auto) 0 % Neutrophils (%) (Auto) 54 42-75 % Lymphocytes (%) (Auto) 40 12-44 % Monocytes (%) (Auto) 5 0-12 % Eosinophils (%) (Auto) 1 0-10 % Basophils (%) (Auto) 1 0-10 % Neutrophils # (Auto) 4.6 1.8-7.8 10^3/uL Lymphocytes # (Auto) 3.4 1.0-4.0 10^3/uL Monocytes # (Auto) 0.4 0.0-1.0 10^3/uL Eosinophils # (Auto) 0.1 0.0-0.3 10^3/uL Basophils # (Auto) 0.0 0.0-0.1 10^3/uL Immature Granulocyte # (Auto) 0.0 0.0-0.1 10^3/uL Sodium Level 140 135-145 MMOL/L Potassium Level 3.4 L 3.6-5.0 MMOL/L Chloride Level 105 98-107 MMOL/L Carbon Dioxide Level 23 21-32 MMOL/L Anion Gap 12 5-14 MMOL/L Blood Urea Nitrogen 4 L 7-18 MG/DL Creatinine 0.59 L 0.60-1.30 MG/DL Estimat Glomerular Filtration Rate 123 BUN/Creatinine Ratio 7 Glucose Level 114 H 70-105 MG/DL Calcium Level 9.3 8.5-10.1 MG/DL Corrected Calcium 9.2 8.5-10.1 MG/DL Total Bilirubin 0.3 0.1-1.0 MG/DL Aspartate Amino Transf (AST/SGOT) 17 5-34 U/L Alanine Aminotransferase (ALT/SGPT) 19 0-55 U/L Alkaline Phosphatase 108 40-136 U/L Total Protein 6.9 6.4-8.2 GM/DL Albumin 4.1 3.2-4.5 GM/DL Lipase 16 8-78 U/L Urine Color YELLOW Urine Clarity CLEAR Urine pH 7.0 5-9 Urine Specific [place] <=1.005 1.016-1.022 Urine Protein NEGATIVE NEGATIVE Urine Glucose (UA) NEGATIVE NEGATIVE Urine Ketones NEGATIVE NEGATIVE Urine Nitrite NEGATIVE NEGATIVE Urine Bilirubin NEGATIVE NEGATIVE Urine Urobilinogen 0.2 < = 1.0 MG/DL Urine Leukocyte Esterase NEGATIVE NEGATIVE Urine RBC (Auto) NEGATIVE NEGATIVE Urine RBC NONE /HPF Urine WBC NONE /HPF Urine Squamous Epithelial Cells 0-2 /HPF Urine Crystals NONE /LPF Urine Bacteria NEGATIVE /HPF Urine Casts NONE /LPF Urine Mucus NEGATIVE /LPF Urine Culture Indicated NO My Orders Orders - SARAHDONAVON Dietz DO Cbc With Automated Diff (06/22/22 15:07) Comprehensive Metabolic Panel (06/22/22 15:07) Lipase (06/22/22 15:07) Ct Head Wo (06/22/22 15:07) Ct Abdomen/Pelvis W (06/22/22 15:07) Dicyclomine Injection (Bentyl Injection) (06/22/22 15:08) Ua Culture If Indicated (06/22/22 15:11) Iohexol Injection (Omnipaque 350 Mg/Ml 1 (06/22/22 15:15) Received Contrast (Hold Metformin- Contr (06/22/22 15:15) Ns (Ivpb) (Sodium Chloride 0.9% Ivpb Bag (06/22/22 15:15) Medications Given in ED Vital Signs/I&O 06/22/22 06/22/22 14:56 16:42 Temp 37.6 37.6 Pulse 88 78 Resp 20 20 B/P (MAP) 161/78 (105) 155/72 Pulse Ox 100 O2 Delivery Room Air Room Air Capillary Refill : Departure Communication (Admissions) All test ordered and independently reviewed by myself. No evidence for pancreatitis, other acute intra-abdominal pathology. Electrolytes are all normal. No acidosis. Normal renal function CBC shows no evidence for anemia, thrombocytopenia. No leukocytosis. CT of her brain shows no evidence for hemorrhage or focal areas of infarction. Exam does not support diagnosis of stroke either. No cerebellar symptoms. I reviewed the CT of the abdomen pelvis and brain independently and did not see any acute findings. This is confirmed on radiology read once available. CT abdomen pelvis obtained due to significant tenderness on exam. Thisis negative except for hepatic steatosis and possible cystitis. Urine is negative for any evidence for infection. I believe her pain is related to peristaltic cramping likely from enteritis. Discussed this with josse montes at length. Will discharge with Bentyl and close follow-up. Previous ER records reviewed there is no concern of chronic emergent condition. Impression Primary Impression: Lower abdominal pain Disposition: HOME, SELF-CARE Condition: Stable Departure-Patient Inst. Referrals: LIZZIE MACK APRN (PCP) Primary Care Physician [facility] (Family) Primary Care Physician Patient Instructions: Abdominal Pain, Adult ED Add. Discharge Instructions: There is no evidence for an emergent medical condition at this time. Believe you likely have a GI infection called enteritis. Increase your fluids at home, rest as needed. Use the Bentyl medicine as needed for cramping type pains. Return to the emergency department for any severe pain or if your symptoms change in any way concerning to you. Follow-up with your primary doctor in the next 48 hours should your symptoms persist. Scripts Dicyclomine HCl (Dicyclomine HCl) 20 Mg Tablet 20 MG PO QID for Abdominal Pain for 5 Days, #20 TAB Prov: DONAVON SMITH DO 06/22/22 DONAVON SMITH DO Jun 22, 2022 15:10
[2022-06-22] MEDS ORDERED: NS 100 ML (IVPB) BAG IV ONE (15:15)
[2022-06-22] MEDS ORDERED: HOLD METFORMIN - RECEIVED CONTRAST 20 ML VIAL IV SCH (15:15)
[2022-06-22] MEDS ORDERED: IOHEXOL 350 MG/ML 100 ML (OMNIPAQUE 350) VIAL IV ONE (15:15)
[2022-06-22 15:18] LABS: BASOPHILS % (AUTO) 1 % (0-10); EOSINOPHILS # (AUTO) 0.1 10^3/uL (0.0-0.3); EOSINOPHILS % (AUTO) 1 % (0-10); HEMATOCRIT 36 % (35-52); HEMOGLOBIN 12.5 g/dL (11.5-16.0); LYMPHOCYTES # (AUTO) 3.4 10^3/uL (1.0-4.0); LYMPHOCYTES % (AUTO) 40 % (12-44); MEAN CORPUSCULAR HEMOGLOBIN 32 pg (25-34); MEAN CORPUSCULAR HGB CONC 34 g/dL (32-36); MEAN CORPUSCULAR VOLUME 93 fL (80-99); MEAN PLATELET VOLUME 10.8 fL (9.0-12.2); MONOCYTES # (AUTO) 0.4 10^3/uL (0.0-1.0); MONOCYTES % (AUTO) 5 % (0-12); NEUTROPHILS # (AUTO) 4.6 10^3/uL (1.8-7.8); NEUTROPHILS % (AUTO) 54 % (42-75); PLATELET COUNT 271 10^3/uL (130-400); WHITE BLOOD COUNT 8.5 10^3/uL (4.3-11.0)
--- NOTE | 2022-06-22 15:47 | Diagnostic Imaging Report ---
INDICATION: Dizziness and headache and falls. TECHNIQUE: Multiple contiguous axial images were obtained through the brain without the use of intravenous contrast. Auto Exposure Controls were utilized during the CT exam to meet ALARA standards for radiation dose reduction. Comparison is made to 12/30/2019. FINDINGS: There are no extra-axial fluid collections. No intracranial hemorrhage. No intracranial mass or mass effect. No midline shift. The ventricles are normal in size and position. There were no focal parenchymal abnormalities in the brain. Calvarial windows appear unremarkable. IMPRESSION: Negative noncontrast brain CT. Dictated by: Dictated on workstation # [id number]
--- NOTE | 2022-06-22 15:49 | Diagnostic Imaging Report ---
PROCEDURE: CT abdomen and pelvis with contrast. TECHNIQUE: Multiple contiguous axial images were obtained through the abdomen and pelvis after administration of intravenous contrast. Auto Exposure Controls were utilized during the CT exam to meet ALARA standards for radiation dose reduction. All CT scans use one or more of the following dose optimizing techniques: Automated exposure control, MA and/or KvP adjustment based on patient size and exam type or iterative reconstruction. INDICATION: Dizziness and headache. COMPARISON: 05/30/2021. FINDINGS: Low density throughout the liver indicates steatosis. No focal hepatic abnormality is identified. Gallbladder is surgically absent. There is no biliary ductal dilatation. No pancreatic or adrenal gland abnormality is identified. Spleen is also unremarkable. There is a subcentimeter cyst in the superior pole of left kidney. There may be minimal cyst in the lower pole of the right kidney. There is no hydronephrosis or evidence of solid renal mass. No free fluid is seen within the abdomen or pelvis. There is mild fluid distention of small bowel loops, which may reflect ileus or possible enteritis. Mural thickening at the bladder is noted without definite filling defect. The appendix is unremarkable, and the uterus is surgically absent. IMPRESSION: Hepatic steatosis and possible cystitis. Clinical correlation would be of use. Otherwise, no definite acute abnormality is seen. Dictated by: Dictated on workstation # [id number]
[2022-06-22 15:53] LABS: ALBUMIN 4.1 GM/DL (3.2-4.5); BILIRUBIN,TOTAL 0.3 MG/DL (0.1-1.0); CALCIUM 9.3 MG/DL (8.5-10.1); CREATININE SERUM 0.59 MG/DL (0.60-1.30); POTASSIUM 3.4 MMOL/L (3.6-5.0); TOTAL PROTEIN 6.9 GM/DL (6.4-8.2)
[2022-06-22 16:27] LABS: BILIRUBIN,URINE NEGATIVE (NEGATIVE); CLARITY,URINE CLEAR; COLOR,URINE YELLOW; GLUCOSE, URINE (UA) NEGATIVE (NEGATIVE); KETONES,URINE NEGATIVE (NEGATIVE); LEUKOCYTE ESTERASE ,URINE NEGATIVE (NEGATIVE); NITRITE,URINE NEGATIVE (NEGATIVE); PROTEIN,URINE NEGATIVE (NEGATIVE)
[2022-06-22 16:30] LABS: BACTERIA,URINE NEGATIVE /HPF; SQUAMOUS EPITHELIAL CELL,UR 0-2 /HPF
[2022-06-22 16:42] VITALS: BP 155/72
[2022-06-22] MEDS ORDERED: DICY20TA PO (16:43)
== END 2022-06-22 16:43 | disposition home or self-care (01) ==
LOC: EDUNIT# 14:51 → ER FS 14:52
DX: R10.31 Right lower quadrant pain (principal); R10.32 Left lower quadrant pain; Z90.49 Acquired absence of other specified parts of digestive tract; Z28.310 Unvaccinated for COVID-19
CPT/HCPCS: 36415; 70450; 74177; 80053; 81000; 83690; 85025; Q9967

== ENCOUNTER 2022-11-12 00:18 | Emergency (ER) | payer SELFPAY ==
[~2022-11-12] VITALS: Ht 167 cm; Wt 83.5 kg
[2022-11-12] MEDS ORDERED: FAMOTIDINE 20MG/2ML IV (PEPCID) IV STA (00:34)
--- NOTE | 2022-11-12 00:34 | ED Abdominal Pain ---
General Stated Complaint: ABD PAIN|VOMITING History of Present Illness Date Seen by Provider: Nov 12, 2022 Time Seen by Provider: 00:29 Initial Comments 32-year-old female presents with epigastric pain. Patient reports has been having some discomfort on and off for couple days and some nausea and vomiting going on and off for few days to a week. Patient does have a history of reflux though it may have just that. She did feel better emesis a little different tonight and is more frequent and just want to have be evaluated. Allergies and Home Medications Allergies Coded Allergies: Amoxicillin (Unverified Allergy, 05/24/11) Patient Home Medication List Home Medication List Reviewed: Yes Albuterol Sulfate (Ventolin Hfa) 1 Puff Puff, 2 PUFF IH Q4H, (Reported) Entered as Reported by: CARYL COPELAND on 09/30/19938 Azithromycin (Zithromax Tab) 250 Mg Tab, 1 TAB PO DAILY Prescribed by: LOPEZ MARTINEZ on 07/08/12 2236 Azithromycin (Zithromax) 1 Gm Packet, 1 GM PO, (Reported) Entered as Reported by: CARYL COPELAND on 09/30/19 0939 Benzonatate (Tessalon Perle) 100 Mg Capsule, 100 MG PO, (Reported) Entered as Reported by: CARYL COPELAND on 09/30/1939 Cyclobenzaprine Hcl (Cyclobenzaprine Hcl) 10 Mg Tablet, 1 EACH PO Q8HR PRN Prescribed by: PAMELA CHAVEZ on 04/04/12 2226 Dicyclomine HCl (Dicyclomine HCl) 20 Mg Tablet, 20 MG PO Q6H PRN for abdominal pain/cramping Prescribed by: DANIS LAW on 05/31/21 0037 Dicyclomine HCl (Dicyclomine HCl) 20 Mg Tablet, 20 MG PO QID Prescribed by: DONAVON SMITH MD on 06/22/22 1643 Doxycycline Hyclate (Doxycycline Hyclate) 100 Mg Capsule, 1 EACH PO BID Prescribed by: LOPEZ MARTINEZ on 06/19/12 0200 Estradiol (Estradiol Tablet) 0.5 Mg Tablet, (Reported) Entered as Reported by: CARYL COPELAND on 09/30/19 0939 Fluoxetine Hcl (Prozac) 40 Mg Capsule, 2 EACH PO DAILY, (Reported) Entered as Reported by: JOAN QUINONES on 06/19/12 013 Guaifenesin/Dextromethorphan (Guaifenesin-Dm Solution) 5 Ml Liquid, 10 ML PO Q4H PRN Prescribed by: LOPEZ MARTINEZ on 07/08/122235 Hydroxyzine Pamoate (Vistaril) 25 Mg Capsule, 25 MG PO Q6H, (Reported) Entered as Reported by: JOAN QUINONES on 06/19/12 013 Omeprazole (Omeprazole) 20 Mg Capsule., (Reported) Entered as Reported by: CARYL COPELAND on 09/30/19 0939 Ondansetron (Ondansetron Odt) 4 Mg Tab.rapdis, 4 MG PO Q6H PRN for NAUSEA/VOMITING Prescribed by: UMESH PEÑA on 11/12/22 012 Prednisone (Prednisone) 50 Mg Tab, 50 MG PO DAILY Prescribed by: KANDIS CAMP on 09/30/19 0950 Prochlorperazine Maleate (Compazine) 10 Mg Tablet, 10 MG PO Q6H Prescribed by: CHARLEE BONDS on 12/30/192227 Review of Systems Review of Systems Constitutional: No chills, No fever Respiratory: Denies Cough Cardiovascular: Denies Chest Pain Gastrointestinal: Abdominal Pain, Nausea, Vomiting Genitourinary: No Symptoms Reported Musculoskeletal: no symptoms reported Skin: no symptoms reported Psychiatric/Neurological: No Symptoms Reported Endocrine: No Symptoms Reported Hematologic/Lymphatic: No Symptoms Reported Past Enkllcy-Qucthe-Osnugu Hx Past Medical History Surgery/Hospitalization HX: Cholecystectomy, hysterectomy Surgeries: Yes Hysterectomy Respiratory: Yes Asthma Cardiac: No Neurological: No Reproductive Disorders: No Sexually Transmitted Disease: Yes Genitourinary: No Gastrointestinal: No Musculoskeletal: No Chronic Back Pain Endocrine: No HEENT: No Cancer: No Cervical Psychosocial: No Integumentary: No Blood Disorders: No Adverse Reaction/Blood Tranf: No Family Medical History No Pertinent Family Hx Physical Exam Vital Signs Vital Signs - First Documented 11/12/22 00:40 Temp 36.4 Pulse 65 Resp 16 B/P (MAP) 142/73 (96) Pulse Ox 99 O2 Delivery Room Air Capillary Refill : Height/Weight/BMI Height: '" Weight: lbs. oz. kg; 28.00 BMI Method:Stated General Appearance: WD/WN Neck: full range of motion, supple Respiratory: lungs clear, normal breath sounds Gastrointestinal: soft, tenderness (Epigastric) Neurologic/Psychiatric: alert, normal mood/affect, oriented x 3 Skin: normal color, warm/dry Progress/Results/Core Measures Results/Orders Lab Results Laboratory Tests Test 11/12/22 00:40 Range/Units White Blood Count 11.3 H 4.3-11.0 10^3/uL Red Blood Count 3.94 3.80-5.11 10^6/uL Hemoglobin 13.0 11.5-16.0 g/dL Hematocrit 37 35-52 % Mean Corpuscular Volume 95 80-99 fL Mean Corpuscular Hemoglobin 33 25-34 pg Mean Corpuscular Hemoglobin Concent 35 32-36 g/dL Red Cell Distribution Width 11.6 10.0-14.5 % Platelet Count 275 130-400 10^3/uL Mean Platelet Volume 11.4 9.0-12.2 fL Immature Granulocyte % (Auto) 0 % Neutrophils (%) (Auto) 44 42-75 % Lymphocytes (%) (Auto) 50 H 12-44 % Monocytes (%) (Auto) 5 0-12 % Eosinophils (%) (Auto) 1 0-10 % Basophils (%) (Auto) 0 0-10 % Neutrophils # (Auto) 4.9 1.8-7.8 10^3/uL Lymphocytes # (Auto) 5.6 H 1.0-4.0 10^3/uL Monocytes # (Auto) 0.5 0.0-1.0 10^3/uL Eosinophils # (Auto) 0.1 0.0-0.3 10^3/uL Basophils # (Auto) 0.1 0.0-0.1 10^3/uL Immature Granulocyte # (Auto) 0.0 0.0-0.1 10^3/uL Sodium Level 144 135-145 MMOL/L Potassium Level 3.2 L 3.6-5.0 MMOL/L Chloride Level 107 98-107 MMOL/L Carbon Dioxide Level 24 21-32 MMOL/L Anion Gap 13 5-14 MMOL/L Blood Urea Nitrogen 5 L 7-18 MG/DL Creatinine 0.55 L 0.60-1.30 MG/DL Estimat Glomerular Filtration Rate 124 BUN/Creatinine Ratio 9 Glucose Level 113 H 70-105 MG/DL Calcium Level 9.4 8.5-10.1 MG/DL Corrected Calcium 9.2 8.5-10.1 MG/DL Total Bilirubin 0.3 0.1-1.0 MG/DL Aspartate Amino Transf (AST/SGOT) 15 5-34 U/L Alanine Aminotransferase (ALT/SGPT) 18 0-55 U/L Alkaline Phosphatase 119 40-136 U/L Total Protein 7.1 6.4-8.2 GM/DL Albumin 4.2 3.2-4.5 GM/DL Lipase 26 8-78 U/L My Orders Orders - PEÑA,UMESH L DO Cbc With Automated Diff (11/12/22 00:34) Comprehensive Metabolic Panel (11/12/22 00:34) Lipase (11/12/22 00:34) Ondansetron Injection (Zofran Injectio (11/12/22 00:45) Ns Iv 1000 Ml (Sodium Chloride 0.9%) (11/12/22 00:34) Famotidine Injection (Pepcid Injection) (11/12/22 00:34) Ns Iv 1000 Ml (Sodium Chloride 0.9%) (11/12/22 00:55) Lidocaine 2% Viscous 15 Ml (Xylocaine Vi (11/12/22 01:30) Antacid Suspension (Mylanta Suspension (11/12/22 01:30) Medications Given in ED Current Medications Medications Dose Ordered Sig/Latasha Route Start Time Stop Time Status Last Admin Dose Admin Al Hydrox/Mg Hydrox/Simethicone 30 ml ONCE ONCE PO 11/12/22 01:30 11/12/22 01:31 DC 11/12/22 01:29 30 ML Lidocaine HCl 15 ml ONCE ONCE PO 11/12/22 01:30 11/12/22 01:31 DC 11/12/22 01:29 15 ML Ondansetron HCl 4 mg ONCE ONCE IVP 11/12/22 00:45 11/12/22 00:46 DC 11/12/22 00:49 4 MG Vital Signs/I&O 11/12/22 11/12/22 00:40 01:40 Temp 36.4 Pulse 65 64 Resp 16 18 B/P (MAP) 142/73 (96) 111/74 Pulse Ox 99 99 O2 Delivery Room Air Room Air Progress Progress Note : Progress Note Patient is diagnostics as ordered reviewed and interpreted by me. Patient's labs showed no concerning acute findings. Patient's AST ALT and lipase were all within normal range. Patient had no episodes of vomiting while in the ER. She does report she felt better with the Pepcid and Zofran. I did also provide her with a GI cocktail prior to discharge. Patient is likely with gastritis. She is currently on Protonix and will need to continue this and follow-up with her primary care provider for further evaluation if her symptoms or not improving and with possible referral to GI specialist or general surgery for EGD and further management. Patient was stable upon discharge Departure Impression Primary Impression: Gastritis Qualified Codes: K29.70 - Gastritis, unspecified, without bleeding Disposition: HOME, SELF-CARE Condition: Stable Departure-Patient Inst. Referrals: [facility] (PCP/Family) Primary Care Physician Patient Instructions: Gastritis (DC) Add. Discharge Instructions: Clear liquid diet for 24 hours then advance as tolerated follow-up with your primary care provider for recheck in a couple days and further treatment including possible EGD if symptoms or not improving Scripts Ondansetron (Ondansetron Odt) 4 Mg Tab.rapdis 4 MG PO Q6H PRN for NAUSEA/VOMITING, #20 TAB 0 Refills Prov: UMESH PEÑA DO 11/12/22 UMESH PEÑA DO Nov 12, 2022 00:34
[2022-11-12] MEDS ORDERED: ONDANSETRON 4 MG/2 ML (SDV) Z0FRAN IVP ONE (00:45)
[2022-11-12] MEDS: NS IV 1000 ML 1,000 ML IV STA (00:49)
[2022-11-12 00:51] LABS: BASOPHILS # (AUTO) 0.1 10^3/uL (0.0-0.1); BASOPHILS % (AUTO) 0 % (0-10); EOSINOPHILS # (AUTO) 0.1 10^3/uL (0.0-0.3); EOSINOPHILS % (AUTO) 1 % (0-10); HEMATOCRIT 37 % (35-52); LYMPHOCYTES # (AUTO) 5.6 10^3/uL (1.0-4.0); LYMPHOCYTES % (AUTO) 50 % (12-44); MEAN CORPUSCULAR HEMOGLOBIN 33 pg (25-34); MEAN CORPUSCULAR HGB CONC 35 g/dL (32-36); MEAN CORPUSCULAR VOLUME 95 fL (80-99); MEAN PLATELET VOLUME 11.4 fL (9.0-12.2); MONOCYTES # (AUTO) 0.5 10^3/uL (0.0-1.0); MONOCYTES % (AUTO) 5 % (0-12); NEUTROPHILS # (AUTO) 4.9 10^3/uL (1.8-7.8); NEUTROPHILS % (AUTO) 44 % (42-75); PLATELET COUNT 275 10^3/uL (130-400); WHITE BLOOD COUNT 11.3 10^3/uL (4.3-11.0)
[2022-11-12] MEDS ORDERED: NS IV 1000 ML 1,000 ML ONE (00:55)
[2022-11-12 01:17] LABS: POTASSIUM 3.2 MMOL/L (3.6-5.0)
[2022-11-12 01:18] LABS: ALBUMIN 4.2 GM/DL (3.2-4.5); BILIRUBIN,TOTAL 0.3 MG/DL (0.1-1.0); CALCIUM 9.4 MG/DL (8.5-10.1); CREATININE SERUM 0.55 MG/DL (0.60-1.30); TOTAL PROTEIN 7.1 GM/DL (6.4-8.2)
[2022-11-12] MEDS ORDERED: ONDA4TAB11 PO (01:25)
[2022-11-12] MEDS ORDERED: ANTACID SUSP 30 ML UDC (MYLANTA) PO ONE (01:30)
[2022-11-12] MEDS ORDERED: LIDOCAINE 2% VISCOUS 15 ML UDC PO ONE (01:30)
[2022-11-12 01:40] VITALS: BP 111/74
== END 2022-11-12 01:40 | disposition home or self-care (01) ==
LOC: EDUNIT# 00:18 → ER FS 00:20
DX: K29.70 Gastritis, unspecified, without bleeding (principal); Z90.49 Acquired absence of other specified parts of digestive tract; Z28.310 Unvaccinated for COVID-19
CPT/HCPCS: 36415; 80053; 83690; 85025